=== PATIENT | female | born 1955 | race Caucasian/White ===

== ENCOUNTER 2017-10-25 10:50 | Emergency (ER) | payer MEDICARE, MEDICAID, SELFPAY ==
[2017-10-25 10:59] VITALS: BP 141/81; PULSE 88; RESP 18; TEMP 36.7; O2SAT 94
--- NOTE | 2017-10-25 12:00 | ED.GENADUL_ITS ---
Discharge Plan Discharge Details Chief Complaint: RashLesion Clinical Impression: Rash, Dermatitis Primary Care Provider: Murphy Stewart ED Provider: Diana Bo Disposition Patient Disposition: HOME Home Meds and New Rx's Prescriptions: New prednisone 20 mg tablet 20 mg PO DIRECTED Qty: 12 RF: 0 cephalexin [Keflex] 500 mg capsule 500 mg PO QID Qty: 28 RF: 0 hydrocortisone 2.5 % cream 1 applic TP BID Qty: 30 RF: 0 Continue aspirin [Aspirin Low-Strength] 81 MG tablet,chewable 1 - 2 tab PO DAILY PRNRF: 0 multivitamin [Daily-Lorin] 1 EACH tablet 1 ea PO DAILY RF: 0 Discharge Instructions Instructions: Dermatitis (ED) Additional Instructions: Take the oral steroids and antibiotics until finished. Once you have finished the oral steroids, he may start the 2% hydrocortisone cream if needed for your chronic itchy rash. Call your time study engineer to schedule follow-up appointment for reevaluation. Follow up with your primary care doctor in 1 week for reevaluation. Return to the emergency department with any worsening or new concerning symptoms. Discharge Data Discharge Physician: Diana Bo Medical Decision Making MDM Narrative Medical decision making narrative: 62-year-old female who presents for pruritic mildly tender rash on her right forearm for the past month. She states she has been treating it at home with hydrocortisone, Vaseline and peroxide without relief. She denies new exposures or meds. She denies difficulty breathing, throat swelling or difficulty swallowing. She does have scattered excoriations noted on her bilateral upper and lower extremities which appear consistent with picking of her skin. She does admit to picking due to itching. She states she has had a chronic rash on her right hip for the past year which she has seen dermatology for and treated with hydrocortisone. She states it has persisted. We talked about the possibility of bug bites and she states this is possible. The rash on her right forearm appears similar in presentation to the excoriations on the remainder of her extremities but is more coalesced and with surrounding scaling and dermatitis with the possibility of a very mild superficial bacterial infection. There is no abscess or significant cellulitis. I do not see any indication for lab work and imaging and patient is agreeable. Patient otherwise has normal vitals and appears nontoxic. Patient has a noted allergy to Trimox which causes hives. She states she otherwise has taken Keflex in the past for cellulitis and has tolerated this well without any respiratory symptoms. Patient is requesting Keflex for an antibiotic if needed. Will treat with oral steroid course as well as prescription for Keflex. Patient is instructed to follow-up with dermatology again for reevaluation. She also expressed concern about the chronic right hip and thigh rash for the past year. This rash does appear similar in presentation to the other excoriations noted on her upper extremities. She states 1% hydrocortisone has not worked in the past and 5% hydrocortisone was too strong for her and made her feel shaky. We will also give a prescription for 2% hydrocortisone to start after the p.o. steroids if needed. Patient was instructed to return to the ER with any concerns. HPI - General Adult General Mode of arrival: ambulatory . Date/Time Provider Initiated Documentation: 10/25/17 11:08 . Limitations to Documentation: no limitations . Information obtained by: patient . HPI Narrative: Patient is a 62-year-old female who presents with itchy mildly tender rash on her right forearm for the past month. She has been treating at home with hydrocortisone, peroxide and Vaseline. She denies any new medicines, lotions, detergents, soaps, recent travel or sick contacts. She denies fever, difficulty swallowing or difficulty breathing. Related Data Home Medications Medication Instructions Recorded Confirmed aspirin [Aspirin Low-Strength] 1 - 2 tab PO DAILY PRN tab-cap 08/07/12 10/25/17 multivitamin [Daily-Lorin] 1 ea PO DAILY 07/05/17 10/25/17 Previous Rx's Medication Instructions Recorded cephalexin [Keflex] 500 mg PO QID #28 cap 10/25/17 hydrocortisone 1 applic TP BID #30 gm 10/25/17 prednisone 20 mg PO DIRECTED #12 tab 10/25/17 Allergies Allergy/AdvReac Type Severity Reaction Status Date / Time erythromycin base Allergy Intermediate HEART RACES Unverified 10/25/17 11:05 lidocaine Allergy Intermediate CHEST PAINS Unverified 10/25/17 11:05 amoxicillin trihydrate Allergy Mild Unverified 10/25/17 11:05 [From Trimox] mepivacaine AdvReac Unknown RAPID Unverified 10/25/17 11:05 HEART RATE General Stated Complaint: RashLesion UMU: 4 Review of Systems Review of Systems All systems reviewed & are unremarkable except as noted in HPI and below Constitutional Denies chills, Denies excessive sweating, Denies fatigue, Denies fever(s), Denies weakness and Denies weight loss Eyes Patient Reports system reviewed and no additional complaints, except as docu and Denies blurry vision ENT Denies vertigo, Denies dizziness, Denies otalgia, Denies nasal congestion, Denies sore throat and Denies throat swelling Cardiovascular Denies chest pain, Denies syncope, Denies rapid heart rate and Denies dyspnea Respiratory Denies chest congestion, Denies cough, Denies pain on inspiration and Denies dyspnea Gastrointestinal Denies abdominal pain, Denies diarrhea and Denies vomiting Genitourinary Denies hematuria, Denies dysuria and Denies flank pain Musculoskeletal Denies back pain and Denies joint swelling Integumentary/Breasts Reports pruritus, Reports lesions and Reports rash Neurologic Denies vertigo, Denies dizziness, Denies syncope, Denies focal weakness and Denies weakness Psychiatric Denies depression Endocrine Denies excessive sweating and Denies fatigue Hematologic/Lymphatic Denies easy bruising and Denies lymphadenopathy Allergic/Immunologic Denies throat swelling [facility] Family History Mother Personal history of malignant neoplasm Father Essential hypertension Heart disease Hyperlipidemia Sister Diabetes Personal history of malignant neoplasm Heart disease Hyperlipidemia Sister Essential hypertension Diabetes Personal history of malignant neoplasm Heart disease Mental disorder Sister Diabetes Personal history of malignant neoplasm Hyperlipidemia Sister Essential hypertension Diabetes Heart disease Hyperlipidemia Brother No problems noted. Brother Abnormal thyroid exam Grandmother Cerebrovascular accident Grandfather Heart disease Grandfather Essential hypertension Heart disease Grandmother No problems noted. Son Sleep trouble Daughter No problems noted. Daughter No problems noted. Social History Smoking/Tobacco Use Status: Never Surgical History section Exam Const General: cooperative and healthy appearing Orientation: alert and awake HENDE Head: normal to inspection Ears: hearing grossly normal bilaterally and external ears normal General nose exam: external nose normal Face and sinus: normal facial exam Eyes General: appearance normal, both eyes and all related structures Eyelids: eyelids normal Pupils: PERRL EOM: EOM intact bilaterally Neck Neck: normal visual inspection Resp Effort & Inspection: normal respiratory effort and able to speak in complete sentences Cardio Rate: regular rate Skin Other: She has scattered excoriations throughout bilateral upper and lower extremities. Her main area of concern is her right dorsal forearm which has a significant grouping of excoriations with surrounding erythema and scaling consistent with a likely dermatitis of the forearm. She has multiple singular excoriations on remainder of bilateral upper and lower extremities. There is no fluctuance, induration, drainage or bleeding. Neuro General: alert and awake Cognition: normal cognition Speech: speech normal Gait: normal gait Motor: muscle tone normal throughout Sensory Exam: no sensory deficits noted Extrem General: normal to inspection, full ROM and normal capillary refill Psych Appearance: grossly normal Mental Status: mental status grossly normal Speech and Movement: speech and movement normal Affect: normal affect Thought Process: normal Course Vital Signs Temperature 98.1 F 10/25/17 10:59 Pulse 88 10/25/17 10:59 Respiratory Rate 18 10/25/17 10:59 Blood Pressure 141/81 H 10/25/17 10:59 Pulse Oximetry 94 L 10/25/17 10:59 Temperature 98.1 F 10/25/17 10:59 Pulse 88 10/25/17 10:59 Respiratory Rate 18 10/25/17 10:59 Blood Pressure 141/81 H 10/25/17 10:59 Pulse Oximetry 94 L 10/25/17 10:59
== END 2017-10-25 12:10 | disposition home or self-care (01) ==
PROVIDERS: Emergency Provider Physician Assistant; PCP Family Medicine
DX: L30.8 Other specified dermatitis (principal); R21 Rash and other nonspecific skin eruption
CPT/HCPCS: 99283

== ENCOUNTER 2017-11-21 00:53 | Outpatient (CLI) | payer MEDICARE, MEDICAID, SELFPAY ==
--- NOTE | 2017-11-21 10:35 | DI.RAD_ITS ---
SYMPTOMS/DIAGNOSIS: SHORTNESS OF BREATH, R06.02, RECENT ONSET DYSPNEA ON EXERTION CHEST X-RAY, PA AND LATERAL: No priors. The heart size and pulmonary vasculature are within normal limits. The lungs are clear. No effusions or pneumothoraces are identified. Degenerative changes are seen in the spine. There is a battery pack overlying the left hemithorax. IMPRESSION: No acute pulmonary process.
== END 2017-11-21 01:13 ==
PROVIDERS: PCP Family Medicine; Visit Provider Family Medicine
DX: R06.02 Shortness of breath (principal)
CPT/HCPCS: 71046

== ENCOUNTER 2018-07-25 09:13 | Outpatient (CLI) | payer MEDICARE, MEDICAID, SELFPAY ==
[2018-07-25 10:12] LABS: Hemoglobin A1C 6.6 % (4.5-6.2)
== END 2018-07-25 09:33 ==
PROVIDERS: PCP Family Medicine; Visit Provider Family Medicine
DX: E11.9 Type 2 diabetes mellitus without complications (principal)
CPT/HCPCS: 36415; 83036

== ENCOUNTER 2018-10-25 02:44 | Outpatient (CLI) | payer MEDICARE, MEDICAID, SELFPAY ==
--- NOTE | 2018-10-25 13:49 | MERGE_ITS ---
*[facility]* *[facility]* [address] [place] [address] Date of study: 10/25/2018 Transthoracic Echocardiography M-mode, complete 2D, complete spectral Doppler, and color Doppler *STUDY CONCLUSIONS* Summary: 1. Left ventricle: The cavity size was normal. Wall thickness was normal. Systolic function was normal. The estimated ejection fraction was 60-65%. Wall motion was normal; there were no regional wall motion abnormalities. 2. Right ventricle: The cavity size was normal. Systolic function was normal. 3. Inferior vena cava: The vessel was patent and normal in size. The respirophasic diameter changes were in the normal range (greater than or equal to 50%), consistent with normal central venous pressure. *PATIENT PRESENTATION* Height: 149.9cm (59in ) S/D Pressure: 136 / 86 Weight: 77.6kg (170.6lb ) BSA: 1.84m^2 Test start time: 02:10 PM. Test stop time: 02:50 PM. PERFORMING Unknown CONSULTING Murphy Stewart ORDERING Murphy tSewart REFERRING Murphy Stewart PERFORMING [facility] PONY RIDE ATTENDANT RT Roque Miller)(ALVAREZ)MADISYN *PROCEDURE DATA* Procedure information: The patient was identified by two identifiers. This study was interpreted by [facility]. Pertinent images and digital data are archived for permanent storage and are available for subsequent review. No prior study was available for comparison. Study status: Routine. Transthoracic echocardiography. M-mode, complete 2D, complete spectral Doppler, and color Doppler. A Transthoracic Echocardiogram was performed. Scanning was performed from the parasternal, apical, subcostal, and suprasternal notch acoustic windows. Images were obtained using an [id number] cardiac ultrasound machine. Image quality was adequate. Study completion: The patient tolerated the procedure well. There were no complications. History: PMH: Chest discomfort and FERGUSON R06.09. *CARDIAC ANATOMY* Left ventricle: The cavity size was normal. Wall thickness was normal. Systolic function was normal. The estimated ejection fraction was 60-65%. Wall motion was normal; there were no regional wall motion abnormalities. Aortic valve: Trileaflet; normal thickness leaflets. Mobility was not restricted. Doppler: Transvalvular velocity was within the normal range. There was no stenosis. There was no significant regurgitation. VTI ratio of LVOT to aortic valve: 0.76. Valve area (VTI): 2.8cm^2. Indexed valve area (VTI): 1.5cm^2/m^2. Peak velocity ratio of LVOT to aortic valve: 0.56. Valve area (Vmax): 2.1cm^2. Indexed valve area (Vmax): 1.1cm^2/m^2. Mean velocity ratio of LVOT to aortic valve: 0.66. Valve area (Vmean): 2.4cm^2. Indexed valve area (Vmean): 1.3cm^2/m^2. Mean gradient (S): 3mm Hg. Peak gradient (S): 5.8mm Hg. Aorta: Aortic root: The aortic root was mildly dilated (39 mm). Ascending aorta: The ascending aorta was normal in size. Mitral valve: Structurally normal valve. Mobility was not restricted. Doppler: Transvalvular velocity was within the normal range. There was no evidence for stenosis. There was no significant regurgitation. Valve area by pressure half-time: 2.8cm^2. Indexed valve area by pressure half-time: 1.5cm^2/m^2. Left atrium: The atrium was normal in size. Right ventricle: The cavity size was normal. Systolic function was normal. Pulmonic valve: The pulmonary valve appears to be grossly normal. Doppler: Transvalvular velocity was within the normal range. There was no evidence for stenosis. There was trivial regurgitation. Tricuspid valve: Structurally normal valve. Doppler: Transvalvular velocity was within the normal range. There was no evidence for stenosis. There was no significant regurgitation. Pulmonary artery: Poorly visualized. Systolic pressure could not be accurately estimated. Right atrium: The atrium was normal in size. Pericardium: There was no pericardial effusion. Systemic veins: Inferior vena cava: Well visualized. The vessel was patent and normal in size. The respirophasic diameter changes were in the normal range (greater than or equal to 50%), consistent with normal central venous pressure. Baseline ECG: Normal sinus rhythm. Measurements Left ventricle Value Reference LV ID, ED, PLAX 3.9 cm 3.5 - 6.0 LV ID, ES, PLAX 2.6 cm 2.1 - 4.0 LV PW thickness, ED, PLAX 0.9 cm LV e', lateral 0.09 m/sec LV E/e', lateral 5 LV e', medial 0.082 m/sec LV E/e', medial 5 LV e', average 0.086 m/sec LV E/e', average 5 Ventricular septum Value Reference IVS thickness, ED, PLAX 1.0 cm LVOT Value Reference LVOT ID, A-P 2.2 cm LVOT area 3.7 cm^2 LVOT peak velocity, S 0.67 m/sec LVOT mean velocity, S 0.54 m/sec LVOT VTI, S 13.6 cm LVOT peak gradient, S 1.8 mm Hg LVOT mean gradient, S 1.3 mm Hg Stroke volume (SV), LVOT DP 51 ml Stroke index (SV/bsa), LVOT DP 28 ml/m^2 Aortic valve Value Reference Aortic valve peak velocity, S 1.2 m/sec Aortic valve mean velocity, S 0.8 m/sec Aortic valve VTI, S 18.0 cm Aortic mean gradient, S 3 mm Hg Aortic peak gradient, S 5.8 mm Hg VTI ratio, LVOT/AV 0.76 Aortic valve area, VTI 2.8 cm^2 Velocity ratio, peak, LVOT/AV 0.56 Aortic valve area, peak velocity 2.1 cm^2 Velocity ratio, mean, LVOT/AV 0.66 Aortic valve area, mean velocity 2.4 cm^2 Aortic valve area/bsa, mean velocity 1.3 cm^2/m^2 Aorta Value Reference Aortic root ID, ED 3.9 cm Ascending aorta ID, A-P, S 3.5 cm Left atrium Value Reference LA ID, A-P, ES 3.1 cm LA ID/bsa, A-P 1.7 cm/m^2 <=2.2 LA volume/bsa, ES, 1-p A4C 18 ml/m^2 LA/aortic root ratio 0.81 Mitral valve Value Reference Mitral E-wave peak velocity 0.44 m/sec Mitral A-wave peak velocity 0.58 m/sec Mitral deceleration time (H) 274 ms 150 - 230 Mitral pressure half-time 79 ms Mitral E/A ratio, peak 0.76 Mitral valve area, PHT, DP 2.8 cm^2 Right atrium Value Reference RA area, ES, A4C 11.7 cm^2 8.3 - 19.5 Legend: (L) and (H) nakita values outside specified reference range. I have personally reviewed the images and have reviewed and edited the reported findings. Electronically signed by Kimberly Devine 10/27/2018 09:25
== END 2018-10-25 03:04 ==
PROVIDERS: PCP Family Medicine; Visit Provider Family Medicine
DX: R06.09 Other forms of dyspnea (principal); R07.9 Chest pain, unspecified
CPT/HCPCS: 93306

== ENCOUNTER 2018-10-27 09:25 | Outpatient (CLI) | payer MEDICARE, MEDICAID, SELFPAY | END 2018-10-27 09:45 | PROVIDERS: PCP Family Medicine; Referring Provider Family Medicine; Visit Provider Internal Medicine Cardiovascular Disease | DX: R06.09 Other forms of dyspnea (principal); R07.9 Chest pain, unspecified | CPT/HCPCS: 93306 ==

== ENCOUNTER 2018-11-20 02:13 | Outpatient (CLI) | payer MEDICARE, MEDICAID, SELFPAY ==
[2018-11-20 10:04] LABS: Anion Gap 9.1 mmol/L (3-11); BUN 11 mg/dL (7-18); CO2 29.9 mmol/L (21.0-32.0); CREATININE 0.75 mg/dL (0.55-1.02); Calcium 9.3 mg/dL (8.5-10.1); Calculated LDL 137 mg/dL; Chloride 102 mmol/L (98-107); Cholesterol 228 mg/dL (50-200); Glucose 125 mg/dL (70-100); HDL Cholesterol 58 mg/dL (40-60); Potassium 4.3 mmol/L (3.5-5.1); Sodium 141 mmol/L (136-145); Triglyceride 168 mg/dL (30-150)
== END 2018-11-20 02:33 ==
PROVIDERS: PCP Family Medicine; Visit Provider Family Medicine
DX: E78.5 Hyperlipidemia, unspecified (principal); I10 Essential (primary) hypertension
CPT/HCPCS: 80048; 80061

== ENCOUNTER 2019-04-01 02:19 | Outpatient (CLI) | payer MEDICARE, MEDICAID, SELFPAY ==
--- NOTE | 2019-04-22 10:22 | W.ZIOMONITOR ---
Date of service: 04/22/19 Time of Service: 10:22 ZIO Patch [employer] Receiver Note: This is a 2-week ZIO patch ordered for indication of palpitations. ?The patient was in normal sinus rhythm for the majority of the recording. Minimum heart rate was 45 bpm maximal heart rate 154 bpm. ?There were 6 episodes of supraventricular tachycardia with the longest lasting 12 seconds. ?There were rare (less than 1%) premature atrial contractions. ?There were no episodes of ventricular tachycardia and rare (less than 1%) single ventricular ectopic beats. There were rare couplets. ?There were no episodes of atrial fibrillation no pauses greater than 3 seconds and no episodes of high degree heart block. ?There were no patient triggered events.
== END 2019-04-01 02:39 ==
PROVIDERS: PCP Family Medicine; Visit Provider Family Medicine
DX: R00.2 Palpitations (principal); I49.3 Ventricular premature depolarization; I49.1 Atrial premature depolarization
CPT/HCPCS: 0296T

== ENCOUNTER 2019-04-22 10:22 | Outpatient (CLI) | payer MEDICARE, MEDICAID, SELFPAY | END 2019-04-22 10:42 | PROVIDERS: PCP Family Medicine; Referring Provider Family Medicine; Visit Provider Internal Medicine Cardiovascular Disease | DX: R00.2 Palpitations (principal); I49.3 Ventricular premature depolarization; I49.1 Atrial premature depolarization | CPT/HCPCS: 0298T ==

== ENCOUNTER 2020-10-07 15:21 | Outpatient (REF) | payer MEDICARE, MEDICAID, SELFPAY ==
[2020-10-07 18:13] LABS: Calculated LDL 126 mg/dL (<100); Cholesterol 218 mg/dL (<200); HDL Cholesterol 50 mg/dL (40-60); Triglyceride 214 mg/dL (<150)
== END 2020-10-07 15:22 | disposition home or self-care (01) ==
LOC: LBN 15:21
PROVIDERS: PCP Nurse Practitioner; Visit Provider Nurse Practitioner
DX: E78.5 Hyperlipidemia, unspecified (principal)
CPT/HCPCS: 80061

== ENCOUNTER 2020-10-08 22:06 | Emergency (ER) | payer MEDICARE, MEDICAID, SELFPAY ==
[2020-10-08] VITALS (7 sets, daily range): BP systolic 126–146; BP diastolic 69–84; PULSE 79–90; RESP 18; O2SAT 69–97
--- NOTE | 2020-10-08 22:51 | ED.GENADUL_ITS ---
Discharge Plan Disposition Patient Disposition: HOME Condition: Stable Discharge Details Clinical Impression: Cervical paraspinal muscle spasm Primary Care Provider: [facility] ED Provider: Diana Bo Home Meds and New Rx's Prescriptions: Continued aspirin [Aspirin Low-Strength] 81 MG tablet,chewable 1 - 2 tab PO DAILY PRNRF: 0 multivitamin [Daily-Lorin] 1 EACH tablet 1 ea PO DAILY RF: 0 ibuprofen 200 mg capsule 200 mg PO Q6H PRNRF: 0 methocarbamol 500 mg tablet 500 mg PO TID PRN (Reason: spasms) Qty: 30 RF: 0 Discharge Instructions Instructions: Cervical Strain (ED), Neck Pain (ED) Additional Instructions: Alternate ice and heat to the affected area(s) several times daily for 20 minutes at a time. You can take 600 mg of ibuprofen every 6 hours and 500 mg of Tylenol every 4 hours as needed and for pain. touch up edger your prescription for the muscle relaxer methocarbamol at your pharmacy tomorrow. You were sent home with 2 tabs of Valium to take as needed and directed for pain relief. This medication is a muscle relaxer and can provide additional pain relief. Do not take this at the same time as your other prescription muscle relaxer methocarbomol. Call your primary care doctor on Sunday to schedule a follow-up appointment for reevaluation. Return immediately to the emergency department if you develop any worsening or new concerning symptoms. Discharge Data Discharge Date/Time-TO BE ENTERED AT DEPARTURE: 10/08/20 23:40 Discharge Physician: Diana Bo Medical Decision Making 65-year-old female presents with neck pain for the past few days that is worse with head movement. Seen for her PCP for a general checkup and was evaluated for neck pain which was found to likely be musculoskeletal. She states she was offered muscle relaxers but declined. She called the PCP office today when her pain worsened and she thinks they may have called in a muscle relaxer for her but she is unsure as the pharmacy was closed. Patient appears comfortable and nontoxic. Her pain is in the bilateral paraspinal cervical region, worse on the left and worse with head movement. She has limitation of head rotation secondary to neck pain. Her paraspinal muscles are tender to palpation. She has no focal deficits and is neurovascularly intact. Suspect most likely muscular strain versus cervical spasm. Patient declined Toradol IM injection. She also declined oral oxycodone. She was given a dose of ibuprofen, Decadron p.o., Valium p.o. with some relief. She was given 2 tabs of Valium for home. Her medication list noted that Genoveva had been called into her pharmacy. She is advised to not take the Valium and methocarbamol at the same time. Advised to alternate ice and heat. Advised to call the PCP on Sunday morning for follow-up. Usual and customary return precautions given prior to discharge. Medical Records Medical records reviewed: Yes I reviewed the patient's medical records. HPI General Mode of arrival: ambulatory . Date/Time Provider Initiated Documentation: 10/08/20 22:30 . Limitations to Documentation: no limitations . Information obtained by: patient . HPI Narrative: Patient is a 65-year-old female who presents to the ED with complaint of neck pain for just over 1 week. Patient states the pain is mainly on the left side of her neck and worse with head movement. She states she saw her primary care doctor this week for an unrelated complaint and discussed her left-sided neck pain and was offered a muscle relaxer which she declined. She denies any relief with ibuprofen. Patient denies any radiation of pain, numbness or weakness in her arms bilaterally. She denies any known injury. Related Data Home Medications Medication Instructions Recorded Confirmed aspirin [Aspirin Low-Strength] 1 - 2 tab PO DAILY PRN tab-cap 08/07/12 10/08/20 multivitamin [Daily-Lorin] 1 ea PO DAILY 07/05/17 10/08/20 ibuprofen 200 mg capsule 200 mg PO Q6H PRN 01/05/20 10/08/20 methocarbamol 500 mg tablet 500 mg PO TID PRN #30 tab 10/08/20 10/08/20 Previous Rx's Medication Instructions Recorded methocarbamol 500 mg tablet 500 mg PO TID PRN #30 tab 10/08/20 Allergies Allergy/AdvReac Type Severity Reaction Status Date / Time erythromycin base Allergy Intermediate HEART RACES Verified 10/08/20 22:43 lidocaine Allergy Intermediate CHEST PAINS Verified 10/08/20 22:43 amoxicillin trihydrate Allergy Mild Verified 10/08/20 22:43 [From Trimox] mepivacaine AdvReac Unknown RAPID Verified 10/08/20 22:43 HEART RATE General Stated Complaint: Nk/Back Pain UMU: 4 Review of Systems All systems reviewed & are unremarkable except as noted in HPI and below Constitutional Constitutional: Reports as per HPI, Denies chills and Denies fever(s) Eyes Eyes: Denies blurry vision ENT Ears, Nose, Mouth, and Throat: Denies dizziness, Reports neck pain, Denies sore throat and Denies throat swelling Cardiovascular Cardiovascular: Denies chest pain and Denies dyspnea Respiratory Respiratory: Denies cough and Denies dyspnea Gastrointestinal Gastrointestinal: Denies abdominal pain, Denies diarrhea and Denies vomiting Genitourinary Genitourinary: Denies hematuria and Denies dysuria Musculoskeletal Musculoskeletal: Denies back pain, Reports neck pain and Denies numbness Integumentary/Breasts Skin/Breast: Denies lesions and Denies rash Neurologic Neurologic: Denies dizziness, Denies localized weakness and Denies numbness Allergic/Immunologic Allergic/Immunologic: Denies throat swelling [facility] Medical History (Updated 10/08/20 @ 23:31 by Diana Bo DO) Chronic bilateral low back pain without sciatica (06/07/17) Diet-controlled diabetes mellitus Uterine leiomyoma (12/20/10) Surgical History section X 2 History of section Family History Mother Personal history of malignant neoplasm Multiple myeloma Father Essential hypertension Heart disease Hyperlipidemia Sister Diabetes Personal history of malignant neoplasm Heart disease Hyperlipidemia Sister Essential hypertension Diabetes Personal history of malignant neoplasm Ovarian Heart disease Mental disorder Sister Diabetes Personal history of malignant neoplasm Adrenal carcinoma(?) Hyperlipidemia Sister Essential hypertension Diabetes Heart disease Hyperlipidemia Brother No problems noted. Brother Abnormal thyroid exam Grandmother Stroke Grandfather Heart disease Grandfather Essential hypertension Heart disease Grandmother No problems noted. Son Sleep trouble Daughter No problems noted. Daughter No problems noted. Social History (Updated 04/12/20 @ 09:36 by Rach Luna) Smoking/Tobacco Use Status: Never Second Hand Exposure: Yes Smoking risk assessment performed?: Yes Alcohol Intake: never Drug use: Never Substance use type: does not use Caregiver/Support person: No Household members: none Housing: apartment Communication Needs: Blind Education Level: other Details: LEGALLY BLIND Do you need help understanding health information?: Never Pets and animals: No Sexually active: No Do you think of yourself as: straight/heterosexual Current gender identity: female What is your relationship status?: How often do you talk on the phone with friends or family?: three or more times per week Do you belong to any clubs or organized social groups?: no Panel score (0-1 are the most socially isolated patients): 1 Dora/Church: None Seatbelt use: always Drive intox or ride w/intox furniture delivery driver: No Do you feel safe at home: Yes Do you feel safe in your relationship?: Yes Exam Const General: cooperative and no acute distress HENMT Head: normal to inspection Face and sinus: normal facial exam Eyes General: appearance normal, both eyes and all related structures EOM: EOM intact bilaterally Neck Neck: normal visual inspection and No submandibular swelling Lymphatic: no lymphadenopathy noted Chest Chest: normal inspection of the chest and no tenderness Resp Effort & Inspection: normal respiratory effort and able to speak in complete sentences Auscultation: clear to auscultation bilaterally Cardio Rate: regular rate Rhythm: regular rhythm GI Inspection: normal to inspection Palpation: soft, not firm, not rigid and nontender Auscultation: normal bowel sounds Back/Spine/Pelvis Cervical Spine: cervical muscular tenderness (b/l, worse on L side), pain with cervical ROM and No cervical spinal tenderness Skin General skin exam: no rashes or lesions noted Neuro General: patient alert, patient awake and patient oriented x3 Cognition: normal cognition Speech: speech normal Motor: muscle tone normal throughout Sensory Exam: no sensory deficits noted Extrem General: normal to inspection, full ROM, capillary refill normal, no calf tenderness bilaterally and no edema Other: Skin color to distal bilateral upper extremities normal to inspection. There is no edema, cyanosis, erythema, rash or lesions. Bilateral radial and ul yaniv pulses intact. Psych Appearance: grossly normal Mental Status: mental status grossly normal Speech and Movement: speech and movement normal Affect: normal affect Course Vital Signs Vital signs: Vital Signs Pulse 90 10/08/20 22:39 Respiratory Rate 18 10/08/20 22:39 Blood Pressure 141/69 H 10/08/20 22:39 Pulse Oximetry 69 L 10/08/20 22:39 Pulse 90 10/08/20 22:39 Respiratory Rate 18 10/08/20 22:39 Respiratory Effort Non-Labored 10/08/20 22:44 Blood Pressure 141/69 H 10/08/20 22:39 Pulse Oximetry 69 L 10/08/20 22:39 Pain Level 10 10/08/20 22:39
[2020-10-08] MEDS: Ibuprofen 600 MG TAB PO (23:20)
[2020-10-08] MEDS: Dexamethasone 10 MG/ML VIAL PO (23:20)
[2020-10-08] MEDS: diazePAM 5 MG TAB PO (23:20)
--- NOTE | 2020-10-08 23:28 | NUR.NOTE ---
Patient family enroute to drive her home.
[2020-10-08] MEDS: diazePAM 5 MG TAB 10 MG PO (23:49)
== END 2020-10-08 23:40 | disposition home or self-care (01) ==
PROVIDERS: Emergency Provider Physician Assistant; PCP Nurse Practitioner
DX: M54.2 Cervicalgia (principal); M62.838 Other muscle spasm
CPT/HCPCS: 99283; J1100

== ENCOUNTER 2020-11-21 06:38 | Emergency (ER) | payer MEDICARE, MEDICAID, SELFPAY ==
[2020-11-21] VITALS (7 sets, daily range): BP systolic 134–140; BP diastolic 58–76; PULSE 92–100; RESP 16–19; TEMP 36.6; O2SAT 98–100
--- NOTE | 2020-11-21 06:45 | RT.EKG_ITS ---
APPROVED REPORT Exam: Resting ECG Reason for Exam: dizziness Patient Location: E HR:93 bpm ECG Measurements Heart Rate 93 AXIS PA 146 P 57 QRSd 87 QRS 8 QT 374 T [id number] QTc 465 Conclusion Sinus rhythm...normal P axis, V-rate 60- 99 Physician: Rate 93, sinus rhythm, no significant ST elevation or depression, no T wave inversions, no evidence o f STEMI.
--- NOTE | 2020-11-21 06:55 | DI.CT_ITS ---
Exam(s) CT BRAIN NECK CTA EXAM: CT BRAIN NECK CTA CLINICAL HISTORY: dizzy, syncope, r/o stroke. TECHNIQUE: Imaging Protocol: Axial CT angiography was performed with multi-slice acquisition and mu lti-planar and/or 3D reconstructions. CONTRAST MATERIAL: Intravenous: Omnipaque 350 Contrast volume:150 mL COMPARISON: No exams were available for comparison FINDINGS: CT Head W/O and W: Ventricles and Extra axial spaces: Normal in size and morphology for the patient's age. Hemorrhage: None. Cerebral parenchyma: Normal. Midline shift: None. Brainstem/Cerebellum: Normal. Calvarium: Normal. Visualized Paranasal sinuses/Mastoids: Clear. Soft Tissues: Unremarkable. Enhancement: Unremarkable. CTA Neck W: Common Carotid: Right: No dissection, occlusion or significant stenosis. Left: No dissection, occlusion or significant stenosis. External Carotid: Right: No occlusion or significant stenosis. Left: No occlusion or significant stenosis. Internal Carotid: Right: No dissection, occlusion or significant stenosis. Left: No dissection, occlusion or significant stenosis. Vertebral Artery: Right: No dissection, occlusion or significant stenosis. Left: No dissection, occlusion or significant stenosis. Lung Apices: Normal. Bones: Normal. Soft Tissues: Normal. CTA Brain W: Internal Carotid Arteries: Petrous: Normal. Cavernous: Normal. Cerebral: Normal. Anterior Cerebral Arteries: Right: No aneurysm, occlusion or significant stenosis. Left: No aneurysm, occlusion or significant stenosis. Middle Cerebral Arteries: Right: No aneurysm, occlusion or significant stenosis. Left: No aneurysm, occlusion or significant stenosis. Posterior cerebral Arteries: Right: No aneurysm, occlusion or significant stenosis. Left: No aneurysm, occlusion or significant stenosis. Vertebral Arteries: Right: No aneurysm, occlusion or significant stenosis. Left: No aneurysm, occlusion or significant stenosis. Basilar Artery: No aneurysm, occlusion or significant stenosis. IMPRESSION: 1. No large vessel occlusion or significant stenosis on the CT angiography of the head. 2. No acute intracranial process. 3. No occlusion or significant stenosis on the CT angiography of the neck. RADIATION DOSE DELIVERED: 2,057.81mGy.cm Total DLP DATA REPOSITORY: All CT scans at this facility are submitted to the National Radiology Data Registry (NRDR) Dose Index Registry (DIR) with the [employer] (ACR). RADIATION OPTIMIZATION: All CT scans at this facility use at least one of these dose optimization te chniques: automated exposure control; mA and/or kV adjustment per patient size (includes targeted exa ms where dose is matched to clinical indication); or iterative reconstruction.
--- NOTE | 2020-11-21 06:59 | ED.GENADUL_ITS ---
Discharge Plan Disposition Patient Disposition: HOME Condition: Stable Discharge Details Clinical Impression: Vertigo Primary Care Provider: Maine [facility] ED Provider: Gary Stiles Home Meds and New Rx's Prescriptions: New meclizine 25 mg tablet 25 mg PO TID PRNQty: 30 RF: 0 Continued aspirin [Aspirin Low-Strength] 81 MG tablet,chewable 1 - 2 tab PO DAILY PRNRF: 0 multivitamin [Daily-Lorin] 1 EACH tablet 1 ea PO DAILY RF: 0 ibuprofen 200 mg capsule 200 mg PO Q6H PRNRF: 0 methocarbamol 500 mg tablet 500 mg PO TID PRN (Reason: spasms) Qty: 30 RF: 0 Discharge Instructions Instructions: Vertigo (ED) Additional Instructions: your blood work and cat scan did not show any emergent findings follow up with your primary care provider this week and I placed you on our follow up list to assist with this if you feel more ill, have fevers or worsening weakness return to the emergency department Medical Decision Making <Moise Christensen, - Last Filed: 11/21/20 07:09> 65-year-old female with a past medical history of type 2 diabetes, retinitis pigmentosa, neurodermatitis, high cholesterol, obstructive sleep apnea, who presents today for dizziness and lightheadedness. Patient states that at 4 AM when she got up she noticed that she was very lightheaded and felt that the room was spinning horizontally. She did not fall or hit her head. She did take a baby aspirin. She denies any significant headache or neck pain. She denies any chest pain or shortness of breath. She states that she has felt lightheaded in the past when she was taking muscle relaxants but she denies any dizziness like this before. No other complaints at this time. Symptoms are made worse when she moves her head, improved by lying still. Physical exam demonstrates horizontal unidirectional rightward fatigable nystagmus, no vertical or rotatory nystagmus. Certain components of neurologic exam is limited secondary to the patient blindness. No other clear focal neurologic deficits are noted though. Mucous membranes are notably dry, suspect potential for peripheral vertigo, however because of her age and risk factors will get a CT/CTA to evaluate for acute intercranial abnormality. Symptom onset was 3 hours ago, however her symptoms at this time do not clinically look like a significant cerebellar stroke, and she certainly does not meet TPA candidacy currently. EKG 6: 47 Rate 93, sinus rhythm, no significant ST elevation or depression, no T wave inversions, no evidence of STEMI. <Gary Stiles MD - Last Filed: 11/21/20 10:32> ct imaging unremarkble and labs show no emergent findings. She is able to ambulate at her baseline and feels better but would like a walker in case she has dizziness again and feels more stable with this, has no deficits on exam to suggest central cva and given she is at her baseline do not feel she requires emergent MRI. Will place her on the follow up list to see her pcp this week and return precautions given. Imaging Data Radiologic Study: Attestation: I personally reviewed and interpreted this imaging study as follows: Imaging: CT Scan Radiologist's impression: IMPRESSION: 1. No severe stenosis or occlusion of the vessels of the [id number] or their visualized branches. 2. The noncontrasted CT scan of the brain shows no acute intracranial findings. 3. Severe dental disease as above. IMPRESSION: 1. Normal right extracranial internal carotid artery by NASCET criteria. 2. Normal left intracranial internal carotid artery by NASCET criteria. 3. Patent bilateral vertebral arteries with a dominant right vertebral. Lab Data Lab results reviewed: Yes I reviewed the patient's lab results. HPI <Moise Christensen DO - Last Filed: 11/21/20 07:09> General Date/Time Provider Initiated Documentation: 11/21/20 06:44 . HPI Narrative: 65-year-old female with a past medical history of type 2 diabetes, retinitis pigmentosa, neurodermatitis, high cholesterol, obstructive sleep apnea, who presents today for dizziness and lightheadedness. Patient states that at 4 AM when she got up she noticed that she was very lightheaded and felt that the room was spinning horizontally. She did not fall or hit her head. She did take a baby aspirin. She denies any significant headache or neck pain. She denies any chest pain or shortness of breath. She states that she has felt lightheaded in the past when she was taking muscle relaxants but she denies any dizziness like this before. No other complaints at this time. Symptoms are made worse when she moves her head, improved by lying still. Related Data Home Medications Medication Instructions Recorded Confirmed aspirin [Aspirin Low-Strength] 1 - 2 tab PO DAILY PRN tab-cap 08/07/12 11/21/20 multivitamin [Daily-Lorin] 1 ea PO DAILY 07/05/17 11/21/20 ibuprofen 200 mg capsule 200 mg PO Q6H PRN 01/05/20 11/21/20 methocarbamol 500 mg tablet 500 mg PO TID PRN #30 tab 10/08/20 10/08/20 meclizine 25 mg PO TID PRN #30 tab 11/21/20 Previous Rx's Medication Instructions Recorded methocarbamol 500 mg tablet 500 mg PO TID PRN #30 tab 10/08/20 meclizine 25 mg PO TID PRN #30 tab 11/21/20 Allergies Allergy/AdvReac Type Severity Reaction Status Date / Time erythromycin base Allergy Intermediate HEART RACES Verified 10/08/20 22:43 lidocaine Allergy Intermediate CHEST PAINS Verified 10/08/20 22:43 amoxicillin trihydrate Allergy Mild Verified 10/08/20 22:43 [From Trimox] mepivacaine AdvReac Unknown RAPID Verified 10/08/20 22:43 HEART RATE General Stated Complaint: Dizzy/Sync UMU: 3 Review of Systems <Moise Christensen DO - Last Filed: 11/21/20 07:09> All systems reviewed & are unremarkable except as noted in HPI and below PFSH <Moise Christensen DO - Last Filed: 11/21/20 07:09> Medical History Chronic bilateral low back pain without sciatica (06/07/17) Diet-controlled diabetes mellitus Uterine leiomyoma (12/20/10) Surgical History section X 2 History of section Family History Mother Personal history of malignant neoplasm Multiple myeloma Father Essential hypertension Heart disease Hyperlipidemia Sister Diabetes Personal history of malignant neoplasm Heart disease Hyperlipidemia Sister Essential hypertension Diabetes Personal history of malignant neoplasm Ovarian Heart disease Mental disorder Sister Diabetes Personal history of malignant neoplasm Adrenal carcinoma(?) Hyperlipidemia Sister Essential hypertension Diabetes Heart disease Hyperlipidemia Brother No problems noted. Brother Abnormal thyroid exam Grandmother Stroke Grandfather Heart disease Grandfather Essential hypertension Heart disease Grandmother No problems noted. Son Sleep trouble Daughter No problems noted. Daughter No problems noted. Social History Smoking/Tobacco Use Status: Never Second Hand Exposure: Yes Smoking risk assessment performed?: Yes Alcohol Intake: never Drug use: Never Substance use type: does not use Caregiver/Support person: No Household members: none Housing: apartment Communication Needs: Blind Education Level: other Details: LEGALLY BLIND Do you need help understanding health information?: Never Pets and animals: No Sexually active: No Do you think of yourself as: straight/heterosexual Current gender identity: female What is your relationship status?: How often do you talk on the phone with friends or family?: three or more times per week Do you belong to any clubs or organized social groups?: no Panel score (0-1 are the most socially isolated patients): 1 Dora/Latter-Day: None Seatbelt use: always Drive intox or ride w/intox tilt tray driver: No Do you feel safe at home: Yes Do you feel safe in your relationship?: Yes Exam <Moise Christensen DO - Last Filed: 11/21/20 07:09> Narrative Exam Narrative: 1.Const: Well-nourished, Well-developed, appearing stated age 2.Eyes: PERRL, no conjunctival injection, and symmetrical lids. Mild right sided fatigable unidirectional horizontal nystagmus is present, no vertical or rotatory nystagmus. 3.ENT: Atraumatic external nose and ears. Moist MM. Neck: Symmetric, trachea midline, No thyromegaly. 4.CVS: +S1/S2, No murmurs or gallops. Peripheral pulses 2+ and equal in all extremities. Brisk capillary refill in all extremities. 5.RESP: Unlabored respiratory effort. Clear to auscultation bilaterally. No wheezes rales or rhonchi 6.GI: Soft, Nontender/Nondistended, No hepatosplenomegaly. No guarding or rebound. 7.MSK: Normocephalic/Atraumatic, Extremities w/o deformity or ttp No cyanosis or clubbing, Normal movement of all extremities 8.Skin: Warm, Dry. No rashes or lesions. 9.Neuro: morning babysitter II-XII grossly intact. Sensation grossly intact, no focal neurologic deficits. Unable to perform [id number] secondary to patien t's visual deficits chronically, she does not demonstrate any abnormal rapid alternating movements. She has a normal [id number]-[id number] test. Test of skew shows no horizontal or vertical correction. 10.Psych: (AAO) x3. Appropriate mood and affect Course <Moise Christensen DO - Last Filed: 11/21/20 07:09> Vital Signs Vital signs: Vital Signs Temperature 36.6 C 11/21/20 06:41 Pulse 99 H 11/21/20 06:41 Respiratory Rate 18 11/21/20 06:41 Blood Pressure 140/76 11/21/20 06:41 Pulse Oximetry 99 11/21/20 06:41 Temperature 36.6 C 11/21/20 06:41 Pulse 99 H 11/21/20 06:41 Respiratory Rate 16 11/21/20 06:47 Respiratory Effort Non-Labored 11/21/20 06:47 Respiratory Depth Normal 11/21/20 06:47 Respiratory Pattern Normal 11/21/20 06:47 Blood Pressure 140/76 11/21/20 06:41 Pulse Oximetry 99 11/21/20 06:41 Pain Level 0 11/21/20 06:41 Sign Out <Moise Christensen DO - Last Filed: 11/21/20 07:09> Sign Out Data: Sign Out Comment: Dizzy, room spinning sensation, partially blind. Pending CTA/CT, and reassessment after meclizine. Last updated by Moise Christensen DO at 11/21/20 07:28
[2020-11-21] MEDS: Normal Saline 500 ML IV (07:05)
[2020-11-21 07:06] LABS: Abs Immature Grans 0.03 10^3/uL (0.0-0.06); Absolute Basophil Count 0.03 10^3/uL (0.0-0.2); Absolute Lymphocyte Count 1.72 10^3/uL (1.2-3.4); Absolute Monocyte Count 0.46 10^3/uL (0.1-0.8); Absolute Neutrophil Count 4.03 10^3/uL (1.2-6.7); Basophils % 0.5; Eosinophils % 1.6; HCT 43.8 % (36.0-46.0); Immature Grans % 0.5; MCH 26.5 pg (27.0-33.0); MPV 10.2 fL (8.0-11.0); Monocytes % 7.2; Neutrophils % 63.2; Nucleated RBC 0 %; Platelet Count 307 10^3/uL (130-400); RBC 5.28 10^6/uL (3.93-5.22); RDW-SD 39.2 fL; WBC 6.37 10^3/uL (4.4-10.8)
[2020-11-21] MEDS: Meclizine 25 MG TAB PO (07:12)
[2020-11-21 07:22] LABS: ALT 28 U/L (14-59); AST 21 U/L (15-37); Albumin 3.7 g/dL (3.4-5.0); Alkaline Phosphatase 103 U/L (46-116); Anion Gap 4.3 mmol/L (3-11); BUN 9 mg/dL (7-18); Bilirubin, Total 0.5 mg/dL (0.2-1.0); CO2 31.7 mmol/L (21.0-32.0); CREATININE 0.9 mg/dL (0.55-1.02); Calcium 9.2 mg/dL (8.5-10.1); Chloride 102 mmol/L (98-107); Glucose 215 mg/dL (74-106); Potassium 3.7 mmol/L (3.5-5.1); Sodium 138 mmol/L (136-145); Total Protein 7.6 g/dL (6.4-8.2)
[2020-11-21] MEDS: Omnipaque 350 MG/ML 100 ML BTL IV (07:39)
[2020-11-21] MEDS: Normal Saline - Diluent 50 ML VIAL IV (07:40)
--- NOTE | 2020-11-21 08:42 | NUR.NOTE ---
walked 10 feet, said she did not feel dizzy but is shakey. walking slow. says this is not her usual way of walking. Nursing Note:
--- NOTE | 2020-11-21 09:38 | DI.VRAD_ITS ---
PROCEDURE INFORMATION: Exam: CT Angiography Head With Contrast, Arteriography Exam date and time: 11/21/2020 7:41 AM Age: 65 years old Clinical indication: Other: Dizzy, syncope, R/O stroke TECHNIQUE: Imaging protocol: Computed tomography angiography of the head with contrast. Exam focused on the arteries. 3D rendering (Not supervised by radiologist): MIP and/or 3D reconstructed images were created by the technologist. Radiation optimization: All CT scans at this facility use at least one of these dose optimization techniques: automated exposure control; mA and/or kV adjustment per patient size (includes targeted exams where dose is matched to clinical indication); or iterative reconstruction. Contrast material: 0MNIPAQUE 350; Contrast volume: 150 ml; Contrast route: INTRAVENOUS (IV); COMPARISON: No relevant prior studies available. FINDINGS: ANTERIOR CIRCULATION: Right internal carotid artery: The intracranial segment is patent with no significant stenosis. No aneurysm. Right middle cerebral artery: No occlusion or significant stenosis. No aneurysm. Right anterior cerebral artery: No occlusion or significant stenosis. No aneurysm. Left internal carotid artery: The intracranial segment is patent with no significant stenosis. No aneurysm. Left middle cerebral artery: No occlusion or significant stenosis. No aneurysm. Left anterior cerebral artery: No occlusion or significant stenosis. No aneurysm. POSTERIOR CIRCULATION: Right vertebral artery: No occlusion or significant stenosis. No aneurysm. Left vertebral artery: No occlusion or significant stenosis. No aneurysm. Basilar artery: No occlusion or significant stenosis. No aneurysm. Right posterior cerebral artery: No occlusion or significant stenosis. No aneurysm. Left posterior cerebral artery: No occlusion or significant stenosis. No aneurysm. Brain: No acute intracranial hemorrhage. No significant white matter disease. No edema. Cerebral ventricles: No ventriculomegaly. Bones/joints: No acute fracture. Soft tissues: Unremarkable. Dental: There are multiple tooth caries and multiple teeth missing their crowns. IMPRESSION: 1. No severe stenosis or occlusion of the vessels of the nawlso-fy-Bzial[place] or their visualized branches. 2. The noncontrasted CT scan of the brain shows no acute intracranial findings. 3. Severe dental disease as above. PROCEDURE INFORMATION: Exam: CT Angiography Neck With Contrast Exam date and time: 11/21/2020 7:41 AM Age: 65 years old Clinical indication: Other: Dizzy, syncope, R/O stroke TECHNIQUE: Imaging protocol: Computed tomography angiography of the neck with contrast. 3D rendering (Not supervised by radiologist): MIP and/or 3D reconstructed images were created by the technologist. Radiation optimization: All CT scans at this facility use at least one of these dose optimization techniques: automated exposure control; mA and/or kV adjustment per patient size (includes targeted exams where dose is matched to clinical indication); or iterative reconstruction. Contrast material: 0MNIPAQUE 350; Contrast volume: 150 ml; Contrast route: INTRAVENOUS (IV); COMPARISON: No relevant prior studies available. FINDINGS: Right common carotid artery: No significant stenosis. No dissection or occlusion. Right internal carotid artery: No significant stenosis of the extracranial segment. No dissection or occlusion. Right external carotid artery: No occlusion or significant stenosis of the origin. Left common carotid artery: No significant stenosis. No dissection or occlusion. Left internal carotid artery: No significant stenosis of the extracranial segment. No dissection or occlusion. Left external carotid artery: Mild proximal stenosis. Right vertebral artery: No significant stenosis. No dissection or occlusion. Left vertebral artery: No significant stenosis. No dissection or occlusion. Soft tissues: No significant soft tissue swelling. Bones/joints: No acute fracture. IMPRESSION: 1. Normal right extracranial internal carotid artery by NASCET criteria. 2. Normal left intracranial internal carotid artery by NASCET criteria. 3. Patent bilateral vertebral arteries with a dominant right vertebral. REFERENCES: NASCET CRITERIA. The degree of internal carotid artery stenosis is based on NASCET criteria. Normal is no stenosis. Mild is less than 50% stenosis. Moderate is 50-69% stenosis. Severe is 70% to 99% stenosis. Total occlusion is no detectable patent lumen. Dictated and Authenticated by: Manuel Lopez MD. Ordering:LUIS Phipps MD
--- NOTE | 2020-11-21 10:57 | NUR.NOTE ---
Nursing Note: Referral faxed to [facility] for follow up this week for vertigo. Alaina Vasques
== END 2020-11-21 10:56 | disposition home or self-care (01) ==
PROVIDERS: Student in an Organized Health Care Education/Training Program; Emergency Provider Emergency Medicine; PCP Nurse Practitioner
DX: R42 Dizziness and giddiness (principal)
CPT/HCPCS: 36415; 70496; 70498; 80053; 93005; 96360; 96361; 99285; 85025; 93010; 99284; J3490

== ENCOUNTER 2021-03-11 10:08 | Outpatient (CLI) | payer MEDICARE, MEDICAID, SELFPAY ==
[2021-03-11 11:15] VITALS: BP 125/78; PULSE 99; RESP 18; TEMP 36.4; O2SAT 97
[2021-03-11 11:50] VITALS: BP 115/70; PULSE 83; RESP 18; TEMP 36.6; O2SAT 96
[2021-03-11 12:15] VITALS: BP 93/61; PULSE 78; RESP 16; TEMP 36.7; O2SAT 97
[2021-03-11 13:05] VITALS: BP 125/75; PULSE 80; RESP 16; TEMP 36.6; O2SAT 96
== END 2021-03-11 10:09 | disposition home or self-care (01) ==
LOC: INF 10:10
PROVIDERS: PCP Family Medicine; Visit Provider Family Medicine
DX: U07.1 COVID-19 (principal)
CPT/HCPCS: 96365; Q0047

== ENCOUNTER 2021-06-29 01:40 | Outpatient (CLI) | payer MEDICARE, MEDICAID, SELFPAY ==
[2021-06-29 09:53] LABS: COMMENT (LAB VIEW ONLY) 17.46 mg/dL; Microalb ug/mg Crea 22.9 ug/mg Cr
[2021-06-29 09:58] LABS: Hemoglobin A1C 6.8 % (<5.7)
[2021-06-29 10:04] LABS: ALT 32 U/L (14-59); AST 18 U/L (15-37); Albumin 3.7 g/dL (3.4-5.0); Alkaline Phosphatase 117 U/L (46-116); Anion Gap 8.2 mmol/L (3-11); BUN 12 mg/dL (7-18); Bilirubin, Total 0.6 mg/dL (0.2-1.0); CO2 28.8 mmol/L (21.0-32.0); CREATININE 0.7 mg/dL (0.55-1.02); Calculated LDL 157 mg/dL (<100); Chloride 102 mmol/L (98-107); Cholesterol 242 mg/dL (<200); Glucose 168 mg/dL (74-106); HDL Cholesterol 70 mg/dL (40-60); Potassium 4.1 mmol/L (3.5-5.1); Sodium 139 mmol/L (136-145); TSH (W/Ref FT4) 5.09 uIU/mL (0.36-3.74); Total Protein 7.4 g/dL (6.4-8.2); Triglyceride 78 mg/dL (<150)
== END 2021-06-29 01:41 | disposition home or self-care (01) ==
LOC: LBO 01:40
PROVIDERS: PCP Family Medicine; Visit Provider Family Medicine
DX: I10 Essential (primary) hypertension (principal); E11.9 Type 2 diabetes mellitus without complications; L65.9 Nonscarring hair loss, unspecified
CPT/HCPCS: 36415; 80053; 80061; 82043; 82570; 83036; 84439; 84443

== ENCOUNTER 2021-07-10 14:06 | Emergency (ER) | payer MEDICARE, MEDICAID, SELFPAY ==
[2021-07-10 13:38] VITALS: BP 154/77; PULSE 115; RESP 18; TEMP 36.4; O2SAT 97
--- NOTE | 2021-07-10 13:47 | ED.GENADUL_ITS ---
Discharge Plan Disposition Patient Disposition: HOME Condition: Improving Discharge Details Clinical Impression: Bleeding from varicose vein Primary Care Provider: Pablo Murphy ED Provider: Damian Perez Home Meds and New Rx's Prescriptions: Continued triamcinolone acetonide 0.1 % ointment 1 applic topical BID Qty: 80 0RF Rx Instructions: to affected area prn aspirin [Aspirin Low-Strength] 81 MG tablet,chewable 1 - 2 tab PO DAILY PRN Label Comments: 06/07/17 Taking one tab daily. LR multivitamin [Daily-Lorin] 1 EACH tablet 1 ea PO DAILY ibuprofen 200 mg capsule 200 mg PO Q6H PRN meclizine 25 mg tablet 25 mg PO TID PRNQty: 30 0RF Discharge Instructions Additional Instructions: Leave current dressing in place for 72 to 96 hours, then you may remove. Continue routine medications. Return to the ER for any acute concerns. Medical Decision Making 66-year-old female presents with right lower extremity bleeding varicosity that responded to pressure seen. She has an allergy to lidocaine and therefore requested that we not pursue pursestring suture repair. They Vaseline impr egnated gauze, 4 x 4 and Mepilex were placed with cessation of bleeding. Patient is stable and appropriate for discharge. She will remove the dressing in 72 to 96 hours. HPI General Mode of arrival: EMS . Limitations to Documentation: no limitations . Information obtained by: patient and EMS . History of Present Illness 66 year old F presents to the emergency department with the chief complaint of Right lateral calf bleeding varicosity, described as mild, Quality is described as constant, and is localized to the right and lower extremity. Patient reports no radiation. Patient started experiencing this minute(s) and it has been constant. No relieving factors improve symptom(s), No exacerbating factors reported . Patient did receive the following treatments prior to arrival, other (Pressure dressing) Related Data Home Medications Medication Instructions Recorded Confirmed aspirin 81 mg chewable tablet 1 - 2 tab PO DAILY PRN 08/07/12 07/10/21 (Aspirin Low-Strength) multivitamin (Daily-Lorin tablet) 1 ea PO DAILY 07/05/17 07/10/21 ibuprofen 200 mg capsule 200 mg PO Q6H PRN 01/05/20 07/10/21 meclizine 25 mg tablet 25 mg PO TID PRN #30 tabs 11/21/20 07/10/21 triamcinolone acetonide 0.1 % 1 applic topical BID #80 grams 11/26/20 07/10/21 topical ointment Previous Rx's Medication Instructions Recorded meclizine 25 mg tablet 25 mg PO TID PRN #30 tabs 11/21/20 triamcinolone acetonide 0.1 % 1 applic topical BID #80 grams 11/26/20 topical ointment Allergies Allergy/AdvReac Type Severity Reaction Status Date / Time lidocaine Allergy Intermediate CHEST PAINS Verified 04/20/21 14:26 amoxicillin trihydrate Allergy Mild Hives, per Verified 04/20/21 14:27 [From Trimox] pt erythromycin base AdvReac Intermediate HEART RACES Verified 04/20/21 14:27 mepivacaine AdvReac Unknown RAPID Verified 04/20/21 14:26 HEART RATE General Stated Complaint: Laceration UMU: 3 Review of Systems Narrative: 6 systems reviewed and otherwise negative PFSH All Active Problems (Updated 07/10/21 @ 13:49 by Damian Perez MD) Bleeding from varicose vein (Acute) Visual loss (Acute) legally blind both eyes, very limited vision Retinitis Pigmentosa COVID-19 (Acute) 02/2021 tx with antibody infusion Cervical paraspinal muscle spasm (Acute) Vertigo (Acute) Constipation (Acute) Obstructive sleep apnea (Chronic) CPAP- doesn't use this- could not tolerate it Type 2 diabetes mellitus without complication, without long-term current use of insulin (Acute 09/11/17) Pigmentary retinal dystrophy (Acute) Peripheral venous insufficiency (Acute) Obesity (Acute) 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) Hyperlipidemia (Acute) Generalized anxiety disorder (Acute 02/18/15) Dental caries (Acute 06/22/15) Medical History Chronic bilateral low back pain without sciatica (06/07/17) Diet-controlled diabetes mellitus Uterine leiomyoma (12/20/10) Surgical History section X 2 History of section Family History Mother Personal history of malignant neoplasm Multiple myeloma Father Essential hypertension Heart disease Hyperlipidemia Sister Diabetes Personal history of malignant neoplasm Heart disease Hyperlipidemia Sister Essential hypertension Diabetes Personal history of malignant neoplasm Ovarian Heart disease Mental disorder Sister Diabetes Personal history of malignant neoplasm Adrenal carcinoma(?) Hyperlipidemia Sister Essential hypertension Diabetes Heart disease Hyperlipidemia Brother No problems noted. Brother Abnormal thyroid exam Grandmother Stroke Grandfather Heart disease Grandfather Essential hypertension Heart disease Grandmother No problems noted. Son Sleep trouble Daughter No problems noted. Daughter No problems noted. Social History Smoking/Tobacco Use Status: Never Smoking risk assessment performed?: Yes Alcohol Intake: current Alcohol Intake frequency: holidays/special occasions only Drug use: Never Substance use type: does not use Caregiver/Support person: No Household members: none Housing: apartment Communication Needs: Blind Education Level: other Details: LEGALLY BLIND Do you need help understanding health information?: Never Pets and animals: No Sexually active: No Do you think of yourself as: straight/heterosexual Current gender identity: female What is your relationship status?: How often do you talk on the phone with friends or family?: three or more times per week Do you belong to any clubs or organized social groups?: no Panel score (0-1 are the most socially isolated patients): 1 Dora/Religious: None Seatbelt use: always 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 Pleasant, well groomed, interactive. HEAD: Normocephalic, atraumatic ENT: Mucous membranes moist, oropharynx unremarkable, External ear exam unremarkable EYES: PERRL, EOMI NECK: Full ROM, no FINN, no menigismus CHEST/RESP: No respiratory distress EXT: Full ROM, right lateral calf with bleeding varicosity that is punctate. Neuro: Grossly normal neurologic exam, conversant, interactive. Psych: Speech fluent, thoughts congruent, affect normal Course Vital Signs Vital signs: Vital Signs Temperature 36.4 C L 07/10/21 13:38 Pulse 115 H 07/10/21 13:38 Respiratory Rate 18 07/10/21 13:38 Blood Pressure 154/77 H 07/10/21 13:38 Pulse Oximetry 97 07/10/21 13:38 Temperature 36.4 C L 07/10/21 13:38 Temperature Source Temporal Artery Scan 07/10/21 13:38 Pulse 115 H 07/10/21 13:38 Respiratory Rate 18 07/10/21 13:38 Respiratory Effort Non-Labored 07/10/21 13:42 Blood Pressure 154/77 H 07/10/21 13:38 Blood Pressure Position Sitting 07/10/21 13:38 Pulse Oximetry 97 07/10/21 13:38 Oxygen Delivery Method Room Air 07/10/21 13:38 Oxygen Flow Rate 0 07/10/21 13:38
== END 2021-07-10 14:26 | disposition home or self-care (01) ==
LOC: ER 14:31
PROVIDERS: Emergency Provider Emergency Medicine; PCP Family Medicine
DX: I83.891 Varicose veins of right lower extremity with other complications (principal)
CPT/HCPCS: 99283

== ENCOUNTER 2021-09-09 10:55 | Outpatient (CLI) | payer MEDICARE, MEDICAID, SELFPAY ==
--- NOTE | 2021-09-09 10:45 | RT.EKG_ITS ---
APPROVED REPORT Exam: Resting ECG Reason for Exam: chest pain Patient Location: O HR:83 bpm ECG Measurements Heart Rate 83 AXIS ID 152 P 51 QRSd 85 QRS 9 QT 370 T 67 QTc 434 Conclusion Sinus rhythm...normal P axis, V-rate 60- 99 Normal Electrocardiogram
== END 2021-09-09 10:56 | disposition home or self-care (01) ==
LOC: DI.CM 10:57
PROVIDERS: Visit Provider Family Medicine
DX: I87.2 Venous insufficiency (chronic) (peripheral) (principal); R07.9 Chest pain, unspecified
CPT/HCPCS: 93010

== ENCOUNTER → 2021-09-09 11:59 | Outpatient (CLI) | payer MEDICARE, MEDICAID, SELFPAY ==
--- NOTE | 2021-09-09 11:00 | DI.US_ITS ---
Exam(s) US LOWER EXTREMITY VENOUS LT EXAM: US LOWER EXTREMITY VENOUS LT CLINICAL HISTORY: left leg swelling, recent injury,? dvt. TECHNIQUE: Lower extremity venous ultrasound performed using grayscale, color-flow, and spectral Do ppler analysis. COMPARISON: No exams were available for comparison FINDINGS: The common femoral, femoral and popliteal veins demonstrate normal compressibility, augmentation, and color Doppler. The posterior tibial veins are patent. No saphenous vein thrombosis or other superfi cial venous thrombosis is seen. No hematoma or Mays's cyst is seen. Lower leg edema. IMPRESSION: Lower leg edema. No evidence of DVT. DATA REPOSITORY:
== END ==
PROVIDERS: Visit Provider Family Medicine
DX: S89.92XA Unspecified injury of left lower leg, initial encounter (principal); R60.0 Localized edema; X58.XXXA Exposure to other specified factors, initial encounter
CPT/HCPCS: 93971

== ENCOUNTER 2021-10-01 07:36 | Outpatient (REF) | payer MEDICARE, MEDICAID, SELFPAY | END 2021-10-01 07:37 | disposition home or self-care (01) | LOC: LBN 07:36 | PROVIDERS: Visit Provider Nurse Practitioner Family | DX: M54.50 Low back pain, unspecified (principal) | CPT/HCPCS: 87086 ==

== ENCOUNTER 2021-10-05 10:08 | Outpatient (REF) | payer MEDICARE, MEDICAID, SELFPAY ==
[2021-10-07 15:23] LABS: COVID-19 RT-PCR UVMMC Result Negative (Negative)
== END 2021-10-05 10:09 | disposition home or self-care (01) ==
LOC: NCHCN 10:08
PROVIDERS: Visit Provider Physician Assistant Medical
DX: Z20.822 Contact with and (suspected) exposure to COVID-19 (principal)
CPT/HCPCS: U0003

== ENCOUNTER 2021-10-29 10:04 | Emergency (ER) | payer MEDICARE, MEDICAID, SELFPAY ==
[2021-10-29] VITALS (13 sets, daily range): BP systolic 142–154; BP diastolic 76–86; PULSE 85–97; RESP 14–23; TEMP 36.8; O2SAT 90–100
--- NOTE | 2021-10-29 10:15 | RT.EKG_ITS ---
APPROVED REPORT Exam: Resting ECG Reason for Exam: chest pain Patient Location: E HR:88 bpm ECG Measurements Heart Rate 88 AXIS WV 164 P 44 QRSd 85 QRS 6 QT 365 T 54 QTc 443 Conclusion Sinus rhythm...normal P axis, V-rate 60- 99
--- NOTE | 2021-10-29 10:15 | DI.RAD_ITS ---
Exam(s) XR HIP LT COMPLETE AP PELVIS EXAM: XR HIP LT COMPLETE AP PELVIS CLINICAL HISTORY: Lateral L hip pain. TECHNIQUE: 2D digital imaging was performed. COMPARISON: No exams were available for comparison FINDINGS: Two views No evidence of pelvic nor hip fracture. Additional lateral view of the left hip reveals no fracture. No osseous lesions. Calcific density adjacent to the left ischial tuberosity most probably is relate d to prior hamstrings injury at this level. IMPRESSION: DATA REPOSITORY: RADIATION DOSE DELIVERED:
--- NOTE | 2021-10-29 10:15 | DI.RAD_ITS ---
Exam(s) XR CHEST 2V PA LATERAL EXAM: XR CHEST 2V PA LATERAL CLINICAL HISTORY: [id number] cough, chest pain. TECHNIQUE: 2D digital imaging was performed. COMPARISON: CR XR CHEST 2V PA LATERAL from 11/21/2017 FINDINGS: 2 views: Heart size is normal. The mediastinum is not widened. Lungs are clear. No infiltrates nor pleural effusions. IMPRESSION: No acute pulmonary findings. DATA REPOSITORY: RADIATION DOSE DELIVERED:
--- NOTE | 2021-10-29 10:29 | ED.GENADUL_ITS ---
Discharge Plan Disposition Patient Disposition: HOME Condition: Improving Discharge Details Clinical Impression: Bursitis of left hip Primary Care Provider: Celia Roger ED Provider: Damian Perez Home Meds and New Rx's Prescriptions: New methocarbamol 500 mg tablet 500 mg PO Q6H PRN (Reason: pain) Qty: 14 0RF Continued rosuvastatin 10 mg tablet 10 mg PO DAILY Qty: 90 3RF triamcinolone acetonide 0.1 % ointment 1 applic topical BID Qty: 80 1RF Rx Instructions: to affected area prn polyethylene glycol 3350 [Miralax] 17 gram/dose powder 17 g PO DAILY PRN (Reason: constipation) Qty: 238 11RF aspirin [Aspirin Low-Strength] 81 MG tablet,chewable 1 - 2 tab PO DAILY PRN Label Comments: 06/07/17 Taking one tab daily. LR multivitamin [Daily-Lorin] 1 EACH tablet 1 ea PO DAILY ibuprofen 200 mg capsule 200 mg PO Q6H PRN doxycycline hyclate 100 mg capsule 100 mg PO BID Qty: 10 0RF meclizine 25 mg tablet 25 mg PO TID PRNQty: 30 0RF Discharge Instructions Additional Instructions: May use ibuprofen 600 mg twice daily. May use the provided prescription of methocarbamol as needed for ongoing muscular pain. Please see enclosed physical therapy referral. Resume your normal medications. May apply ice and/or heat to left hip to reduce discomfort. Return for any acute concern. Stand Alone Forms: Physical Therapy Referral Medical Decision Making This is a 66-year-old female who presents via EMS. She complains of atraumatic left hip pain that began this morning while making breakfast. Hurts to walk on it but she has been able to ambulate. She denies fall or injury. Patient states she has been recovering from a sinusitis and is to begin a course of antibiotic prescribed by her primary care physician. She states yesterday she had some epigastric burning pain that was somewhat relieved with Tums at home. Patient arrives afebrile and well-appearing. She has reproducible left lateral hip pain. She has mild epigastric tenderness on exam as well. Differential diagnosis includes bursitis, myalgia, arthritis. Considered GERD and must exclude atypical cardiac presentation as one of the potential etiologies of her epigastric pain. Patient had IV access established, screening labs, EKG, chest x-ray and hip radiograph performed. Chemistries reveal slightly low sodium of 133, glucose of 203, otherwise reassuring, LFTs unremarkable. CBC within normal limits. Troponin is negative. X-ray left hip without acute findings. Chest x-ray unremarkable. Patient improved with ketorolac. She will begin NSAID daily. I will prescribe physical therapy for left hip bursitis. She is offered a prescription of methocarbamol mall which she may trial as needed. She is stable and improved, appropriate for discharge to home . HPI General Mode of arrival: EMS . Date/Time Provider Initiated Documentation: 10/29/21 11:19 . Limitations to Documentation: no limitations . Information obtained by: patient and EMS . History of Present Illness 66 year old F presents to the emergency department with the chief complaint of Left hip pain. Epigastric and chest pain yesterday, described as moderate, Quality is described as dull, and is localized to the left and lower extremity. Patient reports no radiation. Patient started experiencing this hour(s) and it has been constant. Rest improves symptom(s), Movement worsens symptoms and Other factors that worsen symptoms (Weightbearing) . Patient notes cough and other (epigastric pain yesterday); denies fever/chills and shortness of breath. Patient did receive the following treatments prior to arrival, none Related Data Home Medications Medication Instructions Recorded Confirmed aspirin 81 mg chewable tablet 1 - 2 tab PO DAILY PRN 08/07/12 10/29/21 (Aspirin Low-Strength) multivitamin (Daily-Lorin tablet) 1 ea PO DAILY 07/05/17 10/29/21 ibuprofen 200 mg capsule 200 mg PO Q6H PRN 01/05/20 10/29/21 meclizine 25 mg tablet 25 mg PO TID PRN #30 tabs 11/21/20 10/29/21 polyethylene glycol 3350 17 17 g PO DAILY PRN constipation 08/03/21 10/29/21 gram/dose oral powder (Miralax) #238 grams rosuvastatin 10 mg tablet 10 mg PO DAILY #90 tabs 08/03/21 10/29/21 triamcinolone acetonide 0.1 % 1 applic topical BID #80 grams 08/03/21 10/29/21 topical ointment doxycycline hyclate 100 mg capsule 100 mg PO BID #10 caps 09/06/22 09/10/22 methocarbamol 500 mg tablet 500 mg PO Q6H PRN pain #14 tabs 10/29/21 Previous Rx's Medication Instructions Recorded meclizine 25 mg tablet 25 mg PO TID PRN #30 tabs 11/21/20 polyethylene glycol 3350 17 17 g PO DAILY PRN constipation 08/03/21 gram/dose oral powder (Miralax) #238 grams rosuvastatin 10 mg tablet 10 mg PO DAILY #90 tabs 08/03/21 triamcinolone acetonide 0.1 % 1 applic topical BID #80 grams 08/03/21 topical ointment doxycycline hyclate 100 mg capsule 100 mg PO BID #10 caps 10/25/21 methocarbamol 500 mg tablet 500 mg PO Q6H PRN pain #14 tabs 10/29/21 Allergies Allergy/AdvReac Type Severity Reaction Status Date / Time lidocaine Allergy Intermediate CHEST PAINS Verified 10/29/21 11:05 amoxicillin trihydrate Allergy Mild Hives, per Verified 10/29/21 11:05 [From Trimox] pt erythromycin base AdvReac Intermediate HEART RACES Verified 10/29/21 11:05 levofloxacin AdvReac Mild Other (See Verified 10/29/21 11:05 Comment) mepivacaine AdvReac Unknown RAPID Verified 10/29/21 11:05 HEART RATE General Stated Complaint: GenMedical UMU: 3 Review of Systems Narrative: 8 systems were reviewed and otherwise neg PFSH All Active Problems (Updated 10/29/21 @ 12:25 by Damian Perez MD) Bursitis of left hip (Acute) Toe pain, left (Acute) Visual loss (Acute) legally blind both eyes, very limited vision Retinitis Pigmentosa Constipation (Chronic) Obstructive sleep apnea (Chronic) CPAP- doesn't use this- could not tolerate it Type 2 diabetes mellitus without complication, without long-term current use of insulin (Acute 09/11/17) Peripheral venous insufficiency (Acute) Obesity (Acute) 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) Hyperlipidemia (Acute) Generalized anxiety disorder (Acute 02/18/15) Dental caries (Acute 06/22/15) Medical History Cervical paraspinal muscle spasm Chronic bilateral low back pain without sciatica (06/07/17) COVID-19 02/2021 tx with antibody infusion Uterine leiomyoma (12/20/10) Surgical History History of section Family History Mother Personal history of malignant neoplasm Multiple myeloma Father Essential hypertension Heart disease Hyperlipidemia Sister Diabetes Personal history of malignant neoplasm Heart disease Hyperlipidemia Sister Essential hypertension Diabetes Personal history of malignant neoplasm Ovarian Heart disease Mental disorder Sister Diabetes Personal history of malignant neoplasm Adrenal carcinoma(?) Hyperlipidemia Sister Essential hypertension Diabetes Heart disease Hyperlipidemia Brother No problems noted. Brother Abnormal thyroid exam Grandmother Stroke Grandfather Heart disease Grandfather Essential hypertension Heart disease Grandmother No problems noted. Son Sleep trouble Daughter No problems noted. Daughter No problems noted. Social History Smoking/Tobacco Use Status: Never Second Hand Exposure: Yes Smoking risk assessment performed?: Yes Alcohol Intake: current Alcohol Intake frequency: holidays/special occasions only Drug use: Never Substance use type: does not use Caregiver/Support person: No Household members: none Housing: apartment Communication Needs: Blind Education Level: other Details: LEGALLY BLIND Do you need help understanding health information?: Never Pets and animals: No Sexually active: No Do you think of yourself as: straight/heterosexual Current gender identity: female What is your relationship status?: How often do you talk on the phone with friends or family?: three or more times per week Do you belong to any clubs or organized social groups?: no Panel score (0-1 are the most socially isolated patients): 1 Dora/Hindu: None Seatbelt use: always 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 Pleasant, well groomed, interactive. HEAD: Normocephalic, atraumatic ENT: Mucous membranes moist, oropharynx unremarkable, External ear exam unremarkable EYES: PERRL, EOMI NECK: Full ROM, no FINN, no menigismus CHEST/RESP: Nontender, clear to auscultation bilateral, no wheeze/rhonchi/rales CARDIOVASCULAR: RRR, no murmur, rub fabiola. 2+ Rad pulse bilateral ABDOMEN: Soft, minimal epigastric tenderness to palpation without rebound or guarding, no mass. +Bowel sounds EXT: Full ROM, no edema, no rash. Pain with palpation left lateral hip. No pain with internal and external rotation. There is some ecchymosis of the lateral thigh Neuro: Grossly normal neurologic exam, conversant, interactive. Psych: Speech fluent, thoughts congruent, affect normal Course Vital Signs Vital signs: Vital Signs Temperature 36.8 C 10/29/21 10:18 Pulse 90 10/29/21 10:18 Respiratory Rate 17 10/29/21 10:18 Blood Pressure 142/78 H 10/29/21 10:18 Pulse Oximetry 98 10/29/21 10:18 Temperature 36.8 C 10/29/21 10:18 Temperature Source Temporal Artery Scan 10/29/21 10:18 Pulse 90 10/29/21 10:18 Respiratory Rate 17 10/29/21 10:18 Blood Pressure 142/78 H 10/29/21 10:18 Blood Pressure Position Supine 10/29/21 10:18 Pulse Oximetry 98 10/29/21 10:18 Oxygen Delivery Method Room Air 10/29/21 10:18 Oxygen Flow Rate 0 10/29/21 10:18
[2021-10-29 10:57] LABS: Abs Immature Grans 0.03 10^3/uL (0.0-0.06); Absolute Basophil Count 0.04 10^3/uL (0.0-0.2); Absolute Eosinophil Count 0.01 10^3/uL (0.0-0.7); Absolute Lymphocyte Count 1.04 10^3/uL (1.2-3.4); Basophils % 0.4; Eosinophils % 0.1; Immature Grans % 0.3; Lymphocytes % 11.7; MCH 26.4 pg (27.0-33.0); MCHC 32.6 % (32.0-36.0); MCV 81 fL (80-95); MPV 10.4 fL (8.0-11.0); Monocytes % 4.5; Platelet Count 263 10^3/uL (130-400); RDW 13.6 % (11.7-14.6); WBC 8.92 10^3/uL (4.4-10.8)
[2021-10-29 11:19] LABS: ALT 30 U/L (14-59); AST 19 U/L (15-37); Albumin 3.8 g/dL (3.4-5.0); Alkaline Phosphatase 94 U/L (46-116); Anion Gap 5.6 mmol/L (3-11); BUN 10 mg/dL (7-18); Bilirubin, Total 0.5 mg/dL (0.2-1.0); CO2 29.4 mmol/L (21.0-32.0); CREATININE 0.7 mg/dL (0.55-1.02); Calcium 9.2 mg/dL (8.5-10.1); Chloride 98 mmol/L (98-107); Estimated GFR 96.52 (mL/min/1.73m2); Glucose 203 mg/dL (74-106); Magnesium 1.9 mg/dL (1.8-2.4); Potassium 3.6 mmol/L (3.5-5.1); Sodium 133 mmol/L (136-145); Total Protein 7.8 g/dL (6.4-8.2); Troponin I < 50 ng/L (<or=60)
[2021-10-29] MEDS: Ketorolac 15 MG/ML VIAL IVP (11:27)
[2021-10-29] MEDS: Normal Saline Flush 10 ML SYR IVP (11:27)
--- NOTE | 2021-10-29 11:38 | DI.VRAD_ITS ---
PROCEDURE INFORMATION: Exam: XR Chest Exam date and time: 10/29/2021 11:14 AM Age: 66 years old Clinical indication: Pain; Cough; Other: Cp TECHNIQUE: Imaging protocol: Radiologic exam of the chest. Views: 2 views. COMPARISON: CR XR CHEST 2V PA LATERAL 11/21/2017 10:21 AM FINDINGS: Lungs: Unremarkable. No consolidation. Pleural spaces: Unremarkable. No pleural effusion. No pneumothorax. Heart/Mediastinum: Unremarkable. No cardiomegaly. Bones/joints: Unremarkable. IMPRESSION: No acute findings. Dictated and Authenticated by: Camden Bae MD. Ordering:RIGOBERTO Salgado MD
--- NOTE | 2021-10-29 11:39 | DI.VRAD_ITS ---
PROCEDURE INFORMATION: Exam: XR Left Hip Exam date and time: 10/29/2021 11:20 AM Age: 66 years old Clinical indication: Left hip; Patient HX: Lateral lt hip pain TECHNIQUE: Imaging protocol: Radiologic exam of the Left hip. Views: 2 or 3 views hip with pelvis when performed. COMPARISON: No relevant prior studies available. FINDINGS: Bones/joints: Unremarkable. No acute fracture. Soft tissues: Unremarkable. IMPRESSION: No acute findings. Dictated and Authenticated by: Camden Bae MD. Ordering:RIGOBERTO Salgado MD
== END 2021-10-29 13:43 | disposition home or self-care (01) ==
PROVIDERS: Emergency Provider Emergency Medicine
DX: M70.72 Other bursitis of hip, left hip (principal); R10.13 Epigastric pain; E87.1 Hypo-osmolality and hyponatremia
CPT/HCPCS: 36415; 80053; 93005; 96374; 99284; 71046; 73502; 83735; 84484; 85025; 93010; J1885

== ENCOUNTER 2021-12-06 03:36 | Outpatient (CLI) | payer MEDICARE, MEDICAID, SELFPAY ==
[2021-12-06 08:49] LABS: Hemoglobin A1C 6.8 % (<5.7)
[2021-12-06 09:36] LABS: ALT 34 U/L (14-59); Anion Gap 7.4 mmol/L (3-11); BUN 12 mg/dL (7-18); CO2 29.6 mmol/L (21.0-32.0); CREATININE 0.7 mg/dL (0.55-1.02); Calcium 9.6 mg/dL (8.5-10.1); Calculated LDL 119 mg/dL (<100); Chloride 101 mmol/L (98-107); Cholesterol 213 mg/dL (<200); Estimated GFR 96.52 (mL/min/1.73m2); Glucose 167 mg/dL (74-106); HDL Cholesterol 83 mg/dL (40-60); Potassium 3.9 mmol/L (3.5-5.1); Sodium 138 mmol/L (136-145); TSH 4.44 uIU/mL (0.36-3.74); Triglyceride 58 mg/dL (<150)
[2021-12-06 09:56] LABS: FREE T4 0.92 ng/dL (0.76-1.46)
== END 2021-12-06 03:37 | disposition home or self-care (01) ==
LOC: LBO 03:36
PROVIDERS: Visit Provider Family Medicine
DX: E11.9 Type 2 diabetes mellitus without complications (principal); R79.89 Other specified abnormal findings of blood chemistry
CPT/HCPCS: 36415; 80048; 80061; 83036; 84439; 84443; 84460

== ENCOUNTER 2021-12-28 14:16 | Outpatient (CLI) | payer MEDICARE, MEDICAID, SELFPAY ==
--- NOTE | 2021-12-28 14:15 | RT.EKG_ITS ---
APPROVED REPORT Exam: Resting ECG Reason for Exam: chest pain Patient Location: O HR:90 bpm ECG Measurements Heart Rate 90 AXIS TN 148 P 51 QRSd 83 QRS 17 QT 358 T 71 QTc 438 Conclusion Sinus rhythm...normal P axis, V-rate 50- 99 Probable left atrial enlargement...P >50mS, <-0.10mV V1 Otherwise normal
== END 2021-12-28 14:17 | disposition home or self-care (01) ==
LOC: DI.CM 14:17
PROVIDERS: PCP Nurse Practitioner Family; Visit Provider Nurse Practitioner Family
DX: R07.9 Chest pain, unspecified (principal)
CPT/HCPCS: 93010

== ENCOUNTER 2022-01-03 01:29 | Emergency (ER) | payer MEDICARE, MEDICAID, SELFPAY ==
[2022-01-03 01:29] VITALS: BP 168/92; PULSE 57; RESP 16; TEMP 36.2; O2SAT 100
--- NOTE | 2022-01-03 01:30 | DI.CT_ITS ---
Exam(s) CT HEAD CERVICAL SPINE WO EXAM: CT HEAD CERVICAL SPINE WO CLINICAL HISTORY: right sided neck pain after fall. TECHNIQUE: Imaging Protocol: Axial computed tomography images with coronal and sagittal reformatted images were created and reviewed COMPARISON: CT CT BRAIN NECK CTA from 11/21/2020 FINDINGS: BRAIN: There are no skull fractures nor fluid in the visualized paranasal sinuses. There is no evidence of intracranial hemorrhage, mass effect, or shift of midline structures. There are no extra-axial fluid collections. The ventricles are not enlarged or shifted and there is no blo od within the ventricular system nor within the basal cisterns. CERVICAL SPINE: There is no evidence of fracture nor listhesis. No significant prevertebral soft tissue swelling. Chronic disc space narrowing C5-6. There is no significant facet joint malalignment. No significant osseous lesions evident. IMPRESSION: No acute intracranial findings on this noninfused CT scan of the brain. No evidence of cervical spine fracture, malalignment, nor acute compromise of the cervical spinal can al. RADIATION DOSE DELIVERED: 979.52mGy.cm Total DLP DATA REPOSITORY: All CT scans at this facility are submitted to the National Radiology Data Registry (NRDR) Dose Index Registry (DIR) with the [employer] (ACR). RADIATION OPTIMIZATION: All CT scans at this facility use at least one of these dose optimization te chniques: automated exposure control; mA and/or kV adjustment per patient size (includes targeted exa ms where dose is matched to clinical indication); or iterative reconstruction.
[2022-01-03] MEDS: Diclofenac 1% Gel 100 GM TUBE TP (01:45)
--- NOTE | 2022-01-03 02:16 | ED.GENADUL_ITS ---
Discharge Plan Disposition Patient Disposition: HOME Condition: Good Discharge Details Chief Complaint: Nk/Back Pain Clinical Impression: Neck pain on right side Primary Care Provider: Jose Antonio Ivey ED Provider: Moise Christensen Home Meds and New Rx's Prescriptions: No Action rosuvastatin 10 mg tablet 10 mg PO DAILY Qty: 90 3RF triamcinolone acetonide 0.1 % ointment 1 applic topical BID Qty: 80 1RF Rx Instructions: to affected area prn polyethylene glycol 3350 [Miralax] 17 gram/dose powder 17 g PO DAILY PRN (Reason: constipation) Qty: 238 11RF triamcinolone acetonide 0.1 % ointment 1 applic topical DAILY Qty: 80 0RF aspirin [Aspirin Low-Strength] 81 MG tablet,chewable 1 - 2 tab PO DAILY PRN Label Comments: 06/07/17 Taking one tab daily. LR multivitamin [Daily-Lorin] 1 EACH tablet 1 ea PO DAILY ibuprofen 200 mg capsule 200 mg PO Q6H PRN meclizine 25 mg tablet 25 mg PO TID PRNQty: 30 0RF Discharge Instructions Instructions: Neck Pain (ED) Additional Instructions: At this time your CT scan shows no evidence of fracture or other significant abnormality. Please apply the Voltaren gel 2-3 times per day to the sore area. Please use a heating pad as often as you can to help with the muscle spasms. Take Tylenol and Motrin as needed for pain. If you notice any worsening of your symptoms, or any new symptoms such as vomiting, diarrhea, fever, chills, shortness of breath, chest pain, numbness, weakness, or fainting , please return immediately to the emergency department for reevaluation. Please follow up with your primary care provider as soon as possible for reassessment and reevaluation. As always, it was a pleasure participating in your medical care today. Referrals: Jose Antonio Ivey, [employer]ER [Primary Care Provider] - Medical Decision Making 66-year-old female with a past medical history of type 2 diabetes, retinitis pigmentosa, neurodermatitis, high cholesterol, obstructive sleep apnea,?presents today for evaluation of right-sided neck pain. Patient states that for the last week she has had right-sided neck pain. 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 Unfortunately 1 week ago while at [facility] she states that she bumped her head against the wall and since then she has had mild pain in her right neck. Pain is made worse with movement. It is improved with Tylenol which she has been taking. She denies any new numbness tingling or weakness. She denies loss of consciousness. She denies any other complaints at this time. No other modifying factors. Exam demonstrates well-appearing female, neck is side bent to the right which is her chronic baseline. Mild hypertrophy of the right sternocleidomastoid. But no evidence of spasm or focal severe torticollis. No midline spinal tenderness. Mild right paraspinal tenderness. No weakness of the upper extremities to suggest central cord syndrome. No signs of trauma otherwise. Remainder of her exam is unremarkable. Differential is highest for muscle spasm versus mild cervical spine fracture which is notably less likely. CT scan shows no evidence of acute process. No signs of fractures, no other abnormality. Patient stable for discharge. Patient is not a candidate for Lidoderm patch secondary to her allergies. We will recommend continued NSAIDs as well as Voltaren gel. Which we have given here. Patient refuses muscle relaxants. I have extensively reviewed the treatment plan and discharge instructions with the patient. I have addressed all patient concerns at this time. The patient was made aware of what symptoms to monitor for that would warrant a return to the emergency department. Discussed the plan with the patient, they demonstrate verbal understanding and agreement with our assessment and plan at this time. The documentation in this chart was dictated using [email or web address] dictation software. Please excuse any dictation errors. FINDINGS: Brain: No significant volume loss within the brain parenchyma. No intracranial hemorrhage. No midline shift. No loss of jaime-white differentiation to suggest an acute cortical infarct. Cerebral ventricles: No hydrocephalus. Paranasal sinuses: The imaged paranasal sinuses are well aerated. Mastoid air cells: The mastoid air cells are well aerated. Orbital cavities: The intraorbital contents are normal appearance. Bones/joints: The skull and skull base are normal appearance. Subtle deformity within the bilateral nasal bones, unchanged. Soft tissues: Unremarkable. IMPRESSION: No acute intracranial abnormality. No significant change from the prior study FINDINGS: Bones/joints: No evidence for an acute cervical spine fracture. Diffuse cervical spondylosis, most pronounced at C5-C6 where varying degrees of moderate to severe neural foraminal stenosis and mild spinal canal stenosis are present. Lungs: Lung apices are well aerated. Soft tissues: Unremarkable. IMPRESSION: No evidence for an acute cervical spine fracture. Thank you for allowing us to participate in the care of your patient. Dictated and Authenticated by: Victoria Alberts MD 01/03/2022 2:16 AM Eastern Time ([place] & [place]) HPI General Date/Time Provider Initiated Documentation: 01/03/22 01:59 . HPI Narrative: 66-year-old female with a past medical history of type 2 diabetes, retinitis pigmentosa, neurodermatitis, high cholesterol, obstructive sleep apnea,?presents today for evaluation of right-sided neck pain. Patient states that for the last week she has had right-sided neck pain. 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 Unfortunately 1 week ago while at [facility] she states that she bumped her head against the wall and since then she has had mild pain in her right neck. Pain is made worse with movement. It is improved with Tylenol which she has been taking. She denies any new numbness tingling or weakness. She denies loss of consciousness. She denies any other complaints at this time. No other modifying factors. Related Data Home Medications Medication Instructions Recorded Confirmed aspirin 81 mg chewable tablet 1 - 2 tab PO DAILY PRN 08/07/12 01/03/22 (Aspirin Low-Strength) multivitamin (Daily-Lorin tablet) 1 ea PO DAILY 07/05/17 01/03/22 ibuprofen 200 mg capsule 200 mg PO Q6H PRN 01/05/20 01/03/22 meclizine 25 mg tablet 25 mg PO TID PRN #30 tabs 11/21/20 01/03/22 polyethylene glycol 3350 17 17 g PO DAILY PRN constipation 08/03/21 01/03/22 gram/dose oral powder (Miralax) #238 grams rosuvastatin 10 mg tablet 10 mg PO DAILY #90 tabs 08/03/21 01/03/22 triamcinolone acetonide 0.1 % 1 applic topical BID #80 grams 08/03/21 01/03/22 topical ointment triamcinolone acetonide 0.1 % 1 applic topical DAILY #80 grams 12/09/21 01/03/22 topical ointment Previous Rx's Medication Instructions Recorded meclizine 25 mg tablet 25 mg PO TID PRN #30 tabs 11/21/20 polyethylene glycol 3350 17 17 g PO DAILY PRN constipation 08/03/21 gram/dose oral powder (Miralax) #238 grams rosuvastatin 10 mg tablet 10 mg PO DAILY #90 tabs 08/03/21 triamcinolone acetonide 0.1 % 1 applic topical BID #80 grams 08/03/21 topical ointment triamcinolone acetonide 0.1 % 1 applic topical DAILY #80 grams 12/09/21 topical ointment Allergies Allergy/AdvReac Type Severity Reaction Status Date / Time lidocaine Allergy Intermediate CHEST PAINS Verified 01/03/22 01:35 amoxicillin trihydrate Allergy Mild Hives, per Verified 01/03/22 01:35 [From Trimox] pt erythromycin base AdvReac Intermediate HEART RACES Verified 01/03/22 01:35 levofloxacin AdvReac Mild Other (See Verified 01/03/22 01:35 Comment) mepivacaine AdvReac Unknown RAPID Verified 01/03/22 01:35 HEART RATE General Stated Complaint: Nk/Back Pain UMU: 3 Review of Systems All systems reviewed & are unremarkable except as noted in HPI and below PFSH All Active Problems (Updated 01/03/22 @ 02:22 by Moise Christensen DO) Neck pain on right side (Acute) Chest discomfort (Acute) Low back pain (Acute) Pain, foot (Acute) Nail dystrophy (Acute) Toe pain, left (Acute) Visual loss (Acute) legally blind both eyes, very limited vision Retinitis Pigmentosa Constipation (Chronic) Obstructive sleep apnea (Chronic) CPAP- doesn't use this- could not tolerate it Type 2 diabetes mellitus without complication, without long-term current use of insulin (Acute 09/11/17) Peripheral venous insufficiency (Acute) Obesity (Acute) 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) Hyperlipidemia (Acute) Generalized anxiety disorder (Acute 02/18/15) Dental caries (Acute 06/22/15) Medical History Cervical paraspinal muscle spasm Chronic bilateral low back pain without sciatica (06/07/17) COVID-19 02/2021 tx with antibody infusion Uterine leiomyoma (12/20/10) Surgical History History of section Family History Mother Personal history of malignant neoplasm Multiple myeloma Father Essential hypertension Heart disease Hyperlipidemia Sister Diabetes Personal history of malignant neoplasm Heart disease Hyperlipidemia Sister Essential hypertension Diabetes Personal history of malignant neoplasm Ovarian Heart disease Mental disorder Sister Diabetes Personal history of malignant neoplasm Adrenal carcinoma(?) Hyperlipidemia Sister Essential hypertension Diabetes Heart disease Hyperlipidemia Brother No problems noted. Brother Abnormal thyroid exam Grandmother Stroke Grandfather Heart disease Grandfather Essential hypertension Heart disease Grandmother No problems noted. Son Sleep trouble Daughter No problems noted. Daughter No problems noted. Social History Smoking/Tobacco Use Status: Never Second Hand Exposure: Yes Smoking risk assessment performed?: Yes Alcohol Intake: current Alcohol Intake frequency: holidays/special occasions only Drug use: Never Substance use type: does not use Caregiver/Support person: No Household members: none Housing: apartment Communication Needs: Blind Education Level: other Details: LEGALLY BLIND Do you need help understanding health information?: Never Pets and animals: No Sexually active: No Do you think of yourself as: straight/heterosexual Current gender identity: female What is your relationship status?: How often do you talk on the phone with friends or family?: three or more times per week Do you belong to any clubs or organized social groups?: no Panel score (0-1 are the most socially isolated patients): 1 Dora/Confucianist: None Seatbelt use: always Drive intox or ride w/intox dedicated driver: No Do you feel safe at home: Yes Do you feel safe in your relationship?: Yes Exam Narrative Exam Narrative: 1.Const: Well-nourished, Well-developed, appearing stated age 2.Eyes: PERRL, no conjunctival injection, and symmetrical lids. 3.ENT: Atraumatic external nose and ears. Moist MM. Neck: Symmetric, trachea midline, No thyromegaly. 4.CVS: +S1/S2, No murmurs or gallops. Peripheral pulses 2+ and equal in all extremities. Brisk capillary refill in all extremities. 5.RESP: Unlabored respiratory effort. Clear to auscultation bilaterally. No wheezes rales or rhonchi 6.GI: Soft, Nontender/Nondistended, No hepatosplenomegaly. No guarding or rebound. 7.MSK: Normocephalic/Atraumatic, Extremities w/o deformity or ttp No cyanosis or clubbing, Normal movement of all extremities No midline cervical thoracic or lumbar spine tenderness. Patient does have some mild right-sided paraspinal tenderness over the cervical vertebra area. No left-sided tenderness. Mild achiness through side. Good to the left, she is notably side bend to the right at baseline. 8.Skin: Warm, Dry. No rashes or lesions. A few small skin picking lesions are noted on the upper extremities. 9.Neuro: motor pool clerk II-XII grossly intact. Sensation grossly intact, no focal neurologic deficits. 10.Psych: (AAO) x3. Appropriate mood and affect Course Vital Signs Vital signs: Vital Signs Temperature 36.2 C L 01/03/22 01:29 Pulse 57 L 01/03/22 01:29 Respiratory Rate 16 01/03/22 01:29 Blood Pressure 168/92 H 01/03/22 01:29 Pulse Oximetry 100 01/03/22 01:29 Temperature 36.2 C L 01/03/22 01:29 Temperature Source Temporal Artery Scan 01/03/22 01:29 Pulse 57 L 01/03/22 01:29 Respiratory Rate 16 01/03/22 01:29 Respiratory Effort 01/03/22 01:29 Blood Pressure 168/92 H 01/03/22 01:29 Blood Pressure Position Supine 01/03/22 01:29 Pulse Oximetry 100 01/03/22 01:29 Oxygen Delivery Method Room Air 01/03/22 01:29 Oxygen Flow Rate 0 01/03/22 01:29 Pain Level 8 01/03/22 01:29
--- NOTE | 2022-01-03 02:17 | DI.VRAD_ITS ---
PROCEDURE INFORMATION: Exam: CT Head Without Contrast Exam date and time: 01/03/2022 1:58 AM Age: 66 years old Clinical indication: Injury or trauma; Blunt trauma (contusions or hematomas); Consciousness not specified; Injury date: 01/01/22; Injury details: Right sided neck pain after fall TECHNIQUE: Imaging protocol: Computed tomography of the head without contrast. Radiation optimization: All CT scans at this facility use at least one of these dose optimization techniques: automated exposure control; mA and/or kV adjustment per patient size (includes targeted exams where dose is matched to clinical indication); or iterative reconstruction. COMPARISON: CT BRAIN NECK CTA 11/21/2020 7:44 AM FINDINGS: Brain: No significant volume loss within the brain parenchyma. No intracranial hemorrhage. No midline shift. No loss of jaime-white differentiation to suggest an acute cortical infarct. Cerebral ventricles: No hydrocephalus. Paranasal sinuses: The imaged paranasal sinuses are well aerated. Mastoid air cells: The mastoid air cells are well aerated. Orbital cavities: The intraorbital contents are normal appearance. Bones/joints: The skull and skull base are normal appearance. Subtle deformity within the bilateral nasal bones, unchanged. Soft tissues: Unremarkable. IMPRESSION: No acute intracranial abnormality. No significant change from the prior study. PROCEDURE INFORMATION: Exam: CT Cervical Spine Without Contrast Exam date and time: 01/03/2022 1:58 AM Age: 66 years old Clinical indication: Injury or trauma; Blunt trauma (contusions or hematomas); Consciousness not specified; Injury date: 01/01/22; Injury details: Right sided neck pain after fall TECHNIQUE: Imaging protocol: Computed tomography of the cervical spine without contrast. Radiation optimization: All CT scans at this facility use at least one of these dose optimization techniques: automated exposure control; mA and/or kV adjustment per patient size (includes targeted exams where dose is matched to clinical indication); or iterative reconstruction. COMPARISON: CT BRAIN NECK CTA 11/21/2020 7:44 AM FINDINGS: Bones/joints: No evidence for an acute cervical spine fracture. Diffuse cervical spondylosis, most pronounced at C5-C6 where varying degrees of moderate to severe neural foraminal stenosis and mild spinal canal stenosis are present. Lungs: Lung apices are well aerated. Soft tissues: Unremarkable. IMPRESSION: No evidence for an acute cervical spine fracture. Dictated and Authenticated by: Victoria Alberts MD. Ordering:LUIS Phipps MD
[2022-01-03 02:30] VITALS: BP 139/80; PULSE 92; RESP 16; O2SAT 94
[2022-01-03] MEDS: Acetaminophen 500 MG TAB (03:33)
== END 2022-01-03 02:31 | disposition home or self-care (01) ==
PROVIDERS: Emergency Provider Student in an Organized Health Care Education/Training Program; PCP Nurse Practitioner Family
DX: G89.11 Acute pain due to trauma (principal); M54.2 Cervicalgia; M62.89 Other specified disorders of muscle; E11.9 Type 2 diabetes mellitus without complications; E78.00 Pure hypercholesterolemia, unspecified; Z86.16 Personal history of COVID-19; W22.01XA Walked into wall, initial encounter
CPT/HCPCS: 99284; 70450; 72125

== ENCOUNTER 2022-02-24 20:47 | Outpatient (REF) | payer MEDICARE, MEDICAID, SELFPAY ==
[2022-02-24 21:32] LABS: Vitamin B12 680 pg/mL (193-986)
== END 2022-02-24 20:48 | disposition home or self-care (01) ==
LOC: LBN 20:47
PROVIDERS: PCP Nurse Practitioner Family; Visit Provider Nurse Practitioner Family
DX: M79.671 Pain in right foot (principal); E11.9 Type 2 diabetes mellitus without complications; E78.5 Hyperlipidemia, unspecified; R20.0 Anesthesia of skin; R20.2 Paresthesia of skin
CPT/HCPCS: 82607

== ENCOUNTER → 2022-02-28 09:22 | Outpatient (BNVA) | payer MEDICARE, MEDICAID, SELFPAY | PROVIDERS: PCP Nurse Practitioner Family; Referring Provider Nurse Practitioner Family; Visit Provider Psychiatry & Neurology Neurology | DX: G24.3 Spasmodic torticollis (principal); E11.9 Type 2 diabetes mellitus without complications | CPT/HCPCS: 99214 ==

== ENCOUNTER 2022-04-05 08:50 | Outpatient (CLI) | payer MEDICARE, MEDICAID, SELFPAY ==
--- NOTE | 2022-04-05 09:00 | RT.EKG_ITS ---
APPROVED REPORT Exam: Resting ECG Reason for Exam: reports intermittent chest pain Patient Location: O HR:93 bpm ECG Measurements Heart Rate 93 AXIS MI 145 P 56 QRSd 85 QRS 13 QT 353 T 69 QTc 440 Conclusion Sinus rhythm...normal P axis, V-rate 50- 99 Baseline wander in lead(s) V5 Normal Electrocardiogram
== END 2022-04-05 08:51 | disposition home or self-care (01) ==
PROVIDERS: PCP Nurse Practitioner Family; Visit Provider Nurse Practitioner Family
DX: R07.9 Chest pain, unspecified (principal)
CPT/HCPCS: 93010

== ENCOUNTER 2022-04-14 11:08 | Outpatient (CLI) | payer MEDICARE, MEDICAID, SELFPAY ==
[2022-04-14 13:17] LABS: D-Dimer 884 ng/mlFEU (<500)
[2022-04-14 13:37] LABS: ALT 52 U/L (14-59); AST 30 U/L (15-37); Albumin 3.7 g/dL (3.4-5.0); Alkaline Phosphatase 183 U/L (46-116); Anion Gap 9.1 mmol/L (3-11); BUN 17 mg/dL (7-18); Bilirubin, Total 0.3 mg/dL (0.2-1.0); CO2 27.9 mmol/L (21.0-32.0); CREATININE 0.7 mg/dL (0.55-1.02); Calcium 9.2 mg/dL (8.5-10.1); Calculated LDL 120 mg/dL (<100); Chloride 103 mmol/L (98-107); Cholesterol 208 mg/dL (<200); Estimated GFR 96.52 (mL/min/1.73m2); Glucose 114 mg/dL (74-106); HDL Cholesterol 64 mg/dL (40-60); Sodium 140 mmol/L (136-145); Total Protein 7.9 g/dL (6.4-8.2); Triglyceride 123 mg/dL (<150)
== END 2022-04-14 11:09 | disposition home or self-care (01) ==
LOC: LOS 11:08
PROVIDERS: PCP Nurse Practitioner Family; Referring Provider Nurse Practitioner Family; Visit Provider Nurse Practitioner Family
DX: E78.5 Hyperlipidemia, unspecified (principal); M79.89 Other specified soft tissue disorders; R60.0 Localized edema; Z83.2 Family history of diseases of the blood and blood-forming organs and certain disorders involving the immune mechanism
CPT/HCPCS: 36415; 80053; 80061; 85379; 93971

== ENCOUNTER 2022-04-14 14:47 | Outpatient (CLI) | payer MEDICARE, MEDICAID, SELFPAY ==
--- NOTE | 2022-04-14 13:45 | DI.US_ITS ---
Exam(s) US LOWER EXTREMITY VENOUS LT EXAM: US LOWER EXTREMITY VENOUS LT CLINICAL HISTORY: LLE swelling after trauma 2 weeks ago M79.89 SOFT TISSUE DISORDER. TECHNIQUE: Lower extremity venous ultrasound performed using grayscale, color-flow, and spectral Do ppler analysis. COMPARISON: No exams were available for comparison FINDINGS: The common femoral, femoral and popliteal veins demonstrate normal compressibility, augmentation, and color Doppler. The posterior tibial veins are patent. No saphenous vein thrombosis or other superfi cial venous thrombosis is seen. No hematoma or Mays's cyst is seen. Edema is noted in the subcutan eous fat of the lower leg. IMPRESSION: Soft tissue edema. No evidence of DVT. DATA REPOSITORY:
== END 2022-04-14 15:07 ==
LOC: DI 14:47
PROVIDERS: PCP Nurse Practitioner Family; Visit Provider Nurse Practitioner Family
DX: R60.0 Localized edema (principal)
CPT/HCPCS: 93971

== ENCOUNTER 2022-05-04 09:09 | Outpatient (RCR) | payer MEDICARE, MEDICAID, SELFPAY ==
--- NOTE | 2022-05-04 09:15 | HOLTER_ITS ---
APPROVED REPORT Conclusion This is a 48-hour Holter monitor ordered for palpitations Rhythm throughout is sinus with an average heart rate of 69. Minimum was 54, maximum 107 There was 1 isolated premature ventricular contraction A total of 14 isolated atrial premature beats were seen There was no atrial fibrillation, no SVT, no high-grade AV block, no pauses greater than 3 seconds
== END 2022-05-19 23:59 | disposition home or self-care (01) ==
LOC: CARDOPNVT 09:09
PROVIDERS: PCP Nurse Practitioner Family; Visit Provider Nurse Practitioner Family
DX: R00.2 Palpitations (principal); I49.1 Atrial premature depolarization
CPT/HCPCS: 93227; 93225; 93226

== ENCOUNTER 2022-09-16 04:01 | Observation (INO) | payer MEDICARE, MEDICAID, SELFPAY ==
[2022-09-16] VITALS (38 sets, daily range): BP systolic 102–150; BP diastolic 57–118; PULSE 50–96; RESP 0–31; TEMP 36.2–37.4; O2SAT 94–100
--- NOTE | 2022-09-16 03:30 | RT.EKG_ITS ---
APPROVED REPORT Exam: Resting ECG Reason for Exam: chest pain Patient Location: E HR:89 bpm ECG Measurements Heart Rate [address] 171 P 35 QRSd 79 QRS -6 QT 385 T 62 QTc 468 Conclusion Sinus rhythm...normal P axis, V-rate 60- 99 Physician: no stemi
--- NOTE | 2022-09-16 03:48 | ED.GENADUL_ITS ---
Discharge Plan Disposition Patient Disposition: Admit to [facility] Condition: Good Discharge Details Chief Complaint: Chest Pain Clinical Impression: Chest pain Primary Care Provider: Jose Antonio Ivey ED Provider: Moise Christensen Home Meds and New Rx's Prescriptions: No Action rosuvastatin 5 mg tablet 5 mg PO DAILY Qty: 90 0RF triamcinolone acetonide 0.1 % ointment 1 applic topical BID Qty: 80 1RF Rx Instructions: to affected area prn polyethylene glycol 3350 [Miralax] 17 gram/dose powder 17 g PO DAILY PRN (Reason: constipation) Qty: 238 11RF aspirin [Aspirin Low-Strength] 81 MG tablet,chewable 1 - 2 tab PO DAILY PRN Patient Comments: 06/07/17 Taking one tab daily. LR multivitamin [Daily-Lorin] 1 EACH tablet 1 ea PO DAILY ibuprofen 200 mg capsule 200 mg PO Q6H PRN Medical Decision Making 67-year-old female with a past medical history of type 2 diabetes, retinitis pigmentosa, neurodermatitis, high cholesterol, obstructive sleep apnea, who presents today for evaluation of chest pain. Patient states that she has had chest pain for the last 4 days. There is a slight pleuritic component. It was made better whenever she would take aspirin, so she has taken aspirin daily. Unfortunately tonight the pain did not get better with aspirin, additionally she felt that her heart was racing. She denies any recent long trips surgeries procedures or history of blood clots. She denies any significant shortness of breath. No stabbing or tearing sensation. She denies vomiting or diarrhea. No calf tenderness. She does have a history of peripheral varicosities though. Exam demonstrates a well-appearing female, no calf tenderness. Lung sounds clear. No evidence of significant respiratory distress. Differential is broad but includes PE, stable angina, or other abnormality. We will monitor closely evaluate for these etiologies and reassess. EKG stable. 6:46 AM Laboratory work-up is returned normal, CTA is negative for acute process. Troponin normal. We will get a repeat EKG and delta troponin. Patient remains chest pain-free. 7:40 AM Repeat troponin is normal. He EKG stable. I had a long discussion with the patient and discussed outpatient stress testing versus inpatient observation. Patient is very concerned. She does live at home alone, she is blind, she is worried about the chest pain coming back. Understanding this and discussing the risks and benefits including the financial risks and benefits, patient has elected to stay for observation. I do feel this is reasonable given her high cholesterol, her age, her type 2 diabetes and risk factors putting her in the low to moderate risk category. Patient will be For observation for serial troponins and stress testing. Discussed the case with the hospitalist Dr. Martinez. She agrees with the assessment and plan. I have extensively reviewed the treatment plan with the patient. I have addressed all patient concerns at this time. I have also discussed the plan with the admitting physician and they agree with the current assessment and plan and have agreed to assume responsibility for the patient. All parties demonstrate verbal understanding and agreement with our assessment and plan at this time. The documentation in this chart was dictated using [employer] dictation software. Please excuse any dictation errors. FINDINGS: Pulmonary arteries: Mild prominence of the pulmonary vasculature. Aorta: Unremarkable. No aortic aneurysm. No aortic dissection. Lungs: Unremarkable. No consolidation. No masses. Pleural spaces: Unremarkable. No pneumothorax. No pleural effusion. Heart: Cardiomegaly Lymph nodes: Unremarkable. No enlarged lymph nodes. Liver: Fatty infiltration of the liver Bones/joints: Unremarkable. N IMPRESSION: Cardiomegaly with mild prominence of the pulmonary vascular trunk. No pulmonary embolism is appreciated. No infiltrate or effusion. Thank you for allowing us to participate in the care of your patient. Dictated and Authenticated by: Hazel Chauhan DO 09/16/2022 5:35 AM Eastern Time ([place] & [place]) HPI General Date/Time Provider Initiated Documentation: 09/16/22 04:39 . HPI Narrative: 67-year-old female with a past medical history of type 2 diabetes, retinitis pigmentosa, neurodermatitis, high cholesterol, obstructive sleep apnea, who presents today for evaluation of chest pain. Patient states that she has had chest pain for the last 4 days. There is a slight pleuritic component. It was made better whenever she would take aspirin, so she has taken aspirin daily. Unfortunately tonight the pain did not get better with aspirin, addit ionally she felt that her heart was racing. She denies any recent long trips surgeries procedures or history of blood clots. She denies any significant shortness of breath. No stabbing or tearing sensation. She denies vomiting or diarrhea. No calf tenderness. She does have a history of peripheral varicosities though. Related Data Home Medications Medication Instructions Recorded Confirmed aspirin 81 mg chewable tablet 1 - 2 tab PO DAILY PRN 08/07/12 05/08/22 (Aspirin Low-Strength) multivitamin (Daily-Lorin tablet) 1 ea PO DAILY 07/05/17 05/08/22 ibuprofen 200 mg capsule 200 mg PO Q6H PRN 01/05/20 05/08/22 polyethylene glycol 3350 17 17 g PO DAILY PRN constipation 08/03/21 05/08/22 gram/dose oral powder (Miralax) #238 grams triamcinolone acetonide 0.1 % 1 applic topical BID #80 grams 08/03/21 05/08/22 topical ointment rosuvastatin 5 mg tablet 5 mg PO DAILY #90 tabs 02/24/22 05/08/22 Previous Rx's Medication Instructions Recorded polyethylene glycol 3350 17 17 g PO DAILY PRN constipation 08/03/21 gram/dose oral powder (Miralax) #238 grams triamcinolone acetonide 0.1 % 1 applic topical BID #80 grams 08/03/21 topical ointment rosuvastatin 5 mg tablet 5 mg PO DAILY #90 tabs 02/24/22 Allergies Allergy/AdvReac Type Severity Reaction Status Date / Time lidocaine Allergy Intermediate CHEST PAINS Verified 05/08/22 08:52 amoxicillin trihydrate Allergy Mild Hives, per Verified 05/08/22 08:52 [From Trimox] pt erythromycin base AdvReac Intermediate HEART RACES Verified 05/08/22 08:52 levofloxacin AdvReac Mild Other (See Verified 05/08/22 08:52 Comment) mepivacaine AdvReac Unknown RAPID Verified 05/08/22 08:52 HEART RATE General Stated Complaint: Chest Pain UMU: 2 Review of Systems All systems reviewed & are unremarkable except as noted in HPI and below PFSH All Active Problems (Updated 09/16/22 @ 07:41 by Moise Christensen DO) Dental caries (Acute 06/22/15) Generalized anxiety disorder (Acute 02/18/15) Hyperlipidemia (Acute) 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) Peripheral venous insufficiency (Acute) Type 2 diabetes mellitus without complication, without long-term current use of insulin (Acute 09/11/17) Obstructive sleep apnea (Chronic) CPAP- doesn't use this- could not tolerate it Constipation (Chronic) Visual loss (Acute) legally blind both eyes, very limited vision Retinitis Pigmentosa Toe pain, left (Acute) Nail dystrophy (Acute) Pain, foot (Acute) Low back pain (Acute) Overactive bladder (Acute) Cervical dystonia (Acute) Umbilical hernia (Acute) Swelling of left lower extremity (Acute) URI (upper respiratory infection) (Acute) Chest pain (Acute) Medical History Cervical paraspinal muscle spasm Chest discomfort Chest pain Chronic bilateral low back pain without sciatica (06/07/17) COVID-19 02/2021 tx with antibody infusion Obesity Uterine leiomyoma (12/20/10) Surgical History History of section Family History Mother Personal history of malignant neoplasm Multiple myeloma Father Essential hypertension Heart disease Hyperlipidemia Sister Diabetes Personal history of malignant neoplasm Heart disease Hyperlipidemia Sister Essential hypertension Diabetes Personal history of malignant neoplasm Ovarian Heart disease Mental disorder Sister Diabetes Personal history of malignant neoplasm Adrenal carcinoma(?) Hyperlipidemia Sister Essential hypertension Diabetes Heart disease Hyperlipidemia Brother No problems noted. Brother Abnormal thyroid exam Grandmother Stroke Grandfather Heart disease Grandfather Essential hypertension Heart disease Grandmother No problems noted. Son Sleep trouble Daughter No problems noted. Daughter No problems noted. Social History Smoking/Tobacco Use Status: Never Second Hand Exposure: Yes Smoking risk assessment performed?: Yes Alcohol Intake: current Alcohol Intake frequency: holidays/special occasions only Drug use: Never Substance use type: does not use Caregiver/Support person: No Household members: none Housing: apartment Communication Needs: Blind Education Level: other Details: LEGALLY BLIND Do you need help understanding health information?: Never Pets and animals: No Sexually active: No Do you think of yourself as: straight/heterosexual Current gender identity: female What is your relationship status?: How often do you talk on the phone with friends or family?: three or more times per week Do you belong to any clubs or organized social groups?: no Panel score (0-1 are the most socially isolated patients): 1 Dora/Voodoo: None Seatbelt use: always Drive intox or ride w/intox backhaul driver: No Do you feel safe at home: Yes Do you feel safe in your relationship?: Yes Exam Narrative Exam Narrative: 1.Const: Well-nourished, Well-developed, appearing stated age 2.Eyes: PERRL, no conjunctival injection, and symmetrical lids. 3.ENT: Atraumatic external nose and ears. Moist MM. Neck: Symmetric, trachea midline, No thyromegaly. 4.CVS: +S1/S2, No murmurs or gallops. Peripheral pulses 2+ and equal in all extremities. Brisk capillary refill in all extremities. 5.RESP: Unlabored respiratory effort. Clear to auscultation bilaterally. No wheezes rales or rhonchi 6.GI: Soft, Nontender/Nondistended, No hepatosplenomegaly. No guarding or rebound. 7.MSK: Normocephalic/Atraumatic, Extremities w/o deformity or ttp No cyanosis or clubbing, Normal movement of all extremities 8.Skin: Warm, Dry. No rashes or lesions. 9.Neuro: salesforce administrator II-XII grossly intact. Sensation grossly intact, no focal neurologic deficits. 10.Psych: (AAO) x3. Appropriate mood and affect Course Vital Signs Vital signs: Vital Signs Pulse 93 H 09/16/22 03:34 Respiratory Rate 13 09/16/22 03:34 Blood Pressure 137/118 H 09/16/22 03:34 Pulse Oximetry 100 09/16/22 03:34 Temperature 37 C 09/16/22 03:42 Temperature Source Tympanic 09/16/22 03:42 Pulse 87 09/16/22 03:42 Respiratory Rate 17 09/16/22 03:42 Respiratory Effort Normal 09/16/22 03:40 Blood Pressure 1417/88 H 09/16/22 03:42 Blood Pressure Position Sitting 09/16/22 03:34 Pulse Oximetry 100 09/16/22 03:34 Oxygen Delivery Method Room Air 09/16/22 03:42 Oxygen Flow Rate 0 09/16/22 03:42 Pain Level 0 09/16/22 03:40
[2022-09-16 03:53] LABS: Abs Immature Grans 0.02 10^3/uL (0.0-0.06); Absolute Basophil Count 0.03 10^3/uL (0.0-0.2); Absolute Eosinophil Count 0.11 10^3/uL (0.0-0.7); Absolute Monocyte Count 0.59 10^3/uL (0.1-0.8); Absolute Neutrophil Count 5.15 10^3/uL (1.2-6.7); Basophils % 0.4; Eosinophils % 1.3; HCT 42.6 % (36.0-46.0); HGB 14.3 g/dL (11.2-15.7); Immature Grans % 0.2; MCH 27.5 pg (27.0-33.0); MCHC 33.6 % (32.0-36.0); MCV 82 fL (80-95); MPV 10.5 fL (8.0-11.0); Monocytes % 7.2; Neutrophils % 62.9; Platelet Count 249 10^3/uL (130-400); RDW 13.2 % (11.7-14.6); RDW-SD 39.8 fL
[2022-09-16 04:09] LABS: PTT Activated 23.2 sec (21.5-31.9); Prothrombin Time 10.4 sec (9.3-11.0)
[2022-09-16 04:26] LABS: D-Dimer 632 ng/mlFEU (<500)
--- NOTE | 2022-09-16 04:30 | DI.CT_ITS ---
Exam(s) CT CHEST PE CTA EXAM: CT CHEST PE CTA CLINICAL HISTORY: sob, elevated dimer. TECHNIQUE: Imaging Protocol: CT angiography of the chest was performed using pulmonary embolus mercedes col. Multi planar reconstructions were performed. CONTRAST MATERIAL: Intravenous: Omnipaque 350 Contrast volume: 100 cc COMPARISON: CT CT BRAIN NECK CTA from 11/21/2020 FINDINGS: CHEST: PULMONARY ARTERIES: There are no intraluminal filling defects to suggest acute pulmonary emboli. LUNGS: There are no infiltrates nor evidence of pulmonary infarction.. There are no pleural effusions . MEDIASTINUM: There is no hilar nor mediastinal adenopathy. Visualized thyroid unremarkable. CARDIAC: Mild cardiomegaly. No pericardial effusion.Caliber of the thoracic aorta is within normal l imits. No dissection. There is no significant shift of the interventricular septum. PARTIALLY VISUALIZED UPPERMOST ABDOMEN: No obvious findings OSSEOUS: No significant osseous lesions.. IMPRESSION: 1. No evidence of acute pulmonary emboli. No evidence of pulmonary infarction. No infiltrates and n o pleural effusions. No intrathoracic adenopathy. RADIATION DOSE DELIVERED: 261.26mGy.cm Total DLP DATA REPOSITORY: All CT scans at this facility are submitted to the National Radiology Data Registry (NRDR) Dose Index Registry (DIR) with the [employer] (ACR). RADIATION OPTIMIZATION: All CT scans at this facility use at least one of these dose optimization te chniques: automated exposure control; mA and/or kV adjustment per patient size (includes targeted exa ms where dose is matched to clinical indication); or iterative reconstruction.
[2022-09-16 04:34] LABS: ALT 26 U/L (14-59); AST 26 U/L (15-37); Albumin 3.8 g/dL (3.4-5.0); Alkaline Phosphatase 89 U/L (46-116); Anion Gap 9.6 mmol/L (3-11); BUN 10 mg/dL (7-18); Bilirubin, Total 0.9 mg/dL (0.2-1.0); CO2 25.4 mmol/L (21.0-32.0); CREATININE 0.8 mg/dL (0.55-1.02); Calcium 8.9 mg/dL (8.5-10.1); Chloride 101 mmol/L (98-107); Estimated GFR 81.72 (mL/min/1.73m2); Glucose 136 mg/dL (74-106); NT-proBNP 76 pg/mL (<300); Potassium 3.9 mmol/L (3.5-5.1); Sodium 136 mmol/L (136-145); TSH (W/Ref FT4) 5.19 uIU/mL (0.36-3.74); Total Protein 7.5 g/dL (6.4-8.2); Troponin I < 50 ng/L (<or=60)
[2022-09-16 04:49] LABS: FREE T4 0.93 ng/dL (0.76-1.46)
[2022-09-16] MEDS: Omnipaque 350 MG/ML 100 ML BTL IJ (05:16)
[2022-09-16] MEDS: Normal Saline - Diluent 50 ML VIAL IJ (05:17)
[2022-09-16] MEDS: Normal Saline 500 ML IV (05:32)
--- NOTE | 2022-09-16 05:36 | DI.VRAD_ITS ---
PROCEDURE INFORMATION: Exam: CTA Chest With Contrast Exam date and time: 09/16/2022 5:06 AM Age: 67 years old Clinical indication: Shortness of breath and other: SOB, elevated dimer TECHNIQUE: Imaging protocol: Computed tomographic angiography of the chest with contrast. Exam focused on the arteries. 3D rendering (Not supervised by radiologist): MIP and/or 3D reconstructed images were created by the technologist. Radiation optimization: All CT scans at this facility use at least one of these dose optimization techniques: automated exposure control; mA and/or kV adjustment per patient size (includes targeted exams where dose is matched to clinical indication); or iterative reconstruction. Contrast material: OMNI 350; Contrast volume: 100 ml; Contrast route: INTRAVENOUS (IV); COMPARISON: CR XR CHEST 2V PA LATERAL 10/29/2021 11:14 AM FINDINGS: Pulmonary arteries: Mild prominence of the pulmonary vasculature. Aorta: Unremarkable. No aortic aneurysm. No aortic dissection. Lungs: Unremarkable. No consolidation. No masses. Pleural spaces: Unremarkable. No pneumothorax. No pleural effusion. Heart: Cardiomegaly Lymph nodes: Unremarkable. No enlarged lymph nodes. Liver: Fatty infiltration of the liver Bones/joints: Unremarkable. No acute fracture. Soft tissues: Unremarkable. IMPRESSION: Cardiomegaly with mild prominence of the pulmonary vascular trunk. No pulmonary embolism is appreciated. No infiltrate or effusion. Dictated and Authenticated by: Hazel Chauhan MD. Ordering:LUIS Phipsp MD
[2022-09-16 06:05] LABS: Bilirubin Negative (Negative); Blood Negative (Negative); Clarity Clear (Clear); Glucose Negative (Negative); Ketones Negative (Negative); Leukocyte Esterase Negative (Negative); Nitrite Negative (Negative); Urobilinogen 0.2 mg/dL (Up to 0.2)
--- NOTE | 2022-09-16 06:45 | RT.EKG_ITS ---
APPROVED REPORT Exam: Resting ECG Reason for Exam: chest pain Patient Location: E HR:72 bpm ECG Measurements Heart Rate 72 AXIS AR 154 P 54 QRSd 85 QRS 8 QT 414 T 56 QTc 455 Conclusion Sinus rhythm...normal P axis, V-rate 60- 99 Physician: no stemi
[2022-09-16 06:58] LABS: Troponin I < 50 ng/L (<or=60)
--- NOTE | 2022-09-16 07:48 | NUR.NOTE ---
Nursing Note: this RN was given report from special education aide and resumed care of patient. Patient AOx4, Lung sounds clear, needs x1 standby assist with toilet use R/T being blind. Breakfast ordered for patient call light within reach of patient at this time.
[2022-09-16] MEDS: Heparin 5,000 UNITS/ML VIAL 5000 UNITS SC ×3 (09:53→22:00)
[2022-09-16] MEDS: Normal Saline Flush 10 ML SYR IVP (09:53)
[2022-09-16] MEDS: Pantoprazole 40 MG VIAL IVP (09:53)
--- NOTE | 2022-09-16 10:56 | HPE_ITS ---
Date of service: 09/16/22 Time of Service: 10:56 Assessment and Plan Assessment and plan (1) Chest pain: Status: Acute Assessment and plan: Monitor on tele. No ACS by EKG or troponins. Obtain MPI stress test and an echocardiogram on Sunday09/18/22. (2) Type 2 diabetes mellitus without complication, without long-term current use of insulin: Status: Chronic Assessment and plan: Check A1C. Cover with SSI (3) Hyperlipidemia: Status: Chronic Assessment and plan: Check fasting lipid panel (4) Obstructive sleep apnea: Status: Chronic Assessment and plan: Previously intolerant of CPAP. 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 The chest pain is not exertional, had been going on, on and off, for 4 days, usually getting better with aspirin. The pain is central/substernal. However, at 1 am this morning, the aspirin did not help. The patient also experienced palpitations around that time. Her ER workup was negative for acute ACS and acute PE, but given her h/o of T2DM, hyperlipidemia, observation on hospitalist service for an MPI stress test on Sunday was requested. Review of Systems Narrative: The patient endorses occasional discomfort on taking a deep breath, not experiencing it now. She also endorses occasional indigestion. Denies heartburn. Endorses occasionally feeling clammy with the CP. Denies dizziness, SOB, nausea. All systems reviewed & are unremarkable except as noted in HPI and below PFSH All Active Problems (Updated 09/16/22 @ 19:18 by Estela Martinez MD) Discharge planning issues (Acute) DVT prophylaxis (Acute) Dental caries (Acute 06/22/15) Generalized anxiety disorder (Acute 02/18/15) Hyperlipidemia (Chronic) 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) Peripheral venous insufficiency (Acute) Type 2 diabetes mellitus without complication, without long-term current use of insulin (Chronic 07/24/18) Obstructive sleep apnea (Chronic) CPAP- doesn't use this- could not tolerate it Constipation (Chronic) Visual loss (Acute) legally blind both eyes, very limited vision Retinitis Pigmentosa Toe pain, left (Acute) Nail dystrophy (Acute) Pain, foot (Acute) Low back pain (Acute) Overactive bladder (Acute) Cervical dystonia (Acute) Umbilical hernia (Acute) Swelling of left lower extremity (Acute) URI (upper respiratory infection) (Acute) Chest pain (Acute) Medical History Cervical paraspinal muscle spasm Chest discomfort Chest pain Chronic bilateral low back pain without sciatica (06/07/17) COVID-19 02/2021 tx with antibody infusion Obesity Uterine leiomyoma (12/20/10) Surgical History History of section Family History Mother Personal history of malignant neoplasm Multiple myeloma Father Essential hypertension Heart disease Hyperlipidemia Sister Diabetes Personal history of malignant neoplasm Heart disease Hyperlipidemia Sister Essential hypertension Diabetes Personal history of malignant neoplasm Ovarian Heart disease Mental disorder Sister Diabetes Personal history of malignant neoplasm Adrenal carcinoma(?) Hyperlipidemia Sister Essential hypertension Diabetes Heart disease Hyperlipidemia Brother No problems noted. Brother Abnormal thyroid exam Grandmother Stroke Grandfather Heart disease Grandfather Essential hypertension Heart disease Grandmother No problems noted. Son Sleep trouble Daughter No problems noted. Daughter No problems noted. Social History Smoking/Tobacco Use Status: Never Second Hand Exposure: Yes Smoking risk assessment performed?: Yes Alcohol Intake: current Alcohol Intake frequency: holidays/special occasions only Drug use: Never Substance use type: does not use Caregiver/Support person: No Household members: none Housing: apartment Communication Needs: Blind Education Level: other Details: LEGALLY BLIND Do you need help understanding health information?: Never Pets and animals: No Sexually active: No Do you think of yourself as: straight/heterosexual Current gender identity: female What is your relationship status?: How often do you talk on the phone with friends or family?: three or more times per week Do you belong to any clubs or organized social groups?: no Panel score (0-1 are the most socially isolated patients): 1 Dora/Anabaptist: None Seatbelt use: always Drive intox or ride w/intox experienced truck driver: No Do you feel safe at home: Yes Do you feel safe in your relationship?: Yes Meds Allergies and Home Medications Allergies Allergy/AdvReac Type Severity Reaction Status Date / Time lidocaine Allergy Intermediate CHEST PAINS Verified 09/16/22 08:20 amoxicillin trihydrate Allergy Mild Hives, per Verified 09/16/22 08:20 [From Trimox] pt erythromycin base AdvReac Intermediate HEART RACES Verified 09/16/22 08:20 levofloxacin AdvReac Mild Other (See Verified 09/16/22 08:20 Comment) mepivacaine AdvReac Unknown RAPID Verified 09/16/22 08:20 HEART RATE Home Medications Medication Instructions Recorded Confirmed Type aspirin 81 mg chewable tablet 1 - 2 tab PO DAILY PRN 08/07/12 09/16/22 History (Aspirin Low-Strength) multivitamin (Daily-Lorin tablet) 1 ea PO DAILY 07/05/17 09/16/22 History ibuprofen 200 mg capsule 200 mg PO Q6H PRN 01/05/20 09/16/22 History polyethylene glycol 3350 17 17 g PO DAILY PRN constipation 08/03/21 05/08/22 Rx gram/dose oral powder (Miralax) #238 grams triamcinolone acetonide 0.1 % 1 applic topical BID #80 grams 08/03/21 05/08/22 Rx topical ointment rosuvastatin 5 mg tablet 5 mg PO DAILY #90 tabs 02/24/22 05/08/22 Rx Exam Narrative Exam Narrative: General: A very pleasant female who looks older than her stated age, A&Ox3, mildly anxious Neurological: A&Ox3, no focal deficits other than difficulty seeing Psychiatric: mildly anxious Skin: Visible skin, including on B feet, intact HEENT: Atraumatic, normocephalic, EOMI, MMM, clear oropharynx, no submandibular or cervical lymphadenopathy, no goiter or JVD Cardiovascular: RRR, no m/r/g Lungs: CTAB Gastrointestinal: soft, nontender, nondistended Genitourinary: deferred Extremities: trace edema RLE, +1 edema LLE, varicous veins LLE, no c/c, trace pedal pulses B Results Imaging Additional studies: CTA chest: 1. No evidence of acute pulmonary emboli.? No evidence of pulmonary infarction.? No infiltrates and no pleural effusions.? No intrathoracic adenopathy. EKG #1: NSR, HR 89, no acute ischemia EKG #2: NSR, HR 72, no acute ischemia Labs 09/16/22 03:40 09/16/22 03:40 Labs: Laboratory Results - last 24 hr 09/16/22 09/16/22 09/16/22 03:40 03:40 03:40 WBC 8.20 RBC 5.20 Hgb 14.3 Hct 42.6 MCV 82 MCH 27.5 MCHC 33.6 RDW 13.2 Plt Count 249 MPV 10.5 Immature Gran % 0.2 Neutrophils % 62.9 Lymphocytes % 28.0 Monocytes % 7.2 Eosinophils % 1.3 Basophils % 0.4 Nucleated RBC % 0.0 Absolute Neutrophils 5.15 Absolute Lymphocytes 2.30 Absolute Monocytes 0.59 Absolute Eosinophils 0.11 Absolute Basophils 0.03 PT INR APTT D-Dimer 632 H Sodium 136 Potassium 3.9 Chloride 101 Carbon Dioxide 25.4 Anion Gap 9.6 BUN 10 Creatinine 0.8 Est GFR (CKD-EPI 2020) 81.72 Glucose 136 H Calcium 8.9 Total Bilirubin 0.9 AST 26 ALT 26 Alkaline Phosphatase 89 Troponin I < 50 NT-Pro-B Natriuret Pep 76 Total Protein 7.5 Albumin 3.8 TSH 5.19 H Free T4 0.93 Urine Color Urine Clarity Urine pH Ur Specific [place] Urine Protein Urine Ketones Urine Blood Urine Nitrite Urine Bilirubin Urine Urobilinogen Ur Leukocyte Esterase Urine Glucose 09/16/22 09/16/22 09/16/22 03:40 05:30 06:35 WBC RBC Hgb Hct MCV MCH MCHC RDW Plt Count MPV Immature Gran % Neutrophils % Lymphocytes % Monocytes % Eosinophils % Basophils % Nucleated RBC % Absolute Neutrophils Absolute Lymphocytes Absolute Monocytes Absolute Eosinophils Absolute Basophils PT 10.4 INR 1.0 APTT 23.2 D-Dimer Sodium Potassium Chloride Carbon Dioxide Anion Gap BUN Creatinine Est GFR (CKD-EPI 2020) Glucose Calcium Total Bilirubin AST ALT Alkaline Phosphatase Troponin I < 50 NT-Pro-B Natriuret Pep Total Protein Albumin TSH Free T4 Urine Color Yellow Urine Clarity Clear Urine pH 7.0 Ur Specific [place] 1.010 Urine Protein Negative Urine Ketones Negative Urine Blood Negative Urine Nitrite Negative Urine Bilirubin Negative Urine Urobilinogen 0.2 Ur Leukocyte Esterase Negative Urine Glucose Negative Last Vital Signs Temp 36.6 C 09/16/22 08:40 Pulse 81 09/16/22 08:55 Resp 16 09/16/22 08:40 BP 150/90 H 09/16/22 08:40 Pulse Ox 98 09/16/22 08:40 Time Spent Time spent with Patient: 55-74 minutes Time was spent: preparing to see the patient(eg.review tests), obtaining and/or reviewing separately otained hiistory, ordering medications,tests, procedures, referring, communicating with other health care transition coordinator, indepentently interpreting results, counseling the patient and care coordination
--- NOTE | 2022-09-16 12:49 | INITIAL_ITS ---
Date of service: 09/16/22 Time of Service: 12:49 Care Management Initial Assmt Initial Assessment REASON FOR HOSPITALIZATION:: chest pain PREVIOUS FUNCTIONAL STATUS/SOCIAL/FAMILY SUPPORTS:: Marsha lives alone in [address] [facility] [address] in [facility]. She is legally blind but manages to care for herself without assistance. She is independent with ADLs and uses [facility] for transportation. Marsha has 3 children. Her daughter Viry works at [employer] She is very supportive and does the grocery shopping for Marsha. Her other daughter, the youngest, is named Linda. She was recently in July and lives in [place] with her . Marsha shared that she visits them often, usually overnight. Marsha's third child is a son but unfortunately they are currently estranged. Marsha stated that she does not anticipate needing any new services at discharge. CURRENT FUNCTIONAL STATUS:: Marsha was sitting up in a chair when CM met with her. She was open and friendly and talkative. 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 That is where she met her . Marsha informed that she has had chest pain for 4 days and finally decided to get it checked out last night. She shared that her cell phone would not work nor did her Life Alert. Her house phone was also a problem but she eventually got assistance and EMS transport to the hospital. Marsha admitted that she may have misdialed the phones as she is visually impaired. ADVANCE DIRECTIVES:: none on file Has patient been provided with info about the portal/API?: Yes Did the patient sign up for the portal?: No CODE STATUS:: Full Code INSURANCE COVERAGE / FINANCIAL ISSUES:: Medicare Medicaid CURRENT HOME/COMMUNITY SERVICES/EQUIPMENT:: owns a walker - doesn't use uses a cane when leaving the house PRIMARY CARE PHYSICIAN:: Jose Antonio Corcoran POTENTIAL DISCHARGE NEEDS:: follow up with community providers PATIENT/FAMILY EDUCATION NEEDS:: Review of discharge instructions, limitations, follow up plan, discuss Ask Me Three ANTICIPATED BARRIERS TO DISCHARGE:: unavailability of ECHO and Stress testing on weekend TRANSPORTATION:: via [facility] PLAN:: Anticipate Marsha will be discharged home with no new services after testing complete on Sunday. She will follow up with her PCP and plan of care as prescribed and transport via [facility] coordinated by CM. CM to follow and assess for discharge concerns. 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) Peripheral venous insufficiency (Acute) Type 2 diabetes mellitus without complication, without long-term current use of insulin (Acute 09/11/17) Obstructive sleep apnea (Chronic) CPAP- doesn't use this- could not tolerate it Constipation (Chronic) Visual loss (Acute) legally blind both eyes, very limited vision Retinitis Pigmentosa Toe pain, left (Acute) Nail dystrophy (Acute) Pain, foot (Acute) Low back pain (Acute) Overactive bladder (Acute) Cervical dystonia (Acute) Umbilical hernia (Acute) Swelling of left lower extremity (Acute) URI (upper respiratory infection) (Acute) Chest pain (Acute) Medical History Cervical paraspinal muscle spasm Chest discomfort Chest pain Chronic bilateral low back pain without sciatica (06/07/17) COVID-19 02/2021 tx with antibody infusion Obesity Uterine leiomyoma (12/20/10) Surgical History History of section Family History Mother Personal history of malignant neoplasm Multiple myeloma Father Essential hypertension Heart disease Hyperlipidemia Sister Diabetes Personal history of malignant neoplasm Heart disease Hyperlipidemia Sister Essential hypertension Diabetes Personal history of malignant neoplasm Ovarian Heart disease Mental disorder Sister Diabetes Personal history of malignant neoplasm Adrenal carcinoma(?) Hyperlipidemia Sister Essential hypertension Diabetes Heart disease Hyperlipidemia Brother No problems noted. Brother Abnormal thyroid exam Grandmother Stroke Grandfather Heart disease Grandfather Essential hypertension Heart disease Grandmother No problems noted. Son Sleep trouble Daughter No problems noted. Daughter No problems noted. Social History Smoking/Tobacco Use Status: Never Second Hand Exposure: Yes Smoking risk assessment performed?: Yes Alcohol Intake: current Alcohol Intake frequency: holidays/special occasions only Drug use: Never Substance use type: does not use Caregiver/Support person: No Household members: none Housing: apartment Communication Needs: Blind Education Level: other Details: LEGALLY BLIND Do you need help understanding health information?: Never Pets and animals: No Sexually active: No Do you think of yourself as: straight/heterosexual Current gender identity: female What is your relationship status?: How often do you talk on the phone with friends or family?: three or more times per week Do you belong to any clubs or organized social groups?: no Panel score (0-1 are the most socially isolated patients): 1 Dora/Yarsanism: None Seatbelt use: always Drive intox or ride w/intox hi low truck driver: No Do you feel safe at home: Yes Do you feel safe in your relationship?: Yes
[2022-09-17] VITALS (10 sets, daily range): BP systolic 110–137; BP diastolic 71–79; PULSE 51–75; RESP 16–18; TEMP 36–37.1; O2SAT 98–100
[2022-09-17 06:51] LABS: Hemoglobin A1C 6.3 % (<5.7)
[2022-09-17 06:56] LABS: ALT 20 U/L (14-59); AST 17 U/L (15-37); Albumin 3.1 g/dL (3.4-5.0); Alkaline Phosphatase 78 U/L (46-116); Anion Gap 7.1 mmol/L (3-11); BUN 15 mg/dL (7-18); Bilirubin, Direct 0.1 mg/dL (0.0-0.2); Bilirubin, Total 0.4 mg/dL (0.2-1.0); CO2 26.9 mmol/L (21.0-32.0); CREATININE 0.6 mg/dL (0.55-1.02); Calcium 8.8 mg/dL (8.5-10.1); Chloride 105 mmol/L (98-107); Estimated GFR 99.55 (mL/min/1.73m2); Glucose 126 mg/dL (74-106); Magnesium 2.2 mg/dL (1.8-2.4); Potassium 4.3 mmol/L (3.5-5.1); Sodium 139 mmol/L (136-145); Total Protein 6.6 g/dL (6.4-8.2)
[2022-09-17 06:57] LABS: Calculated LDL 128 mg/dL (<100); Cholesterol 203 mg/dL (<200); HDL Cholesterol 61 mg/dL (40-60); Triglyceride 73 mg/dL (<150)
--- NOTE | 2022-09-17 08:30 | RT.EKG_ITS ---
APPROVED REPORT Exam: Resting ECG Reason for Exam: chest pain yesterday, pause Patient Location: I HR:64 bpm ECG Measurements Heart Rate 64 AXIS DE 153 P 11 QRSd 90 QRS 1 QT 412 T 76 QTc 425 Conclusion Sinus rhythm...normal P axis, V-rate 50- 99 Normal Electrocardiogram
[2022-09-17] MEDS: Rosuvastatin 5 MG TAB PO (09:12)
[2022-09-17] MEDS: Multivitamin TAB 1 TAB PO (09:13)
[2022-09-17] MEDS: Aspirin E.C. 81 MG TABEC PO (09:13)
[2022-09-17] MEDS: Pantoprazole 40 MG TABCR PO (09:13)
[2022-09-17] MEDS: Normal Saline Flush 10 ML SYR IVP (09:14)
[2022-09-17] MEDS: Heparin 5,000 UNITS/ML VIAL 5000 UNITS SC ×3 (09:14→23:22)
--- NOTE | 2022-09-17 16:26 | PGE_ITS ---
Date of Service Date of service: 09/17/22 Time of Service: 16:26 Assessment and Plan Assessment and plan (1) Chest pain: Status: Acute Assessment and plan: Monitor on tele. No ACS by EKG or troponins. Await MPI stress test and an echocardiogram tomorrow. Continue PPI. I think there is a high probability that the symptoms are of GI origin. (2) Type 2 diabetes mellitus without complication, without long-term current use of insulin: Status: Chronic Assessment and plan: A1C is 6.3. Evidently, it is not clear whether the patient actually has a talking glucometer at home. The patient and the daughter made contradictory statements to nursing. DM education is consulted. COntinue SSI (3) Hyperlipidemia: Status: Chronic Assessment and plan: I have represcribed rosuvastin that the patient was not taking. (4) Obstructive sleep apnea: Status: Chronic Assessment and plan: Previously intolerant of CPAP. F/u as outpatient (5) Constipation: Status: Chronic Assessment and plan: Schedule bowel regimen. (6) DVT prophylaxis: Status: Acute Assessment and plan: SC heparin (7) Discharge planning issues: Status: Acute Assessment and plan: Full code Anticipate discharge home tomorrow Subjective Subjective Interval history since last seen: Ms Beaulieu describes some discomfort in her chest and subcostally on the L this morning, which she noticed especially when she had straightened and elevated her legs in the recliner. No nausea, dizziness, SOB. She does endorse constipation. Usually takes miralax at home. Describes several days of constipation at home prior to hospitalization. States at home she usually takes miralax when gets constipated. States her ventral hernia is always there and has not changed and is not bothering her. Exam Narrative Exam Narrative: General: A very pleasant female, blind, who looks older than her stated age, A&Ox3, mildly anxious HEENT: EOMI, MMM Cardiovascular: RRR, no m/r/g Lungs: CTAB Gastrointestinal: soft, mildly tender in LUQ, full, +ventral hernia Extremities: trace edema RLE, +1 edema LLE, varicous veins LLE, no c/c, trace pedal pulses B Objective Last Vital Signs Temp 37.1 C 09/17/22 14:49 Pulse 75 09/17/22 15:35 Resp 16 09/17/22 14:49 BP 117/74 09/17/22 14:49 Pulse Ox 98 09/17/22 14:49 Laboratory Results - last 24 hr 09/17/22 09/17/22 09/17/22 06:12 06:12 06:12 Sodium 139 Potassium 4.3 Chloride 105 Carbon Dioxide 26.9 Anion Gap 7.1 BUN 15 Creatinine 0.6 Est GFR (CKD-EPI 2020) 99.55 Glucose 126 H Hemoglobin A1c 6.3 H Calcium 8.8 Magnesium 2.2 Total Bilirubin 0.4 Conjugated Bilirubin 0.1 AST 17 ALT 20 Alkaline Phosphatase 78 Total Protein 6.6 Albumin 3.1 L Triglycerides 73 Total Cholesterol 203 H LDL Cholesterol, Calc 128 H HDL Cholesterol 61 Add-On Test Request 09/17/22 Unknown Sodium Potassium Chloride Carbon Dioxide Anion Gap BUN Creatinine Est GFR (CKD-EPI 2020) Glucose Hemoglobin A1c Calcium Magnesium Total Bilirubin Conjugated Bilirubin AST ALT Alkaline Phosphatase Total Protein Albumin Triglycerides Total Cholesterol LDL Cholesterol, Calc HDL Cholesterol Add-On Test Request Cancelled Time Spent with Patient Time Spent with Patient: 25-34 minutes Time was spent: preparing to see the patient(eg.review tests), obtaining and/or reviewing separately otained hiistory, ordering medications,tests, procedures, referring, communicating with other health patient care technician instructor, indepentently interpreting results, counseling the patient and care coordination
[2022-09-17] MEDS: Polyethylene Glycol 3350 17 GM PACKET PO (17:14)
[2022-09-17] MEDS: Docusate Sodium 100 MG CAP PO ×2 (17:14→21:25)
[2022-09-18 02:03] VITALS: BP 147/80; PULSE 102; RESP 16; TEMP 36.5; O2SAT 98
[2022-09-18 06:38] VITALS: BP 138/82; PULSE 86; RESP 16; TEMP 36.8; O2SAT 96
[2022-09-18 07:00] VITALS: PULSE 98
[2022-09-18] MEDS: Rosuvastatin 5 MG TAB PO (07:51)
[2022-09-18] MEDS: Multivitamin TAB 1 TAB PO (07:52)
[2022-09-18] MEDS: Aspirin E.C. 81 MG TABEC PO (07:52)
[2022-09-18] MEDS: Pantoprazole 40 MG TABCR PO (07:52)
[2022-09-18] MEDS: Docusate Sodium 100 MG CAP PO (07:52)
[2022-09-18 07:53] VITALS: BP 146/81; PULSE 72; TEMP 36.8; O2SAT 97
[2022-09-18] MEDS: Heparin 5,000 UNITS/ML VIAL 5000 UNITS SC (07:53)
[2022-09-18] MEDS: Normal Saline Flush 10 ML SYR IVP (07:53)
--- NOTE | 2022-09-18 08:00 | DI.NM_ITS ---
APPROVED REPORT Exam: Pharmacologic Patient Location: In-Patient Room/Bed: Stress Nurse: Kassi Davidson RN Ordering Provider:CHRISTIAN PRYOR, Contact Number: [phone] BMI: 29.46 Baseline Rhythm: Sinus Rhythm Indications: Chest pain Medical History Medical History: STAN, DMII, HLD, anxiety, hx covid 12 with MAB Cardiac Medications: Aspirin, protonix, rosuvastatin Allergies: Lidocaine, amoxicillin, erythromycin, levofloxacin, mepivacaine Cardiac Risk Factors: Family hx, HLD, PVD, diabetes, obesity Previous Cardiac Procedures: None Pretest Chest Pain Characteristics: None Exercise History: Sedentary Physical Disabilities: Generalized weakness Lung Sounds: Clear to auscultation Heart Sounds: Regular Stress Test Details Test: Pharmacologic stress testing performed using 0.4 mg of regadenoson per 5 mL given IV over 10 s econds. Reason for pharmacologic stress test: physical limitation. Nuclear Acquisition: Rest Tc-99m/Stress Tc-99m 1 day Rest Isotope: Tc-99m Sestamibi. Dose: 11.0 Date: 09/18/2022 Injection Time: 0845 Stress Isotope: Tc-99m Sestamibi. Dose: 33.0 Date: 09/18/2022 Injection Time: 1020 HR Resting HR Supine: 76 bpm Max Heart Rate (APMHR): 155.208457 bpm Target HR (85% APMHR): 131.541965 bpm Max HR Achieved: 111 bpm % of APMHR: 71.61 Recovery HR: 86 bpm BP Resting BP Supine: 128/78 mmHg Max BP: 142/80 mmHg Recovery BP: 142/80 mmHg ECG Resting ECG: Sinus Rhythm Ectopy: None Stress ECG: Sinus Tachycardia ST Change: Nondiagnostic low heart rate Comment: None Recovery ECG: Sinus Rhythm Recovery ST Change: Nondiagnostic low heart rate Recovery Arrhythmia: None Clinical Stress Symptoms: Mild SOB Angina Score: None Rate Pressure Product: [id number] Stress ECG Conclusion 1. Resting electrocardiogram was normal 2. Patient underwent testing with pharmacologic stress with regadenoson 3. Peak heart rate achieved was 72% of predicted for age 4. The electrocardiographic portion of the test was nondiagnostic 5. See MPI report Stress Test Summary STAGE HR BP SpO2 Symptoms NOTES Supine 76 128/78 95 1 min post Lexiscan injection 103 134/86 98 Mild SOB 3 min post Lexiscan injection 96 132/86 98 Mild SOB 6 min post Lexiscan injection 86 142/80 98 All symptoms resolved MPI Conclusion Myocardial perfusion is normal. There is no ischemia or evidence of prior infarction EF is 61% with normal wall motion Radiologist Interpretation Radiologist agrees with Account Officer's Interpretation. Radiologist Interpretation by: Les Harris MD Interpretation Date/Time: 09/20/2022 10:30:03
--- NOTE | 2022-09-18 08:00 | DI.US_ITS ---
APPROVED REPORT EXAM: Comprehensive 2D, Doppler, and color-flow Echocardiogram Patient Location: In-Patient Room/Bed: 216 Insulation Estimator: Joseph Devine RDCS Indications: chest pain Other Information Study Quality: Fair. Technically limited study due to body habitus, inability to position patient. Conclusion Normal left ventricular wall thickness and chamber size. Ejection fraction is 60 to 65%. Wall motio n is normal Normal right ventricular size and systolic function Both atria are normal in size There is no structural or hemodynamically significant valvular disease Mildly dilated ascending aorta measuring 3.6 cm Right ventricular systolic pressure could not be estimated Wall motion Left Ventricle The left ventricle is normal size. The left ventricular systolic function is normal. The left ventric ular ejection fraction is within the normal range. There is normal left ventricular wall thickness. T here is normal LV segmental wall motion. There is no ventricular septal defect visualized. LVEF is 60 -65%. Right Ventricle The right ventricle is normal size. The right ventricular systolic function is normal. Unable to asse ss PA pressure. Atria The left atrium size is normal. The right atrium size is normal. The interatrial septum is intact wit h no evidence for an atrial septal defect. Aortic Valve The aortic valve is normal in structure. Aortic valve is trileaflet. There is no aortic valvular sten osis. Mitral Valve The mitral valve is normal in structure. No evidence of mitral valve stenosis. There is no mitral yumiko ve regurgitation noted. Tricuspid Valve The tricuspid valve is normal in structure. There is no tricuspid valve stenosis. Trace tricuspid reg urgitation. Pulmonic Valve The pulmonary valve is normal in structure. There is no pulmonic valvular stenosis. There is no pulmo leslye valvular regurgitation. Great Vessels Aortic root is mildly dilated. The ascending aorta is mildly dilated. Aortic arch is normal in calib er. IVC is normal in size and collapses >50% with inspiration. Pericardium There is no pericardial effusion. 2D Dimensions IVSD d PLAX 0.60 cm F: 0.6-1.0 LV Vol A2C d MOD 72.5 mL LVPW d PLAX 0.61 cm F: 0.6 - 1.0 LV Vol A4C d MOD 69.4 mL LVID d PLAX 3.41 cm F: 3.8 - 5.2 LV EF A4C MOD 63.1 % LVDs 2.10 cm F: 2.2 - 3.5 LV EF A2C MOD 62.0 % Ao Root d 3.63 cm F: 2.7 - 3.3 LV EF Biplane MOD 60.2 % Ao Asc Diam d 3.60 cm F: 2.3 - 3.1 SV 42.82 mL LV EF Teichholz 68.6 % SV Index 28.23 mL/m2 LVEF (Green's) 60.21 % F: 54 - 74 LV Volume 59.01 mL F: 46 - 106 LV Volume Index 38.82 mL/m2 F: 29 - 61 LV Vol Biplane MOD 71.1 mL FS 37.40 % LV Diastology MV E' medial 0.107 (>0.07 m/s) E/A Ratio 0.6 LV E/e MED 3.85 (<14) MV E Vmax 0.41 (0.4-1.3 m/s) MV E' lateral 0.131 (>0.1 m/s) MV A Vmax 0.65 (0.4-1.3 m/s) LV E/e LAT 3.10 (<14) MV E/A Ratio 0.59 MV E/E' medial 3.85 MV E/E' lateral 3.13 Aortic Valve LVOT Area 3.56 cm2 AoV Area Vmax 2.86 cm2 LVOT Vmax 0.73 m/s AoV Area/ BSA (Vmax) 1.89 cm2/m2 LVOT Mean Chacho. 0.44 m/s SAVANNAH Mean [place]acho. 2.67 cm2 LVOT Peak Grad 2.1 mmHg SAVANNAH Mean [place]. Index 1.76 cm2/m2 LVOT Mean Grad 1.0 mmHg LVOT VTI 0.143 m LVOT Diam s 2.10 cm AoV Vmax 0.90 m/s Velocity Ratio 0.81 AoV Mean [place]acho. 0.59 m/s AoV Peak Grad 3.3 mmHg LVOT SV 51.09 mL AoV Mean Grad 1.6 mmHg AoV VTI 0.165 m AoV Area VTI 3.10 cm2 AoV Area/ BSA (VTI) 2.04 cm/m2 Mitral Valve MV DT 282 (160-240 msec) MV PHT 82 msec MV Area PHT 2.69 cm2 Pulmonary Valve PV Vmax 0.82 (0.5-1.5 m/s) RVOT Peak Gr. 1.64 mmHg PV Peak Grad 2.7 mmHg RVOT Mean Gr. 0.75 mmHg PV Mean Grad 1.4 mmHg RVOT VTI 0.126 m PV VTI 0.137 m RVOT Vmax 0.64 m/s Tricuspid Valve RA Pressure 3.00 mmHg
[2022-09-18] MEDS: Regadenoson 0.4 MG/5 ML SYR IVP (10:30)
--- NOTE | 2022-09-18 11:22 | DSE_ITS ---
Date of service: 09/18/22 Time of Service: 11:22 DS: Diagnosis Discharge Diagnosis (1) Chest pain: Status: Acute (2) Type 2 diabetes mellitus without complication, without long-term current use of insulin: Status: Chronic (3) Hyperlipidemia: Status: Chronic (4) Obstructive sleep apnea: Status: Chronic (5) Constipation: Status: Chronic Discharge Plan Disposition Patient Disposition: Home Condition: Stable Discharge Details Reason For Visit: Chest Pain Admit Date/Time: 09/16/22 07:40 Admit Provider: Estela Martinez Attending Provider: Estela Martinez Primary Care Provider: Jose Antonio Ivey Hospital Course Hospital Course: This is a 67-year-old female with a history of type 2 diabetes mellitus hyperlipidemia peripheral vascular disease obstructive sleep apnea who presented to the emergency department after being woken up with chest pain. She reports that her symptoms have been ongoing for days. They are not associated with exer tion. She states that it is getting better with aspirin. Her work-up in the emergency department showed no acute coronary syndrome no acute pulmonary embolism. Her serial troponins also remained negative she was admitted to the hospitalist services on telemetry her vital signs have remained stable. She has remained chest pain-free. She had no dysrhythmias on telemetry. Also discussed during hospitalization was her constipation. She did receive bowel regimen and will be discharged home on a recommended bowel regimen to adjust as needed outpatient. She was started on a PPI as it is suspected that her chest pain could be GI etiology. Work-up while hospitalized included echocardiogram and stress test, both preliminary reports as unremarkable with normal EF. Will defer review of final reads with primary care provider at outpatient appointment. She is discharged to home with no new services. discussed with DR Martinez Home Meds and New Rx's Prescriptions: New polyethylene glycol 3350 17 gram Powder In Packet 17 g PO BID PRN PRNQty: 60 0RF pantoprazole 40 mg Tablet,Delayed Release (Dr/Ec) 40 mg PO DAILY@0730 Qty: 30 0RF docusate sodium [Colace] 100 mg Capsule 100 mg PO BID Qty: 60 0RF Continued rosuvastatin 5 mg tablet 5 mg PO DAILY Qty: 90 0RF Patient Comments: does not take polyethylene glycol 3350 [Miralax] 17 gram/dose powder 17 g PO DAILY PRN (Reason: constipation) Qty: 238 11RF Patient Comments: does not take aspirin [Aspirin Low-Strength] 81 MG tablet,chewable 1 - 2 tab PO DAILY PRN Patient Comments: 06/07/17 Taking one tab daily. LR multivitamin [Daily-Lorin] 1 EACH tablet 1 ea PO DAILY ibuprofen 200 mg capsule 200 mg PO Q6H PRN No Action triamcinolone acetonide 0.1 % ointment 1 applic topical BID Qty: 80 1RF Patient Comments: does not take Rx Instructions: to affected area prn Discharge Instructions Instructions: Constipation (DC) Additional Instructions: please continue to take one baby aspirin daily (81 mg) Referrals: Jose Antonio Ivey [facility] [Primary Care Provider] - Activity:: Activity as Tolerated Equipment/Supplies:: No Equipment Needed Diet:: As Tolerated Discharge Orders Discharge Orders: Discharge Order (Routine); Ordered 09/18/22 Ordered By: Stephanie Sandoval Other Ambulatory Orders: Cardiac Event Recorder (Routine) Timeframe: [id number] Facility: [facility] - Location: Respiratory Therapy Ordered By: Stephanie Sandoval DS: Summary Time Spent with Patient providing and/or coordinating discharge services: Greater than 30 minutes Status at Discharge Functional status at discharge: independent ambulation Overall status at discharge: patient is back to baseline Mental Status: mental status grossly normal Speech and Movement: speech and movement normal Mood: congruent mood Affect: normal affect Exam Const General: comfortable, frail appearing and ill appearing (older than stated age) chronically Nutritional Appearance: overweight Orientation: alert, awake and oriented x3 HENMT Head: normal to inspection Teeth and gingiva: poor dentition (many missing, decay) Chest Chest: normal inspection of the chest Resp Effort & Inspection: normal respiratory effort Auscultation: clear to auscultation bilaterally Cardio Rate: regular rate Rhythm: regular rhythm Heart Sounds: no murmurs GI Inspection: distended and other (States she is passing flatus) Palpation: soft and nontender Skin General skin exam: no rashes or lesions noted Neuro General: patient alert, patient awake and patient oriented x3 Extrem General: normal to inspection and no pedal edema Psych Mental Status: mental status grossly normal Speech and Movement: speech and movement normal Mood: congruent mood Affect: normal affect DS: Data Vitals/I&O Vitals and I&O: Vital Signs Temperature 36.8 C 09/18/22 07:53 Temperature Source Tympanic 09/18/22 07:53 Pulse 72 09/18/22 07:53 Pulse Rhythm Irregular 09/18/22 08:40 Pulse 76 09/16/22 07:30 Respiratory Rate 16 09/18/22 06:38 Respiratory Effort Normal, Non-Labored 09/18/22 08:40 Respiratory Depth Normal 09/18/22 08:40 Respiratory Pattern Normal 09/18/22 08:40 Blood Pressure 146/81 H 09/18/22 07:53 Blood Pressure Mean 88 09/16/22 07:30 Blood Pressure Position Sitting 09/16/22 03:34 Pulse Oximetry 97 09/18/22 07:53 Oxygen Delivery Method Room Air 09/18/22 07:53 Oxygen Flow Rate 0 09/18/22 07:53 Pain Level 0 09/18/22 07:53 Intake & Output 09/17/22 09/17/22 09/18/22 11:59 23:59 11:59 Intake Total 1130 / 1530 400 / 1530 Output Total 1000 / 2650 1650 / 2650 100 / 100 Balance 130 / -1120 -1250 / -1120 -100 / -100 Weight 59 kg 64 kg Intake: Oral 1130 / 1530 400 / 1530 Output: Urine 1000 / 2650 1650 / 2650 100 / 100 Other: Urine Color Yellow Yellow Yellow Urine Appearance Clear Cloudy Clear Urine Odor None Normal Voiding Methods Bedside Commode Toilet Toilet PFSH All Active Problems (Updated 09/16/22 @ 19:18 by Estela Martinez MD) Discharge planning issues (Acute) DVT prophylaxis (Acute) Dental caries (Acute 06/22/15) Generalized anxiety disorder (Acute 02/18/15) Hyperlipidemia (Chronic) 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) Peripheral venous insufficiency (Acute) Type 2 diabetes mellitus without complication, without long-term current use of insulin (Chronic 09/11/17) Obstructive sleep apnea (Chronic) CPAP- doesn't use this- could not tolerate it Constipation (Chronic) Visual loss (Acute) legally blind both eyes, very limited vision Retinitis Pigmentosa Toe pain, left (Acute) Nail dystrophy (Acute) Pain, foot (Acute) Low back pain (Acute) Overactive bladder (Acute) Cervical dystonia (Acute) Umbilical hernia (Acute) Swelling of left lower extremity (Acute) URI (upper respiratory infection) (Acute) Chest pain (Acute) Medical History Cervical paraspinal muscle spasm Chest discomfort Chest pain Chronic bilateral low back pain without sciatica (06/07/17) COVID-19 02/2021 tx with antibody infusion Obesity Uterine leiomyoma (12/20/10) Surgical History History of section Family History Mother Personal history of malignant neoplasm Multiple myeloma Father Essential hypertension Heart disease Hyperlipidemia Sister Diabetes Personal history of malignant neoplasm Heart disease Hyperlipidemia Sister Essential hypertension Diabetes Personal history of malignant neoplasm Ovarian Heart disease Mental disorder Sister Diabetes Personal history of malignant neoplasm Adrenal carcinoma(?) Hyperlipidemia Sister Essential hypertension Diabetes Heart disease Hyperlipidemia Brother No problems noted. Brother Abnormal thyroid exam Grandmother Stroke Grandfather Heart disease Grandfather Essential hypertension Heart disease Grandmother No problems noted. Son Sleep trouble Daughter No problems noted. Daughter No problems noted. Social History Smoking/Tobacco Use Status: Never Second Hand Exposure: Yes Smoking risk assessment performed?: Yes Alcohol Intake: current Alcohol Intake frequency: holidays/special occasions only Drug use: Never Substance use type: does not use Caregiver/Support person: No Household members: none Housing: apartment Communication Needs: Blind Education Level: other Details: LEGALLY BLIND Do you need help understanding health information?: Never Pets and animals: No Sexually active: No Do you think of yourself as: straight/heterosexual Current gender identity: female What is your relationship status?: How often do you talk on the phone with friends or family?: three or more times per week Do you belong to any clubs or organized social groups?: no Panel score (0-1 are the most socially isolated patients): 1 Dora/Scientologist: None Seatbelt use: always Drive intox or ride w/intox test car driver: No Do you feel safe at home: Yes Do you feel safe in your relationship?: Yes Time Spent with Patient Time Spent with Patient: <45 minutes Time was spent: ordering medications,tests, procedures, referring, communicating with other health rn care transition and indepentently interpreting results
[2022-09-18 11:47] VITALS: BP 132/85; PULSE 82; TEMP 37.3; O2SAT 98
[2022-09-18] MEDS: Polyethylene Glycol 3350 17 GM PACKET PO (12:15)
--- NOTE | 2022-09-18 12:58 | PDOC.CMDIS ---
Date of service: 09/18/22 Time of Service: 12:58 LACE Index Scoring Tool Questions: Length of Stay (in days): 2 Was the patient admitted via the E.D.?: Yes Comorbidities: Diabetes w/o Complication E.D. Visits: 1 Answers: Total Score: 7 Risk of Readmission: Low Risk Care Management Discharge Plan Reason for Hospitalization: chest pain Discharge Plan: Marsha is discharged home via private vehicle with family. She will follow up with her PCP and discharge plan of care as instructed. No new services are ordered, prior to discharge. Patient/Family Education Needs: Review discharge instructions, limitations, medications and plan to follow up with community providers. Discuss ask me three and goals of self care.
== END 2022-09-18 13:55 | disposition home or self-care (01) ==
LOC: ER 07:46 → MS 08:26
PROVIDERS: Admitting Provider Internal Medicine; Emergency Provider Student in an Organized Health Care Education/Training Program; PCP Nurse Practitioner Family; Visit Provider Internal Medicine
DX: R07.9 Chest pain, unspecified (principal); R06.02 Shortness of breath; E11.9 Type 2 diabetes mellitus without complications; R79.1 Abnormal coagulation profile; H35.52 Pigmentary retinal dystrophy; L28.0 Lichen simplex chronicus; E78.00 Pure hypercholesterolemia, unspecified; G47.33 Obstructive sleep apnea (adult) (pediatric); Z79.82 Long term (current) use of aspirin; F41.1 Generalized anxiety disorder; E78.5 Hyperlipidemia, unspecified; I87.2 Venous insufficiency (chronic) (peripheral); K59.00 Constipation, unspecified; H54.8 Legal blindness, as defined in USA; Z79.899 Other long term (current) drug therapy; I51.7 Cardiomegaly; I77.810 Thoracic aortic ectasia
CPT/HCPCS: 36415; 71275; 78452; 80048; 80053; 80061; 80076; 93005; 93270; 93306; 96361; 96374; 99285; 81003; 83036; 83735; 83880; 84439; 84443; 84484; 85025; 85379; 85610; 85730; 93010; 93017; 99223; 99232; 99238; G0378; J1644; J2785; J3490

== ENCOUNTER 2022-10-24 07:41 | Outpatient (CLI) | payer MEDICARE, MEDICAID, SELFPAY ==
--- NOTE | 2022-10-24 08:34 | W.CARDEVENT ---
Date of service: 10/24/22 Time of Service: 08:34 Cardiac Event Recorder Referring Provider:: Jose Antonio Palomo Indications:: Chest pain Cardiac Event Note: This is a cardiac event monitor reportedly ordered for chest pain. Patient was monitored for 28 days and 11 hours Rhythm throughout was sinus. Average heart rate was 77. Minimum was 45, maximum 127. There was no atrial fibrillation, no SVT, no high-grade AV block, no pauses greater than 3 seconds There were no significant ventricular dysrhythmias. Episodes labeled second-degree AV block were in fact sinus bradycardia, rate 50 Patient symptoms of passed out correlated with sinus rhythm in the 90s
== END 2022-10-24 07:42 | disposition home or self-care (01) ==
LOC: CARDOPNVT 07:41
PROVIDERS: PCP Nurse Practitioner Family; Visit Provider Internal Medicine Cardiovascular Disease
DX: R07.9 Chest pain, unspecified (principal); R00.1 Bradycardia, unspecified
CPT/HCPCS: 93272

== ENCOUNTER → 2023-05-09 09:23 | Outpatient (BNVA) | payer MEDICARE, MEDICAID, SELFPAY | PROVIDERS: PCP Nurse Practitioner Family; Referring Provider Nurse Practitioner Family; Visit Provider Podiatrist | DX: L60.3 Nail dystrophy (principal); B35.1 Tinea unguium; E11.9 Type 2 diabetes mellitus without complications; M79.674 Pain in right toe(s); M79.675 Pain in left toe(s); I83.893 Varicose veins of bilateral lower extremities with other complications | CPT/HCPCS: 11721 ==

== ENCOUNTER 2023-10-03 12:35 | Outpatient (REF) | payer MEDICARE, MEDICAID, SELFPAY ==
--- NOTE | 2023-10-03 11:45 | PAPFT_PTH ---
PATIENT: Marsha Beaulieu LOC: [facility] U#:[id number] AGE/SX: 68/F ROOM: RE10/03/[address]: Jose Antonio Castaneda DNP : 1955 BED: DIS: 10/03/2023 SPEC #: [id number] RECD: 10/04/23 13:15 STATUS: JOSEMANUEL REQ #: [id number] BERNIE: 10/03/23 11:[address]: Jose Antonio Ivey DEPT: [facility] Cytology RECD BY: Lizeth Zuniga Tissues: 1 - CX/ENDOCX FOR PAP SMEARS Procedures: PAP THIN PREP/UVM Screening Comments: [id number] (UNSATISFACTORY FOR EVALUATION)
--- OUTSIDE RECORDS SUMMARY | 2023-10-03 12:37 | XMS_ITS | Encounter Summary ---
Author Organization [facility] Address [address] [facility] [place] [address] Care Team Providers Care Supervisor Wall Mirror Department Name Role Phone Murphy Stewart MD Primary Care Provider [phone] Reason for Visit * Reason Onset Date Comments Medication Refill 02/05/2017 Encounter Details Date Type Department Care Team (Late st Contact Info) Description 02/05/[address] [facility] [address] [place] [address] Manfred Richardson MD [address] [facility] [place] [address] Social History Tobacco Use Types Packs/Day Years Used Date Smoking Tobacco: Never Smokeless Tobacco: Never Alcohol Use Standard Drinks/Week Comments Not Asked 0 (1 standard drink = 0.6 oz pur e alcohol) Sex and Gender Information Value Date Recorded Sex Assigned at Not on file Gender Identity Not on file Sexual Orientation Not on file documented as of this encounter Plan of Treatment Not on file documented as of this encounter Visit Diagnoses Not on filedocumented in this encounter Care Teams Supervisor Wall Mirror Department Relationship Specialty Start Date End Date Murphy Stewart MD [address] [place] [address] PCP - General 09/05/10 03/05/22 documented as of this encounter
--- OUTSIDE RECORDS SUMMARY | 2023-10-03 12:37 | XMS_ITS | Encounter Summary ---
Author Organization [facility] Address [facility] [place] [address] Care Team Providers Care Injection Machine Operator Name Role Phone Murphy Stewart MD Primary Care Provider [phone] Reason for Visit * Reason Comments Dermatitis * Consultation (Routine) - Closed Specialty Diagnoses / Procedures Referred By Elia alvarado Referred To Contact Dermatology Milind Riggs MD [facility] [place] [address] [facility] Dermatology [address] [place] [address] Referral ID Status Reason Start Date Expiration Date V isits Requested Visits Authorized [id number] Closed Consult, Test & Treat 08/29/2016 08/29/2017 1 1 Encounter Details Date Type Department Care Team (Late st Contact Info) Description 09/01/2016 11:45 AM EDT Office Visit Dermatology at [facility] [address] [place] [address] [facility] [address] [place] [address] Stasis dermatitis, acute Social History Tobacco Use Types Packs/Day Years Used Date Smoking Tobacco: Never Alcohol Use Standard Drinks/Week Comments Not Asked 0 (1 standard drink = 0.6 oz pur e alcohol) Sex and Gender Information Value Date Recorded Sex Assigned at Not on file Gender Identity Not on file Sexual Orientation Not on file documented as of this encounter Patient Instructions * Patient Instructions* Vida Carbajal CMA - 09/01/2016 11:45 AM EDT Wet Dressings: - Discussed with patient the purpose of wet dressings - they provide relief of itch, reduce inflammation by cooling, and help remove scales - - Discussed with patient that wet dressing are not soaks; they provide a moist covering that cools the skin as the dressing dries and the water evaporates - I reviewed with the patient the following instructions on how to use the wet dressin. Apply prescription topical corticosteroid (triamcinolone ointment 0.1%) to affected areas of theskin 2. Wrap area with a wet compress/dressing ?? To make compress/dressing use thin, clean 100% cotton cloth, such as long- sleeve and long-legs pajamas, T-shirt, old sheet, or pillow case. Nothing too heavy ?? Wet the dressing by dipping it in tap water at room temperature. Wring it out by squeezing untilthe dressing is soaked, but not dripping. ?? Roll/wrap/place the dressing onto the affected area. Secure with a loose tie ?? Do NOT cover the dressing with plastic or rubber. The dressing works by cooling as the air evaporates the water. (You may use a plastic covering over furniture to protect against moisture ?? You CAN place warm blankets over the dressings for your comfort if necessary 3. Leave the wrap on affected areas for 30 minutes as tolerated 4. Remove the dressing and reapply the prescription corticosteroid to the affected area 5. Do this twice a day, with at least 30-45 minutes between changes documented in this encounter Progress Notes * Vida Carbajal CMA - 09/01/2016 11:45 AM EDT DERMATOLOGY NEW PATIENT CLINIC NOTE Date of service: 09/01/2016 Marsha Beaulieu : 1955 Provider: Amelie Palma MD Chief Complaint Patient presents with ??? Dermatitis ROS General: feeling well Skin: denies other skin complaints Breast feeding:no Trying to get :no PMH: Any chronic medical conditions: none SKIN HX: none SH: Tobacco: never ETOH: no ADR: Allergies Allergen Reactions ??? Amoxicillin Trihydrate rash, hives ??? Cis Free Text Allergy PNV--RASH VITAMIN. ??? Erythromycin Base ??? Lidocaine heart races, palpitations,chest pains ??? Mepivacaine Hcl heart races, palpitations, chest pains ??? Penicillins MEDS: Current Outpatient Prescriptions Medication Sig Dispense Refill ??? cephalexin (KEFLEX) 500 mg Capsule Take 1 capsule by mouth 4 times daily for 10 days. 40 capsule 0 ??? aspirin 81 mg EC tablet Take 81 mg by mouth daily. No current facility-administered medications for this visit. HPI Marsha Beaulieu is a 61 y.o. year old female. New Patient to me. Patient is here for a rash on her B/L upper extremities and left lower leg. Patient is here with her Victoria (daughter). Patient states that the rash started on the left lower leg in May and the arms started in June.Patient's daughter states that she brought her mom to the ED on 08/29/16 and was given keflex 500 mg. Examination General: Appears well, no distress - examination of the left lower leg , b/l upper extremities, back and chest Assessment and Plan: # Stasis dermatitis with ID reaction -wet dressings to amplify steroid effect - continue prednisone 20 ng bid x 7 days -D/C Cephalexin RX: triamcinolone 0.1% ointment applied under occlusion Doxycycline 100 mg bid x 7 days -Important to treat underlying stasis -leg elevation - support hose 20-20 mmh Procedure: # Culture of right forearm done today Instructions: Follow up: 1 week, pt made appointment for 09/11 Handout: see avs I am documenting this encounter acting as the scribe for and in the presence of Dr.Lucas Vida Carbajal [facility] I performed the above scribed service and agree with the accuracy of the documentation in this encounter. Amelie Palma MD Section of Dermatology [facility] documented in this encounter Plan of Treatment Not on file documented as of this encounter Procedures Procedure Name Priority Date/Time Associated Diagnosis Comments SKIN/SUP WOUND CULTURE Routine 09/01/2016 12:51 PM EDT Stasis dermatitis, acute documented in this encounter Results * (ABNORMAL) Skin/Superficial Wound Culture Arm, Right (09/01/2016 12:51 PM EDT) Skin/Superfic ial Wound Culture Rare Flavimonas oryzihabitans (Pseudomonas oryzihabitans) Rare mixed bacterial morphotypes suggestive of normal cutaneous saloni (A) [facility] Gram Stain No WBC's seen. No microorganisms seen. (A) [facility] Organism Flavimonas oryzihabitans (Pseudomonas oryzihabitans)(A) [facility] Swab from superficial wound (specimen) STRUCTURE OF RIGHT UPPER LIMB / Unknown 09/01/2016 12:51 PM EDT 09/01/2016 4:17 PM EDT Narrative Resulting Agency Comment Spec In Lab Organism Antibiotic Method Susceptibility FLAVIMONAS oryzihabitans Aztreonam MICROSCAN METHOD Resistant FLAVIMONAS oryzihabitans Ceftazidime MICROSCAN METHOD Sensitive FLAVIMONAS oryzihabitans Ceftriaxone MICROSCAN METHOD Intermediate FLAVIMONAS oryzihabitans Ciprofloxacin MICROSCAN METHO D Sensitive FLAVIMONAS oryzihabitans Gentamicin MICROSCAN METHOD Sensitive FLAVIMONAS oryzihabitans Levofloxacin MICROSCAN METHOD Sensitive FLAVIMONAS oryzihabitans Meropenem MICROSCAN METHOD Sensitive FLAVIMONAS oryzihabitans Piperacillin/Tazobactam MICRO SCAN METHOD Sensitive FLAVIMONAS oryzihabitans Tetracycline MICROSCAN METHOD Sensitive FLAVIMONAS oryzihabitans Tobramycin MICROSCAN METHOD Sensitive FLAVIMONAS oryzihabitans Trimethoprim/Sulfa MICROSCAN METHOD Sensitive Amelie Palma MD MICROBIOLOGY - GENER AL ORDERABLES [facility] [place] [address] documented in this encounter Visit Diagnoses Diagnosis Stasis dermatitis, acute Varicose veins of lower extremities with inflammation documented in this encounter Care Teams Injection Machine Operator Relationship Specialty Start Date End Date Murphy Stewart MD [address] [place], [place] [id number] [address] [place] [address] PCP - General 09/05/10 03/05/22 documented as of this encounter
--- OUTSIDE RECORDS SUMMARY | 2023-10-03 12:37 | XMS_ITS | Encounter Summary ---
Author Organization [facility] Address [facility] [place] [address] Care Team Providers Care Presiding Steward Name Role Phone Jose Antonio Palomo DNP Primary Care Provider [phone] Encounter Details Date Type Department Care Team (Late st Contact Info) Description 07/20/2022 Ancillary Procedure [place] [id number] Maia Tyler MD [facility] [place] [address] Social History Tobacco Use Types Packs/Day Years [...] Procedure Name Priority Date/Time Associated Diagnosis Comments FILM LIBRARY STORAGE ONLY CT ABDOMEN AND PELVIS Routine 07/20/2022 12:00 AM EDT documented in this encounter Results * Film Library- Storage Only CT Abdomen & Pelvis (07/20/2022 12:00 AM EDT) Narrative [facility] - 07/22/2022 4:42 PM EDT This exam is auto-finalizing. It's purpose is for storage only. Maia Tyler MD IMG FILM LIBRARY ORDERABLES [place], [place] documented in this encounter Visit Diagnoses Not on filedocumented in this encounter Care Teams Presiding Steward Relationship Specialty Start Date End Date Jose Antonio Palomo DNP PCP - General Family Medicine 03/06/22 documented as of this encounter
--- OUTSIDE RECORDS SUMMARY | 2023-10-03 12:37 | XMS_ITS | Encounter Summary ---
Author Organization [facility] Address [facility] [place] [address] Care Team Providers Care Trouble Clerk Name Role Phone Jose Antonio Palomo DNP Primary Care Provider [phone] Encounter Details Date Type Department Care Team (Late st Contact Info) Description 07/22/2022 4:45 PM EDT Ancillary Procedure [place] [phone] Maia Tyler MD [facility] [place] [address] Social History Tobacco Use Types Packs/Day Years [...] STORAGE ONLY CT ABDOMEN AND PELVIS Routine 07/22/2022 4:43 PM EDT documented in this encounter Results * Film Library- Storage Only CT Abdomen & Pelvis (07/22/2022 4:43 PM EDT) Narrative RAD - 07/22/2022 4:43 PM EDT This exam is auto-finalizing. It's purpose is for storage only. Maia Tyler MD IMG FILM LIBRARY ORDERABLES [facility] [place], [place] documented in this encounter Visit Diagnoses Not on filedocumented in this encounter Care Teams Trouble Clerk Relationship Specialty Start Date End Date Jose Antonio Palomo DNP PCP - General Family Medicine 03/06/22 documented as of this encounter
--- OUTSIDE RECORDS SUMMARY | 2023-10-03 12:37 | XMS_ITS | Encounter Summary ---
Author Organization [facility] Address [facility] [place] [address] Care Team Providers Care Soft Sugar Supervisor Name Role Phone Murphy Stewart MD Primary Care Provider [phone] Reason for Visit * Reason Comments Follow-up Encounter Details Date Type Department Care Team (Late st Contact Info) Description 09/20/2016 9:30 AM EDT Office Visit Dermatology at [facility] [address] [place] [address] Saad Church MD [facility] [address] [place] [address] Iman Coleman PA [facility] [address] [place] [address] Cellulitis of left lower extremity; Dermatitis Social History Tobacco Use Types Packs/Day Years Used Date Smoking Tobacco: Never Alcohol Use Standard Drinks/Week Comments Not Asked 0 (1 standard drink = 0.6 oz pur e alcohol) Sex and Gender Information Value Date Recorded Sex Assigned at Not on file Gender Identity Not on file Sexual Orientation Not on file documented as of this encounter Patient Instructions * Patient Instructions* Leanna Chen - 09/20/2016 9:30 AM EDT Sensitive Skin Care You have been diagnosed with a condition that requires a sensitive skin care regimen. It is very important to follow this plan as outlined below. ?? Discontinue ALL personal products. ?? Take short, cool showers. Use soap only where absolutely needed. Pat skin dry. ?? Immediately after bathing, apply moisturizing cream to body. ?? Soap: Vanicream bar soap ?? Shampoo and Conditioner: Free&Clear shampoo, Free&Clear conditioner ?? Moisturizer: Vaseline ?? Laundry Detergent: ALL Free&Clear. Do not use fabric softener or dryer sheets. ?? Triamcinolone 0.1%, apply to affected areas twice daily until follow up visit in 2 weeks. - Rx: Prednisone taper. 60mg each morning x 5 days, then 40mg each morning x 5 days, then 20mg eachmorning x 5 days. - Rx Doxycyline 100mg, take one tablet by mouth twice daily for 4 weeks. Follow up in 2 weeks documented in this encounter Progress Notes * Saad Church MD - 09/20/2016 9:30 AM EDT Patient seen and examined. Bright red well demarcated LLE, scattered bright pink scaly excoriated plaques on BUE upper back c/w eczematous dermatitis. Suspect cellulitis with secondary eczematous change and ID reaction. Will put her on 2 weeks of oral abx, 2 week steroid taper and sensitive skin regimen. Patient seen in conjunction with Iman Coleman PA-C Signed by: SAAD CHURCH MD Section of Dermatology [facility] * Iman Coleman PA - 09/20/2016 9:30 AM EDT Images from the original note were not included. DERMATOLOGY - ESTABLISHED PATIENT FOLLOW-UP Date of service: 09/20/2016 Marsha Beaulieu : 1955 Dermatology Physician Gum Machine Filler Note: Iman Coleman PA-C Chief Complaint Patient presents with ??? Follow-up This is an established patient, last seen by Amelie Palma MD on 09/01/2016. HPI: This pt. presents for follow-up of presumed stasis dermatitis with ID reaction. Flaring worse todayon left lower leg, arms and now on chest, abdomen and back. Last seen by Dr. Palma 2 wks ago for suspected cellulitis of left lower leg, referred by ED. Was given: -wet dressings to amplify steroid effect - continue prednisone 20 ng bid x 7 days -D/C Cephalexin RX: triamcinolone 0.1% ointment applied under occlusion Doxycycline 100 mg bid x 7 days -Important to treat underlying stasis -leg elevation - support hose 20-20 mmh She finished her prednisone taper and the redness in her skin improved but returned upon d/c. Took Doxycyline and tolerated well. She is applying an old prescription of topical steroid BID that her PCP gave her because she was unable to get her triamcinolone cream until yesterday. She had been wearing compression stockings however her legs have been hurting so bad the last couple days so she hasn't been wearing them. She is trying to elevate and put ice on them. H/o hand eczema as a child, seasonal allergies. Endorses sensitive dry skin. Uses her scented shampoo as her body wash w/ hot water. Skin is very itchy, she picks at it. Has seen vascular surgery in the past for venous varicosities of left lower leg and was recommendedto have have vein stripping procedure; no joint replacements on that side. Says she has had some trouble w/ rash on her left lower leg for many years but never this bad untilhot coffee was spilled on the area in May 2016. Skin History: Stasis dermatitis Cellulitis Medical History: Patient Active Problem List Diagnosis Code ??? Hyperlipidemia E78.5 ??? Varicose veins I83.90 Medications: Current Outpatient Prescriptions Medication Sig Dispense Refill ??? triamcinolone (KENALOG) 0.1 % Ointment Apply topically 2 times daily. 80 g 3 ??? predniSONE (DELTASONE) 20 mg Tablet TAKE TWO TABLETS BY MOUTH DAILY 0 ??? aspirin 81 mg EC tablet Take 81 mg by mouth daily. No current facility-administered medications for this visit. Allergies: Allergies Allergen Reactions ??? Amoxicillin Trihydrate rash, hives ??? Cis Free Text Allergy PNV--RASH VITAMIN. ??? Erythromycin Base ??? Lidocaine heart races, palpitations,chest pains ??? Mepivacaine Hcl heart races, palpitations, chest pains ??? Penicillins Procedure screening: Allergies to lido/epi: yes - heart races when used at dentist Defibrillator: no Review of Systems: - General: Feels well. - Skin: As per HPI; no other skin concerns. Examination: - Constitutional: Patient was alert, well-appearing and in no noticeable distress. - Skin: A full skin examination was performed. This includes the head, neck, face and scalp including behind the ears. The chest, abdomen, back, and axillae, as well as the arms, hands, palms, fingers. Legs, feet, toes and soles were also examined. Buttocks and breasts were also examined with patient consent. Genitalia were not examined. - Skin Type: 2 Specific skin findings/Diagnosis/Assessment/Treatment Plan: 1. Severe eczematous flare with favored secondary cellulitis of the left lower leg - Exuberant excoriated confluent eczematous plaques left lower legs, thighs, arms, chest, abdomen, low back; edema and warmth of the left lower extremity; prominent Venous varicosity of the left lower leg. - For maintenance sensitive skin care is essential. Reviewed sensitive skin care diet: short luke-warm showers/baths, mild soap only in dirty areas, pat dry, heavy moisturization following bathing and several other times daily with bland lotion, free and clear laundry soap, no dryer sheets or laundry additives. Reviewed list of recommended skin products. Handout given to patient. - Recommend Vaseline and Vanicream products only until follow up visit. - Start Triamcinolone 0.1% ointment (pt now has at home as of today), apply to affected areas twicedaily until follow up visit in 2 weeks. Prescriptions: - Rx: Prednisone taper. 60mg each morning x 5 days, then 40mg each morning x 5 days, then 20mg eachmorning x 5 days. Reviewed side effects, including but not limited to GI upset, mood change, irritability, difficulty sleeping, increases in blood pressure, increase in blood sugar, thinning of skin and bones, osteonecrosis of the hip. - Rx Doxycyline 100mg, take one tablet by mouth BID for 4 weeks. Reviewed side effects of medication. Advised patient to take with full meal, not to lie down for 30 mins after taking and to wear sunscreen diligently, avoiding the sun when possible. Advised patient of interaction with calcium, iron,and MVI. Pictures (Picture(s) taken and charted w/ pt consent): Figure 1 At least half of this 30 min appointment was spent [id number] in counseling with this patient. Wediscussed pathophysiology, diagnosis, treatment, concerns, expectations and follow-up with regard to the patient's diagnosis. I also addressed the patient's concerns and answered questions with regard to the above. LOS: [id number] Follow up in 2 weeks, sooner if needed. Appointment scheduled upon exiting. Instructed to call if problems arise. Note initiated by ROBERT CHI, Clinical Scribe - I am documenting this encounter acting as the scribe for and in the presence of Iman Coleman PA-C I performed the above scribed service and agree with the accuracy of the documentation in this encounter. Reviewed and signed by Iman Coleman PA-C Dermatology [facility] Patient seen with direct supervision of Attending Physician: Saad Church MD Section of Dermatology [facility] documented in this encounter Plan of Treatment Not on file documented as of this encounter Visit Diagnoses Diagnosis Cellulitis of left lower extremity Cellulitis and abscess of leg, except foot Dermatitis Contact dermatitis and other eczema, due to unspecified cause documented in this encounter Care Teams Soft Sugar Supervisor Relationship Specialty Start Date End Date Murphy Stewart MD [address] [place] [address] PCP - General 09/05/10 03/05/22 documented as of this encounter
--- OUTSIDE RECORDS SUMMARY | 2023-10-03 12:37 | XMS_ITS | Clinical Summary ---
Author Organization [facility] Address [facility] [place] [address] Care Team Providers Care Curriculum And Instruction Director Name Role Phone Jose Antonio Palomo DNP Primary Care Provider Allergies Active Allergy Reactions Criticality Noted Date Comments Amoxicillin Trihydrate rash, hives Cis Free Text Allergy PNV--RASH VITAMIN. Erythromycin Base Lidocaine heart races, palpitations,chest pains Mepivacaine Hcl heart races, palpitations, chest pains Penicillins Medications Medication Sig Dispensed Refills Start Date End Date Status aspirin 81 mg EC tablet Take 81 mg by mouth daily. Active predniSONE (DELTASONE) 20 mg TabletIndications:De rmatitis Take in the AM: 3 tabs x 5 days, then 2 tabs x 5 days, then 1 tab x 5 days 30 tablet 09/20/2016 Active Additional Information Patient not taking.Reported on 10/03/2018 doxycycline monohydrate (MONODOX) 100 mg CapsuleIndications:C ellulitis of left lower extremity Take 1 capsule by mouth 2 times daily. 60 capsule 09/20/2016 Active Additional Information Patient not taking.Reported on 10/03/2018 augmented betamethasone dipropionate (DIPROLENE-AF) 0.05 % Cream Apply 50 g 3 11/16/2016 Active Additional Information Patient not taking.Reported on 10/03/2018 triamcinolone (KENALOG) 0.1 % Ointment Apply topically 2 times daily. 80 g 3 02/05/2017 Active lactobacillus rhamnosus, GG, (CULTURELLE) 10 billion cell Capsule Take 1 capsule by mouth daily. Active multivitamin Capsule Take 1 capsule by mouth daily. Active Active Problems Problem Noted Date Diagnosed Date Hyperlipidemia 09/05/2010 Varicose veins 09/05/2010 Social History Tobacco Use Types Packs/Day Years Used Date Smoking Tobacco: Never Smokeless Tobacco: Never Alcohol Use Standard Drinks/Week Comments Not Asked 0 (1 standard drink = 0.6 oz pur e alcohol) Sex and Gender Information Value Date Recorded Sex Assigned at Not on file Gender Identity Not on file Sexual Orientation Not on file Last Filed Vital Signs Vital Sign Reading Time Taken Comments Blood Pressure 126/63 08/29/2016 8:00 PM EDT Pulse 75 08/29/2016 8:30 PM EDT Temperature 36.6 ??C (97.9 ??F) 08/29/2016 6:30 PM ED T Respiratory Rate 18 08/29/2016 8:30 PM EDT Oxygen Saturation 98% 08/29/2016 8:30 PM EDT Inhaled Oxygen Concentration - - Weight 73.9 kg (163 lb) 08/29/2016 4:04 PM EDT Height 154.9 cm (5' 1) 09/05/2010 1:47 PM EDT Body Mass Index 30.8 09/05/2010 1:47 PM EDT Plan of Treatment Health Maintenance Due Date Last Done Comments CT Colonography 1955 Colonoscopy 1955 Colorectal Cancer Screening 1955 FIT DNA 1955 FIT 1955 Sigmoidoscopy (10 year) with FIT yearly 1955 Sigmoidoscopy 1955 Hepatitis C Screening 06/04/1975 Tdap adult 1976 Tetanus vaccine 1976 HPV test 06/04/1987 PAP Smear 06/04/1987 Breast Cancer Share Decision Needed 1997 Zoster vaccine (1 of 2) 06/04/2007 Advance Directive 2012 Breast Cancer screening 09/05/2012 09/05/2010 Bone Density Scan 2022 Pneumoccocal Vaccine: 65+ (1 of 1 - PCV) 2022 Covid-19 Vaccine (1 - 2022-24 season) 2022 Influenza (Flu) vaccine (1 o f 1 - Influenza standard series) 10/21/2023 Procedures Procedure Name Priority Date/Time Associated Diagnosis Comments MAMMO SCREENING CAD BILATERAL Routine 09/05/2010 9:46 AM EDT from Last 3 Months or Most Recently Relevant to Health Maintenance Results * MAMMO DIGITAL BILATERAL SCREENING WITH CAD (09/05/2010 9:46 AM EDT) Anatomical Region Laterality Modality Breast Bilateral Mammography 09/05/2010 9:46 AM EDT Narrative 09/07/2010 8:08 AM EDT REASON FOR EXAM: Screening ?? TECHNIQUE: Cranio-caudal (CC) and mediolateral oblique (MLO) views of both breasts obtained with direct digital capture. The exam was evaluated by CAD Version 8.3.17. ?? RIGHT BREAST MAMMOGRAPHY ?? This is an indeterminate (ACR Category 0) mammogram of the Right breast. There is an area of focal asymmetry in the lower, inner Right breast, requiring additional imaging. ? LEFT BREAST MAMMOGRAPHY ?? This is a negative mammogram (ACR Category 1). There is a stable fibroglandular pattern without significant change as compared to prior studies. There is no mammographic evidence of cancer. ? The breasts are predominantly fatty. ? CONCLUSION ?? ASSESSMENT IS INCOMPLETE: Additional imaging recommended (ACR Category 0) of the Right breast. [facility] will contact the patient to schedule additional imaging. ?? The contralateral breast is NEGATIVE (ACR Category 1). Routine screening mammography is recommended of the Left breast with the frequency dependent on the patient's age and breast cancer risk factors. Procedure Note Lucinda Borrero MD - 09/07/2010 REASON FOR EXAM: Screening TECHNIQUE: Cranio-caudal (CC) and mediolateral oblique (MLO) views of both breasts obtained with direct digital capture. The exam was evaluated byCAD Version 8.3.17. RIGHT BREAST MAMMOGRAPHY This is an indeterminate (ACR Category 0) mammogram of the Right breast.There is an area of focal asymmetry in the lower, inner Right breast, requiring additional imaging. LEFT BREAST MAMMOGRAPHY This is a negative mammogram (ACR Category 1). There is a stablefibroglandular pattern without significant change as compared to prior studies. There isno mammographic evidence of cancer. The breasts are predominantly fatty. CONCLUSION ASSESSMENT IS INCOMPLETE: Additional imaging recommended (ACR Category 0)of the Right breast. The [facility] will contact the patient to schedule additional imaging. The contralateral breast is NEGATIVE (ACR Category 1). Routine screening mammography is recommended of the Left breast with the frequency dependenton the patient's age and breast cancer risk factors. Murphy Stewart MD IMG MAMMO ORDERABLES from Last 3 Months or Most Recently Relevant to Health Maintenance Care Teams Curriculum And Instruction Director Relationship Specialty Start Date End Date Jose Antonio Palomo DNP PCP - General Family Medicine 03/06/22
--- OUTSIDE RECORDS SUMMARY | 2023-10-03 12:37 | XMS_ITS | Encounter Summary ---
Author Organization [facility] Address [facility] [place] [address] Care Team Providers Care Records Management Manager Name Role Phone Murphy Stewart MD Primary Care Provider [phone] Reason for Visit * Reason Comments Dermatitis Encounter Details Date Type Department Care Team (Late st Contact Info) Description 10/16/2016 11:30 AM EDT Office Visit Dermatology at [facility] [address] [place] [address] Manfred Richardson MD [address] [facility] [place] [address] Allergic contact dermatitis, unspecified trigger Social History Tobacco Use Types Packs/Day Years Used Date Smoking Tobacco: Never Alcohol Use Standard Drinks/Week Comments Not Asked 0 (1 standard drink = 0.6 oz pur e alcohol) Sex and Gender Information Value Date Recorded Sex Assigned at Not on file Gender Identity Not on file Sexual Orientation Not on file documented as of this encounter Progress Notes * Manfred Richardson MD - 10/16/2016 11:30 AM EDT Patient is established to this clinic, but new to me. Chief Complaint: Eczema f/u - no change History of Present Illness Marsha Beaulieu is a 61 y.o. female History of eczematous dermatitis that started acutely on her left leg in May 2016 after spilling coffee on her left leg and subsequently spread to her upper extremities in June 2016 and to her trunk in Jul 2016. Mildly to moderately pruritic red scaly rashes. No known triggers after that initial trauma. Currently, using TAC bid prn itching which helps control symptoms but the rash persists; tryingto use vanicream soap and tide ultra hypoallergenic detergent but is not able to afford it and her daughter was going to buy it for her and she found dryer sheets in her laundry that was done by her daughter. Tolerated well the prednisone taper and doxycycline courses the last month; treated for stasis dermatitis and eczema with secondary cellulitis since Aug 2016. However, she reports no change. Review of her history shows no history of eczema or atopic tendencies. Possible use of new laundry detergent around May 2016 and she continues to have exposure to dryer sheets. No new medications; only using ASA prior to onset. Never been patch tested or biopsied. Interval Changes in Medications and Medical, Surgical Family, and Social Histories Since Last Visit09/20/2016: No significant and pertinent interval changes. Allergies Allergies Allergen Reactions ??? Amoxicillin Trihydrate rash, hives ??? Cis Free Text Allergy PNV--RASH VITAMIN. ??? Erythromycin Base ??? Lidocaine heart races, palpitations,chest pains ??? Mepivacaine Hcl heart races, palpitations, chest pains ??? Penicillins Medications ??? predniSONE (DELTASONE) 20 mg Tablet ??? doxycycline monohydrate (MONODOX) 100 mg Capsule ??? triamcinolone (KENALOG) 0.1 % Ointment ??? aspirin 81 mg EC tablet Social History Tobacco use - never Alcohol use - unknown Review of Systems Significant for no pertinent and acute changes in constitutional, other skin, musculoskeletal systems upon specific queries. Examination Standby: Lizeth Pedraza, Clinical Scribe Mood is appropriate. Well developed, well-nourished in no apparent distress, alert and oriented to time, person, place and situation. Skin Type: II. Patient was asked to disrobe to the level of comfort. Examination of the head - including the scalp, face, ears, nose - neck, chest, abdomen, back, axillae, upper and lower extremities significant for the following: ?? Dull [id number] red diffuse patch with peripheral scale on the left anteromedial ankle and leg; dull red, well-demarcated, lichenified, thin patches with peripheral scale and scattered erosionson the dorsum forearms and wrists - sharp demarcation at the wrists - pink, scaly, eroded papules on the arms, and chest; diffuse, pink patch on the mid chest. Procedure JARED prep of skin scrapings negative for fungal elements. Assessment and Plan Allergic Contact Dermatitis No change. AJRED negative. Eczematous dermatitis with sharp demarcation at wrists and no axillary involvement. Strongly suspicious for ACD over drug or stasis with Id reaction. Recommend focus on avoidance of potential allergens. Counseled: differential above, possible allergens - including laundry detergent - given location, diagnostic testing options, including BRITTON patch testing and limited utility of punch biopsy. Answered all questions. ?? Continue triamcinolone bid prn itching ?? Start Zyrtec 10mg po qAM ?? Discontinue present laundry detergent and stop dryer sheet use ?? Handout on hypoallergenic products given to the patient - ie, hypoallergenic soap and detergent strongly recommended; sample of soap given to the patient. ?? May use Vaseline or cerave to moisturize. ?? Consider NBUVB therapy 2-3 x per week; patient to consider but expensive. Recommend BRITTON patch testing. Counseled: patch testing, process, risk of blistering due to adhesive, keep back dry for 5 days to keep wells against skin and avoid washing off skin marker, interpretation (relevant v irrelevant v unknown positives, cross reactions, and false negatives). Must be off an tihistamines 2w prior to testing. Answered all questions. Handout given. Patient to schedule. Follow-up: 4 weeks; appointment made before exiting. If back improved, will patch test with BRITTON series. Note initiated by ROBERT SWEENEY, Clinical Scribe has performed the documentation for this encounter in the presence of and acting as a scribe for Dr. Richardson. I performed the above scribed service and agree with the accuracy of the documentation in this encounter. Manfred Richardson MD FAAD Section of Dermatology [facility] documented in this encounter Plan of Treatment Not on file documented as of this encounter Visit Diagnoses Diagnosis Allergic contact dermatitis, unspecified trigger documented in this encounter Care Teams Records Management Manager Relationship Specialty Start Date End Date Murphy Stewart MD [address] [place] [address] PCP - General 09/05/10 03/05/22 documented as of this encounter
--- OUTSIDE RECORDS SUMMARY | 2023-10-03 12:37 | XMS_ITS | Encounter Summary ---
Author Organization [facility] Address [facility] [address] [place] [address] Care Team Providers Care Director Of Aviation Name Role Phone Murphy Stewart MD Primary Care Provider [phone] Encounter Details Date Type Department Care Team (Late st Contact Info) Description 09/13/2016 Telephone Dermatology at [facility] [address] [place] [address] Amelei Palma MD [facility] [address] [place] [address] Social History Tobacco Use Types Packs/Day Years Used Date Smoking Tobacco: Never Alcohol Use Standard Drinks/Week Comments Not Asked 0 (1 standard drink = 0.6 oz pur e alcohol) Sex and Gender Information Value Date Recorded Sex Assigned at Not on file Gender Identity Not on file Sexual Orientation Not on file documented as of this encounter Miscellaneous Notes * Telephone Encounter - Missy Clinton - 09/13/2016 12:01 PM EDT Patient called for refill of triamcinolone (KENALOG) 0.1 % Ointment and Doxycycline 100 mg. You last saw this patient on 09/01/16. The patient would like there RX sent to [facility] in [facility].Let me known if i can further assist, i will call patient to follow up. documented in this encounter Plan of Treatment Not on file documented as of this encounter Visit Diagnoses Not on filedocumented in this encounter Care Teams Director Of Aviation Relationship Specialty Start Date End Date Murphy Stewart MD [address] [place] [address] PCP - General 09/05/10 03/05/22 documented as of this encounter
--- OUTSIDE RECORDS SUMMARY | 2023-10-03 12:37 | XMS_ITS | Encounter Summary ---
Author Organization [facility] Address [facility] [place] [address] Care Team Providers Care Transportation Manager Name Role Phone Murphy Stewart MD Primary Care Provider [phone] Encounter Details Date Type Department Care Team (Late st Contact Info) Description 10/10/2016 Telephone Dermatology at [facility] [address] [place] [address] Iman Coleman, PA [facility] [address] [place] [address] Social History Tobacco Use Types Packs/Day Years Used Date Smoking Tobacco: Never Alcohol Use Standard Drinks/Week Comments Not Asked 0 (1 standard drink = 0.6 oz pur e alcohol) Sex and Gender Information Value Date Recorded Sex Assigned at Not on file Gender Identity Not on file Sexual Orientation Not on file documented as of this encounter Miscellaneous Notes * Telephone Encounter - Ana Esteban CMA - 10/11/2016 5:01 PM EDT Patient handled it with her PCP and is all set. * Telephone Encounter - Ruthy Taylor - 10/10/2016 1:41 PM EDT Pt called in and is requesting a referral for transport to her appointment with you on Sunday. The provider needs to fill out the required Medicare form and it can be faxed to [phone]. documented in this encounter Plan of Treatment Not on file documented as of this encounter Visit Diagnoses Not on filedocumented in this encounter Care Teams Transportation Manager Relationship Specialty Start Date End Date Murphy Stewart MD [address] [place] [address] PCP - General 09/05/10 03/05/22 documented as of this encounter
--- OUTSIDE RECORDS SUMMARY | 2023-10-03 12:37 | XMS_ITS | Encounter Summary ---
Author Organization [facility] Address [facility] [address] Care Team Providers Care Electrical Machinist Name Role Phone Murphy Stewart MD Primary Care Provider [phone] Encounter Details Date Type Department Care Team (Late st Contact Info) Description 09/12/2016 Telephone Dermatology at [facility] [address] [place] [address] Iman Coleman, PA [facility] [address] [place] [address] Social History Tobacco Use Types Packs/Day Years Used Date Smoking Tobacco: Never Alcohol Use Standard Drinks/Week Comments Not Asked 0 (1 standard drink = 0.6 oz pur e alcohol) Sex and Gender Information Value Date Recorded Sex Assigned at Not on file Gender Identity Not on file Sexual Orientation Not on file documented as of this encounter Miscellaneous Notes * Telephone Encounter - Kenyon Yi - 09/13/2016 11:52 AM EDT Missy- This is a great one for you to get practice with. This patient is looking for a refill of their triamcinolone 0.1% ointment sent to [facility] in [place]. * Telephone Encounter - Ruthy Taylor - 09/12/2016 3:48 PM EDT Pt called in regarding her script for triamcinolone (KENALOG) 0.1 % Ointment. She called the pharmacy and was told it isn't ready. Would you kindly give her a ring and let her know the status at [phone] documented in this encounter Plan of Treatment Not on file documented as of this encounter Visit Diagnoses Not on filedocumented in this encounter Care Teams Electrical Machinist Relationship Specialty Start Date End Date Murphy Stewart MD [address] [place] [address] PCP - General 09/05/10 03/05/22 documented as of this encounter
--- OUTSIDE RECORDS SUMMARY | 2023-10-03 12:37 | XMS_ITS | Encounter Summary ---
Author Organization [facility] Address [facility] [place] [address] Care Team Providers Care Binder Cutter Name Role Phone Jose Antonio Palomo DNP Primary Care Provider [phone] Encounter Details Date Type Department Care Team (Late st Contact Info) Description 07/20/2022 12:05 AM EDT Ancillary Procedure [place] [phone] Maia Tyler MD [facility] [place] [address] Social History Tobacco Use Types Packs/Day Years [...] Associated Diagnosis Comments FILM LIBRARY STORAGE ONLY ULTRASOUND STUDY Routine 07/20/2022 12:05 AM EDT documented in this encounter Results * Film Library- Storage Only Ultrasound Study (07/20/2022 12:05 AM EDT) Narrative [facility] - 07/22/2022 4:43 PM EDT This exam is auto-finalizing. It's purpose is for storage only. Maia Tyler MD IMG FILM LIBRARY ORDERABLES [place], [place] documented in this encounter Visit Diagnoses Not on filedocumented in this encounter Care Teams Binder Cutter Relationship Specialty Start Date End Date Jose Antonio Palomo DNP PCP - General Family Medicine 03/06/22 documented as of this encounter
--- OUTSIDE RECORDS SUMMARY | 2023-10-03 12:37 | XMS_ITS | Encounter Summary ---
Author Organization [facility] [place] [address] Care Team Providers Care On Site Manager Name Role Phone Murphy Stewart MD Primary Care Provider [phone] Encounter Details Date Type Department Care Team (Late st Contact Info) Description 02/05/2017 Telephone Dermatology at [facility] [address] [place] [address] Manfred Richardson MD [address] [facility] [address] Social History Tobacco Use Types Packs/Day Years [...] encounter Miscellaneous Notes * Telephone Encounter - Catherine Chester LPN - 02/05/2017 2:[address] Richardson refill triamcinolone. * Telephone Encounter - Jonathan Henderson - 02/05/2017 2:39 PM EST Please send a refill for triamcinolone (KENALOG) 0.1 % Ointment Please send to [facility] in [facility] documented in this encounter Plan of Treatment Not on file documented as of this encounter Visit Diagnoses Not on filedocumented in this encounter Care Teams On Site Manager Relationship Specialty Start Date End Date Murphy Stewart MD [address] [place] [address] PCP - General 09/05/10 03/05/22 documented as of this encounter
--- OUTSIDE RECORDS SUMMARY | 2023-10-03 12:37 | XMS_ITS | Encounter Summary ---
Author Organization [facility] [place] [address] Care Team Providers Care Mill Dresser Name Role Phone Murphy Stewart MD Primary Care Provider [phone] Reason for Visit * Reason Comments Follow-up Encounter Details Date Type Department Care Team (Late st Contact Info) Description 11/16/2016 11:30 AM EDT Office Visit Dermatology at [facility] [address] [place] [address] Manfred Richardson MD [address] [facility] [address] Allergic contact dermatitis, unspecified trigger (Primary Dx) Social History Tobacco Use Types Packs/Day Years Used Date Smoking Tobacco: Never Alcohol Use Standard Drinks/Week Comments Not Asked 0 (1 standard drink = 0.6 oz pur e alcohol) Sex and Gender Information Value Date Recorded Sex Assigned at Not on file Gender Identity Not on file Sexual Orientation Not on file documented as of this encounter Patient Instructions * Patient Instructions* Lizeth Pedraza - 11/16/2016 11:30 AM EDT ?? Discontinue oatmeal soap; use Cetaphil or CeraVe. ?? Change to hypoallergenic products only ?? Use Triamcinolone for maintenance only. ?? Start augmented betamethasone twice daily as needed for rash/itching. ?? Continue antihistamine twice daily ?? Recommend BRITTON patch testing. Stop antihistamines 2 weeks before patch test. ?? Return in 4-6 weeks for either a follow-up visit or Patch Testing. documented in this encounter Progress Notes * Manfred Richardson MD - 11/16/2016 11:30 AM EDT Chief Complaint: Dermatitis f/u - worsened History of Present Illness Marsha Beaulieu is a 61 y.o. female History of dermatitis currently using triamcinolone once daily, vaseline once daily, and zyrtec started 2 weeks ago who reports minimal improvement. She reports new eruptions on the breasts bilateralflank, and upper back. Using oatmeal with almond soap. Antecedent History: ?? History of eczematous dermatitis that started acutely [...] Aug 2016. However, she reports no change. ?? Review of her history shows no history of eczema or atopic tendencies. Possible use of new laundry detergent around May 2016 and she continues to have exposure to dryer sheets. No new medications; only using ASA prior to onset. ?? Never been patch tested or biopsied. Interval Changes in Medications and Medical, Surgical Family, and Social Histories Since Last Visit10/16/2016: No significant and pertinent interval changes. Allergies [...] specific queries. Examination Standby: Lizeth Pedraza, Clinical Scribe, Mood is appropriate. Well developed, well-nourished in no apparent distress, alert and oriented to time, person, place and situation. Focused examination of the face, neck, chest, abdomen, back, upper and lower extremities significant for the following: ?? Dull [id number] red diffuse patch with peripheral scale on the left anteromedial ankle and leg; dull red, well-demarcated, lichenified, thin patches with peripheral scale and scattered erosionson the dorsum forearms and wrists - sharp demarcation at the wrists - pink, scaly, eroded papules on the arms, and chest; diffuse, pink patch on the mid chest. ?? Assessment and Plan Allergic Contact Dermatitis No improvement on triamcinolone. ?? Discontinue oatmeal soap; use Cetaphil or CeraVe. ?? Change to hypoallergenic products only. Discussed that natural does not mean hypoallergenic. ?? Discontinue Triamcinolone ?? Start augmented betamethasone bid for flaring. Counseled: risks of topical steroids, including but not limited to atrophy, dyspigmentation. ?? Continue Zyrtec 10 mg twice daily ?? Recommend BRITTON patch testing Follow-up: in 4-6 weeks for patch testing or sooner as needed for worsening or new dermatitis. Patient will be called to schedule. Note initiated by ROBERT SWEENEY, Clinical Scribe, has performed the documentation for this encounter in the presenceof and acting as a scribe for Dr. Richardson. I performed the above scribed service and agree with the accuracy of the documentation in this encounter. Manfred Richardson MD FAAD Section of Dermatology [facility] documented in this encounter Plan of Treatment Not on file documented as of this encounter Visit Diagnoses Diagnosis Allergic contact dermatitis, unspecified trigger- Primary documented in this encounter Care Teams Mill Dresser Relationship Specialty Start Date End Date Murphy Stewart MD [address] [place] [address] PCP - General 09/05/10 03/05/22 documented as of this encounter
--- OUTSIDE RECORDS SUMMARY | 2023-10-03 12:37 | XMS_ITS | Encounter Summary ---
Author Organization [facility] Address [facility] [place] [address] Care Team Providers Care Coding Clerks Supervisor Name Role Phone Murphy Stewart MD Primary Care Provider [phone] Encounter Details Date Type Department Care Team (Late st Contact Info) Description 09/05/2016 Telephone Dermatology at [facility] [address] [place] [address] Amelie Palma MD [facility] [address] [place] [address] Social History Tobacco Use Types Packs/Day Years Used Date Smoking Tobacco: Never Alcohol Use Standard Drinks/Week Comments Not Asked 0 (1 standard drink = 0.6 oz pur e alcohol) Sex and Gender Information Value Date Recorded Sex Assigned at Not on file Gender Identity Not on file Sexual Orientation Not on file documented as of this encounter Miscellaneous Notes * Telephone Encounter - Latha Rock - 09/05/2016 3:02 PM EDT Marsha Beaulieu called to reschedule her appointment on 09/11/16 because her daughter could not bring her. We pushed it out to 09/27/16 because that is when her daughter could bring her. I told her to call if things were not improving and we could get her in sooner but she mentioned she will need a refill of her triamcinolone (KENALOG) 0.1 % Ointment and doxycycline monohydrate (MONODOX) 100 mg Capsule documented in this encounter Plan of Treatment Not on file documented as of this encounter Visit Diagnoses Not on filedocumented in this encounter Care Teams Coding Clerks Supervisor Relationship Specialty Start Date End Date Murphy Stewart MD [address] [place] [address] PCP - General 09/05/10 03/05/22 documented as of this encounter
--- OUTSIDE RECORDS SUMMARY | 2023-10-03 12:37 | XMS_ITS | Encounter Summary ---
Author Organization [facility] Address [facility] [place] [address] Care Team Providers Care Director Merit System Name Role Phone Murphy Stewart MD Primary Care Provider Encounter Details Date Type Department Care Team (Late st Contact Info) Description 09/12/2016 Telephone Dermatology at [facility] [address] [place] [address] Iman Coleman, PA [facility] [address] [place] [address] Social History Tobacco Use Types Packs/Day Years Used Date Smoking Tobacco: Never Alcohol Use Standard Drinks/Week Comments Not Asked 0 (1 standard drink = 0.6 oz pur e alcohol) Sex and Gender Information Value Date Recorded Sex Assigned at Not on file Gender Identity Not on file Sexual Orientation Not on file documented as of this encounter Miscellaneous Notes * Telephone Encounter - Ruthy Taylor - 09/12/2016 3:03 PM EDT Pt called in regarding the script for triamcinolone (KENALOG) 0.1 % Ointment. The daughter reached out to [employer] and it isn't ready. She is inquiring regarding the status. She can be reached at [phone] documented in this encounter Plan of Treatment Not on file documented as of this encounter Visit Diagnoses Not on filedocumented in this encounter Care Teams Director Merit System Relationship Specialty Start Date End Date Murphy Stewart MD [address] [place] [address] PCP - General 09/05/10 03/05/22 documented as of this encounter
--- OUTSIDE RECORDS SUMMARY | 2023-10-03 12:37 | XMS_ITS | Encounter Summary ---
Author Organization [facility] [place] [address] Care Team Providers Care Fisher Line Name Role Phone Murphy Stewart MD Primary Care Provider [phone] Reason for Visit * Reason Comments Follow-up Dermatitis Encounter Details Date Type Department Care Team (Late st Contact Info) Description 12/20/2016 11:30 AM EDT Office Visit Dermatology at [facility] [address] [place] [address] Manfred Richardson MD [address] [facility] [address] Dermatitis (Primary Dx) Social History Tobacco Use Types [...] Progress Notes * Manfred Richardson MD - 12/20/2016 11:30 AM EDT Chief Complaint: dermatitis - about the same, no improvement History of Present Illness Marsha Beaulieu is a 61 y.o. female. History of dermatitis currently using TAC with worsening; tried betamethasone Dipropionate but seemed to make her symptoms worse. Not using dryer sheets and uses Uses All Free and Clear products; however, she does report that she is using natural products and does not see how these may be causingher problems. Antecedent History: ?? History of eczematous dermatitis [...] since Aug 2016. However, she reports no change Review of her history shows no history of eczema or atopic tendencies. Possible use of new laundry detergent around May 2016 and she continues to have exposure to dryer sheets. No new medications; only using ASA prior to onset. Interval changes to Medications and Medical, Family and Social Histories (including alcohol and tobacco use) Since Last Visit 11/16/16: No significant interval history. Allergies Allergies Allergen Reactions ??? Amoxicillin Trihydrate rash, hives ??? Cis Free Text Allergy PNV--RASH VITAMIN. ??? Erythromycin Base ??? Lidocaine heart races, palpitations,chest pains ??? Mepivacaine Hcl heart races, palpitations, chest pains ??? Penicillins Medications ??? augmented betamethasone dipropionate (DIPROLENE-AF) 0.05 % Cream ??? predniSONE (DELTASONE) 20 mg Tablet ??? doxycycline monohydrate (MONODOX) 100 mg Capsule ??? triamcinolone (KENALOG) 0.1 % Ointment ??? aspirin 81 mg EC tablet Social History Tobacco use - never Alcohol use - unknown Review of Systems Significant for no pertinent and acute changes in constitutional, other skin systems upon specific queries. Examination Standby: Kesha Dye, Clinical Scribe Mood is appropriate. Well developed, well-nourished in no apparent distress, alert and oriented to time, person, place and situation. Focused examination of the head - including the scalp, face, ears, nose, lips, tongue, oral mucosa - neck, chest, abdomen, back, axillae, buttocks, pubic area, upper and lower extremities, including the nail plates, significant for the following: ?? [place], slightly lichenified patches on the dorsum hands and forearms; bright red, less than 1 cm papules in various stages of healing - some with central erosions - on the upper back, chest, lower abdomen, upper and lower extremities. No head involvement. No burrows. Assessment and Plan Dermatitis Worsening. Not yet scheduled for patch testing. DDx: ACD favored over scabies Discussed differential diagnosis. Discussed empirically treating for scabies with ivermectin or patch testing. Discussed risks and benefits of punch biopsy; patient defers. Answered all questions. Patient to schedule patch testing. ?? Will schedule for patch testing - BRITTON and personal care products. Previously given handout on patch testing. ?? Continue Triamcinolone cream bid as needed. Instructed to call for refill. ?? Continue Hypersensitive skin care ?? Consider punch biopsy. Patient defers. Follow-up: for patch testing in the next 2-4 weeks or sooner as needed for worsening or new dermatitis. Note initiated by ROBERT DUQUE, Clinical Scribe has performed the documentation for this encounter in the presence of and acting as a scribe for Dr. Richardson. I performed the above scribed service and agree with theaccuracy of the documentation in this encounter. Manfred Richardson MD FAAD Section of Dermatology [facility] documented in this encounter Plan of Treatment Not on file documented as of this encounter Visit Diagnoses Diagnosis Dermatitis- Primary Contact dermatitis and other eczema, due to unspecified cause documented in this encounter Care Teams Fisher Line Relationship Specialty Start Date End Date Murphy Stewart MD [address] [place] [address] PCP - General 09/05/10 03/05/22 documented as of this encounter
--- OUTSIDE RECORDS SUMMARY | 2023-10-03 12:37 | XMS_ITS | Encounter Summary ---
Author Organization [facility] [place] [address] Care Team Providers Care Racker Octave Board Name Role Phone Jose Antonio Palomo TEETEE Primary Care Provider [phone] Reason for Referral * Consultation (Routine) - Closed Specialty Diagnoses / Procedures Referred By Contraj t Referred To Contact Neurology Diagnoses Cervical dystonia Graciela Caro MD [facility] [address] [place] [address] [facility] [address] [place] [phone] Referral ID Status Reason Start Date Expiration Date V isits Requested Visits Authorized [id number] Closed Consult, Test & Treat PCP Updated and/or Approved 03/06/2022 03/06/2023 6 6 Encounter Details Date Type Department Care Team (Late st Contact Info) Description 03/06/2022 Transcribe Orders eDH Incoming Referrals [phone] Graciela Caro MD [facility] [address] [place] [address] Cervical dystonia Social History Tobacco Use Types Packs/Day Years Used Date Smoking Tobacco: Never Smokeless Tobacco: Never Alcohol Use Standard Drinks/Week Comments Not Asked 0 (1 standard drink = 0.6 oz pur e alcohol) Sex and Gender Information Value Date Recorded Sex Assigned at Not on file Gender Identity Not on file Sexual Orientation Not on file documented as of this encounter Plan of Treatment Scheduled Referrals Name Type Priority Associated Diagnoses Orde r Schedule Referral to Neurology Outpatient Referral Routine Cervical dystonia Ordered: 03/06/2022 documented as of this encounter Visit Diagnoses Diagnosis Cervical dystonia Spasmodic torticollis documented in this encounter Care Teams Racker Octave Board Relationship Specialty Start Date End Date Jose Antonio Palomo DNP PCP - General Family Medicine 03/06/22 documented as of this encounter
--- OUTSIDE RECORDS SUMMARY | 2023-10-03 12:37 | XMS_ITS | Encounter Summary ---
Author Organization [facility] Address [facility] [place] [address] Care Team Providers Care Patch Finisher Name Role Phone Murphy Stewart MD Primary Care Provider [phone] Encounter Details Date Type Department Care Team (Late st Contact Info) Description 09/13/2016 Orders Only Dermatology at [facility] [address] [place] [address] Amelie Palma MD [facility] DR [address] [place] [address] Social History Tobacco Use Types Packs/Day Years [...] on filedocumented in this encounter Care Teams Patch Finisher Relationship Specialty Start Date End Date Murphy Stewart MD [address] [place] [address] PCP - General 09/05/10 03/05/22 documented as of this encounter
--- OUTSIDE RECORDS SUMMARY | 2023-10-03 12:37 | XMS_ITS | Encounter Summary ---
Author Organization [facility] Address [facility] [place] [address] Care Team Providers Care Finish Specialist Name Role Phone Jose Antonio Palomo DNP Primary Care Provider [phone] Encounter Details Date Type Department Care Team (Late st Contact Info) Description 07/21/2022 12:05 AM EDT Ancillary Procedure [place] [address] Maia Tyler MD [facility] [place] [address] Social History Tobacco Use Types Packs/Day Years [...] Associated Diagnosis Comments FILM LIBRARY STORAGE ONLY DX CHEST Routine 07/21/2022 12:05 AM EDT documented in this encounter Results * Film Library- Storage Only DX Chest (07/21/2022 12:05 AM EDT) Narrative RAD - 07/22/2022 4:43 PM EDT This exam is auto-finalizing. It's purpose is for storage only. Maia Tyler MD IMG FILM LIBRARY ORDERABLES [place], [place] documented in this encounter Visit Diagnoses Not on filedocumented in this encounter Care Teams Finish Specialist Relationship Specialty Start Date End Date Jose Antonio Palomo DNP PCP - General Family Medicine 03/06/22 documented as of this encounter
--- OUTSIDE RECORDS SUMMARY | 2023-10-03 12:37 | XMS_ITS | Encounter Summary ---
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 Procedures Consult Murphy Stewart MD [address] [place] [address] [facility] Dermatology [address] [place] [address] Referral ID Status Reason Start Date Expiration Date Visits Re quested Visits Authorized [id number] Closed 08/06/2018 08/06/2019 1 1 Encounter Details Date Type Department Care Team (Late st Contact Info) Description 10/03/2018 11:30 AM EDT Office Visit Dermatology at [facility] [address] [place] [id number] Latha Posada MD [facility] [address] [address] Chronic dermatitis of hands Social History Tobacco Use Types Packs/Day Years Used Date Smoking Tobacco: Never Smokeless Tobacco: Never Alcohol Use Standard Drinks/Week Comments Not Asked 0 (1 standard drink = 0.6 oz pur e alcohol) Sex and Gender Information Value Date Recorded Sex Assigned at Not on file Gender Identity Not on file Sexual Orientation Not on file documented as of this encounter Progress Notes * Latha Posada MD - 10/03/2018 11:30 AM EDT DERMATOLOGY OUTPATIENT CLINIC NOTE Date of service: 10/03/2018 Marsha Beaulieu : 1955 Provider: Latha Posada MD PROBLEM: Chronic pruritus/dermatitis SKIN HISTORY: - Dermatitis (favor ACD) - tx w/ prednisone taper x 2, augmented betamethasone dipropionate cream, triamcinolone ointment, OTC Zyrtec 10mg, sensitive skin care - Eczema with secondary cellulitis (lower LE) - Hand eczema - Stasis dermatitis with ID reaction - tx'd w/ cephalexin, doxycycline, TAC - Varicose veins HPI Marsha Beaulieu is a 63 y.o. female, established patient to the clinic, new to me. Patient presentsto the clinic today for ongoing problems with pruritic dermatitis. She says this is the same issue she's been dealing with for the past 2 years and has been evaluated by several providers in our clinic. She mentions that she hasn't had her mammogram because she is embarrassed about the rash on her breast. However, currently it is significantly better as she was recently camping and all the areas healed up and she is no linger itchy. She thinks it is the sun that helped. - Location: Per patient, affected areas today are breasts, arms, inguinal folds - Onset: ~2 years ago - Symptoms: Itch (mild/moderately); ? visible rash (patient's eyesight is poor) - Treatments: Rubbing alcohol, peroxide, hydrocortisone cream, triamcinolone ointment - Exacerbating factors: None - Relieving factors: Improved by sunlight; notes improvement during recent trip to camp on [facility] - Changes in medications: None - Changes in skin care products: Unknown - Environmental allergies/exposures: Patient unsure whether she has allergies; expresses concerns that she has bed bugs or mites in her sofa, where she sleeps - Other: Patient previously declined biopsy proposed by Dr. Richardson on 12/20/16; patch testing has been considered ADR: Allergies Allergen Reactions ??? Amoxicillin Trihydrate rash, hives ??? Cis Free Text Allergy PNV--RASH VITAMIN. ??? Erythromycin Base ??? Lidocaine heart races, palpitations,chest pains ??? Mepivacaine Hcl heart races, palpitations, chest pains ??? Penicillins CURRENT MEDICATIONS: Current Outpatient Medications Medication Sig Dispense Refill ??? triamcinolone (KENALOG) 0.1 % Ointment Apply topically 2 times daily. 80 g 3 ??? augmented betamethasone dipropionate (DIPROLENE-AF) 0.05 % Cream Apply 50 g 3 ??? predniSONE (DELTASONE) 20 mg Tablet Take in the AM: 3 tabs x 5 days, then 2 tabs x 5 days, then1 tab x 5 days 30 tablet 0 ??? doxycycline monohydrate (MONODOX) 100 mg Capsule Take 1 capsule by mouth 2 times daily. 60 capsule 0 ??? aspirin 81 mg EC tablet Take 81 mg by mouth daily. No current facility-administered medications for this visit. PROBLEM LIST: Patient Active Problem List Diagnosis Code ??? Hyperlipidemia E78.5 ??? Varicose veins I83.90 ROS General: feeling well. Oriented X 3. Skin: denies other skin complaints EXAM General: NAD, pleasant, cooperative Skin: A focused skin examination of the trunk and extremities, significant for the following: Significant skin findings: - Eczematous patches on the hands. Healed scars on the arms and chest. ASSESSMENT/PLAN Eczema on the hands - patient has numerous healed scars on the chest, breasts, shoulders and arms. She has no open sores today. 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 We discussed that it is likely the sun helped and this phototherapy may be useful for her. However, [place] and thus not an option for her. I encouraged her to continue to get reasonable amounts of sun as long as she is not burning. She can use her TAC whenever she has any itchy areas as needed, Encouraged her to also use it on the hands. - Continue Rx: triamcinolone 0.1% cream: Apply to affected areas on the trunk and extremities twicedaily, as needed. Patient has supply at home. - Reassured patient that it is okay to get a few minutes of sunshine each day. - Recommended that she call to schedule her mammogram. - Instructed to call if it rash recurrs or for other skin concerns. RTC - PRN. Instructed patient to call with questions or concerns. Note initiated and routed to physician for review and change by: Olivia Angel, PERSONAL LINES INSURANCE AGENT I, Kesha Dye, Clinical Scribe have performed the documentation for this encounter in the presence of and acting as a scribe for Latha Posada MD. I, Dr. Latha Posada, performed the visit service though my nurse assisted me in scribing the note. I reviewed and edited this note above, a scribed service performed by my nurse. On closure of this note I agree with the accuracy of the documentation. Latha Posada MD Section of Dermatology [facility] documented in this encounter Plan of Treatment Not on file documented as of this encounter Visit Diagnoses Diagnosis Chronic dermatitis of hands Contact dermatitis and other eczema, due to unspecified cause documented in this encounter Care Teams Cloud Consultant Relationship Specialty Start Date End Date Murphy Stewart MD [address] [place] [address] PCP - General 09/05/10 03/05/22 documented as of this encounter
--- OUTSIDE RECORDS SUMMARY | 2023-10-03 12:37 | XMS_ITS | Encounter Summary ---
Author Organization [facility] Address [facility] [place] [address] Care Team Providers Care Scenic Designer Name Role Phone Jose Antonio Palomo DNP Primary Care Provider [phone] Encounter Details Date Type Department Care Team (Late st Contact Info) Description 07/21/2022 Ancillary Procedure [place] [phone] Maia Tyler MD [facility] [place] [address] Social History Tobacco Use Types Packs/Day Years [...] Diagnosis Comments FILM LIBRARY STORAGE ONLY DX ABDOMEN Routine 07/21/2022 12:00 AM EDT documented in this encounter Results * Film Library- Storage Only DX Abdomen (07/21/2022 12:00 AM EDT) Narrative [facility] - 07/22/2022 4:43 PM EDT This exam is auto-finalizing. It's purpose is for storage only. Maia Tyler MD IMG FILM LIBRARY ORDERABLES [facility] [place], [place] documented in this encounter Visit Diagnoses Not on filedocumented in this encounter Care Teams Scenic Designer Relationship Specialty Start Date End Date Jose Antonio Palomo DNP PCP - General Family Medicine 03/06/22 documented as of this encounter
--- OUTSIDE RECORDS SUMMARY | 2023-10-03 12:38 | XMS_ITS | Encounter Summary ---
Author Organization [facility] Address [address] [place] [address] Care Team Providers Care Systems Accountant Name Role Phone JudsondanaDelaney colbert REN Primary Care Provider Encounter Details Date Type Department Care Team (Late st Contact Info) Description 11/25/2015 Results Only [facility] [phone] Kassi Judge, [facility] [address] [place] [address] Social History Tobacco Use Types Packs/Day Years Used Date Smoking Tobacco: Never Assessed Sex and Gender Information Value Date Recorded Sex Assigned at Not on file Gender Identity Not on file Sexual Orientation Not on file documented as of this encounter Plan of Treatment Not on file documented as of this encounter Procedures Procedure Name Priority Date/Time Associated Diagnosis Comments PAP TEST- RESULT ONLY Routine 11/25/2015 0:00 EDT documented in this encounter Results * PAP TEST- RESULT ONLY (11/25/2015 0:00 EDT) Pathology Report: CYTOPATHOLOGY REPORT Reports generated via electronic interface contain original data; however they are lacking the format of the original report. Caution should be taken when reading/interpreti ng unformatted reports. Name: ? PAYTON LOOMIS ? Accession #: ? [id number] ? : ? 1955 (Age: 60) ??F ?Collect Date: ? 11/25/2015 ? Location: ? [facility] ? Receive Date: ? 11/26/2015 ? Provider: KASSI JUDGE DUST COLLECTOR TREATER Copy to: GLADYS VINSON MD ? Final Report SPECIMEN ADEQUACY ? Satisfactory for Evaluation - transformation zone component present GENERAL CATEGORIZATION ? Negative for Intraepithelial Lesion or Malignancy ?? Last Menstrual Period: 11/2013 Specimen/Source: ??Pap Test, Cervix, ThinPrep Imaging System with manual evaluation Document reviewed and electronically signed by: ? Karyn Wells, CT(ASCP) ? Report ??Date: 11/30/2015 10:21 HPV with Pap Test ? Date Ordered: ? 11/30/2015 ? Status: ?? Signed Out ?Date Complete: ? 12/02/2015 ? By: ??System Interface ? Date Reported: ? 12/02/2015 ? Interpretation RESULT: Negative for HPV. No E6 or E7 mRNA is detected from HPV types 16,18,31,33,35, 39,45,51,52,56,58, 59,66, and 68 by manager army mediated amplification. Comments Document reviewed and electronically signed by: ? System Interface ? Report date: 12/02/2015 By the signature above, the attending physician certifies that he/she has personally conducted a gross and/or microscopic examination of the described specimens and rendered or confirmed the above diagnosis. End of Report [facility] 11/25/2015 11/26/2015 Kassi Judge DUST COLLECTOR TREATER PATHOLOGY ORDERABLES [facility] [address] [place] [address] documented in this encounter Visit Diagnoses Not on filedocumented in this encounter Care Teams Systems Accountant Relationship Specialty Start Date End Date [place] [address] PCP - General 01/03/11 documented as of this encounter
--- OUTSIDE RECORDS SUMMARY | 2023-10-03 12:38 | XMS_ITS | Encounter Summary ---
Author Organization [facility] Address [address] [place] [address] Care Team Providers Care Director Investor Relations Name Role Phone Unavailable Primary Care Provider Unavailabl e Encounter Details Date Type Department Care Team (Late st Contact Info) Description 12/29/2010 Results Only [facility] [phone] Delores Mcintosh, DO [address] [place] [address] Social History Tobacco Use Types Packs/Day Years Used Date Smoking Tobacco: Never Assessed Sex and Gender Information Value Date Recorded Sex Assigned at Not on file Gender Identity Not on file Sexual Orientation Not on file documented as of this encounter Plan of Treatment Not on file documented as of this encounter Procedures Procedure Name Priority Date/Time Associated Diagnosis Comments SURGICAL PATHOLOGY Routine 12/29/2010 0:00 EST documented in this encounter Results * SURGICAL PATHOLOGY (12/29/2010 0:00 EST) Pathology Report: SURGICAL PATHOLOGY REPORT Reports generated via electronic interface contain original data; however they are lacking the format of the original report. Caution should be taken when reading/interpreti ng unformatted reports. Name: ? PAYTON LOOMIS ? Accession #: ? [id number] ? : ? 1955 (Age: 55) ??F ? Collect Date: ? 12/29/2010 ? Location: ? [facility] ? Receive Date: ? 12/30/2010 ? Provider: DELORES MCINTOSH DO Copy to: KYAW HAIRSTON PLANT MAINTENANCE WORKER ? Final Pathologic Diagnosis: ? Skin of breast, right, punch biopsy: - Dermal fibrosis with chronic inflammation and foreign body giant cell reaction. ??See comment. Comment: ? Multiple sections of the biopsy were reviewed. ??The histologic features are reactive/reparativ e in nature with scar formation and chronic inflammation. There are occasional multinucleated giant cells, although no polarizable or non-polarizable foreign material is evident. ??The features could represent resolving phase of either a cutaneous cyst or abscess. ??The features, however, are not suggestive of an active infectious process. ??(Dr. Pruett)/[facility] Microscopic Description: ? Sections consist of a punch biopsy of skin to the deep reticular dermis. The epidermis is relatively unremarkable. ??The underlying dermis has fibrosis with reactive vascular pattern. ??Superficially, there is patchy, chronic consisting of lymphocytes, histiocytes, and plasma cells. ??In some of the sections, aggregates of multinucleated giant cells are evident. ??Some of the histiocytes have eden brown pigment that is morphologically consistent with hemosiderin. ??Deeper sections show similar features. ??No polarizable foreign material is identified. ??(Dr. Pruett)/[facility] Document reviewed and electronically signed by: DMEARCO PRUETT MD Report ??Date: 01/02/2011 16:42 By the signature above, the attending physician certifies that he/she has personally conducted a gross and/or microscopic examination of the described specimens and rendered or confirmed the above diagnosis. Specimen(s) Received: ? R breast tissue punch skin bx Clinical History: ? R breast tissue punch bx for pathology; additional history obtained from Dr. Mcintosh is of no previous procedure at this site, clinical impression of healing lesion, ? cyst or abscess. Gross Description: ? Received in formalin labelled Payton Loomis and R breast tissue is an ovoid punch biopsy of acosta-white skin measuring 0.5 x 0.3 cm in diameter and 0.4 cm in thickness. ??The specimen is submitted intact in a single cassette. ??(Jocelyn Lilly)/[facility] End of Report [facility] 12/29/2010 12/30/2010 9:4 0 EST Delores Mcintosh DO PATHOLOGY ORDERABLES [facility] [address] [place] [address] documented in this encounter Visit Diagnoses Not on filedocumented in this encounter
--- OUTSIDE RECORDS SUMMARY | 2023-10-03 12:38 | XMS_ITS | Encounter Summary ---
Author Organization [facility] Address [facility] [place] [address] Care Team Providers Care Screw Machine Operator Single Spindle Name Role Phone Murphy Stewart MD Primary Care Provider [phone] Encounter Details Date Type Department Care Team (Latest Contact Info) Description 09/12/2010 12:37 PM EDT - 09/12/2010 11:59 PM EDT Hospital Encounter Mammography at [facility] [place] [address] Abnormal mammogram, unspecified Social History Tobacco Use Types Packs/Day Years Used Date Smoking Tobacco: Never Alcohol Use Standard Drinks/Week Comments Not Asked 0 (1 standard drink = 0.6 oz pur e alcohol) Sex and Gender Information Value Date Recorded Sex Assigned at Not on file Gender Identity Not on file Sexual Orientation Not on file documented as of this encounter Medications at Time of Discharge Medication Sig Dispensed Refills Start Date End Date aspirin 81 mg EC tablet Take 81 mg by mouth daily. documented as of this encounter Plan of Treatment Not on file documented as of this encounter Procedures Procedure Name Priority Date/Time Associated Diagnosis Comments MAMMO BREAST US LIMITED Routine 09/12/2010 2:08 PM EDT Abnormal mammogram, unspecified documented in this encounter Results * Mammo breast US unilateral bilateral (09/12/2010 2:08 PM EDT) Anatomical Region Laterality Modality Breast N/A Mammography 09/12/2010 2:08 PM EDT Narrative 09/13/2010 12:49 PM EDT RIGHT UNILATERAL DIAGNOSTIC MAMMOGRAM AND RIGHT BREAST ULTRASOUND ON 09/12/10: ?? This was a call back from a screening exam of 09/05/10 for a subtle, new area of focal asymmetry in the lower, inner quadrant of the Right breast. ? TECHNIQUE: RML, RSCC, RSMLO, RCCRL and RCCRM views obtained with direct digital capture ?? FINDINGS: On additional imaging today, there was persistence of this focal asymmetry which corresponded to a 2.5cm area of skin thickening and discoloration in the lower, outer quadrant at approximately 0500, 8cm to the nipple. No mammographic findings worrisome for malignancy are identified. Ultrasound of the Right breast was performed. No lesions within the breast are identified. However, there is focal skin thickening with flow on color Doppler corresponding to the patient's skin lesion. The patient states that this has been present for nine months and that she has not seen anyone for this finding. Clinical evaluation of the skin lesion is recommended. ?? CONCLUSION: ?? NEGATIVE (BI-RADS Category 1) unilateral Right mammogram and Right breast ultrasound. There is no imaging evidence of malignancy. ? NOTE: The original mammographic appearance is due to a skin lesion in the lower, outer quadrant of the Right breast. Clinical evaluation is needed, as discussed with the patient by Dr. Overton at the time of this evaluation. Verbal report was also given to Dr. Murphy Bowling's nurse by Dr. Overton, 09/12/10. Procedure Note Mulu Overton MD - 09/13/2010 RIGHT UNILATERAL DIAGNOSTIC MAMMOGRAM AND RIGHT BREAST ULTRASOUND ON09/12/10: This was a call back from a screening exam of 09/05/10 for a subtle, newarea of focal asymmetry in the lower, inner quadrant of the Right breast. TECHNIQUE: RML, RSCC, RSMLO, RCCRL and RCCRM views obtained with directdigital capture FINDINGS: On additional imaging today, there was persistence of this focal asymmetry which corresponded to a 2.5cm area of skin thickening and discoloration in the lower, outer quadrant at approximately 0500, 8cm tothe nipple. No mammographic findings worrisome for malignancy are identified. Ultrasound of the Right breast was performed. No lesions within the breastare identified. However, there is focal skin thickening with flow on colorDoppler corresponding to the patient's skin lesion. The patient states that thishas been present for nine months and that she has not seen anyone for thisfinding. Clinical evaluation of the skin lesion is recommended. CONCLUSION: NEGATIVE (BI-RADS Category 1) unilateral Right mammogram and Right breast ultrasound. There is no imaging evidence of malignancy. NOTE: The original mammographic appearance is due to a skin lesion in the lower, outer quadrant of the Right breast. Clinical evaluation is needed,as discussed with the patient by Dr. Overton at the time of this evaluation.Verbal report was also given to Dr. Murphy Bowling's nurse by Dr. Overton,09/12/10. Lucinda Borrero MD IMG MAMMO ORD ERABLES documented in this encounter Visit Diagnoses Diagnosis Abnormal mammogram, unspecified documented in this encounter Care Teams Screw Machine Operator Single Spindle Relationship Specialty Start Date End Date Murphy Stewart MD [address] [place] [address] PCP - General 09/05/10 03/05/22 documented as of this encounter
--- OUTSIDE RECORDS SUMMARY | 2023-10-03 12:38 | XMS_ITS | Encounter Summary ---
Author Organization [facility] [place] [address] Care Team Providers Care Product Management Analyst Name Role Phone Murphy Stewart MD Primary Care Provider [phone] Encounter Details Date Type Department Care Team (Late st Contact Info) Description 09/05/2010 9:15 AM EDT - 09/05/2010 11:59 PM EDT Hospital [place] [id number] CLINIC, Murphy Valente MD [address] [facility] [address] [place] [address] Discharge Disposition: Home Social History Tobacco Use Types Packs/Day Years [...] CAD BILATERAL Routine 09/05/2010 9:46 AM EDT documented in this encounter Results * MAMMO DIGITAL BILATERAL SCREENING WITH [...] factors. Murphy Stewart MD IMG MAMMO ORDERABLES documented in this encounter Visit Diagnoses Not on filedocumented in this encounter Care Teams Product Management Analyst Relationship Specialty Start Date End Date Murphy Stewart MD [address] [facility] [address] [place] [address] PCP - General 09/05/10 03/05/22 documented as of this encounter
--- OUTSIDE RECORDS SUMMARY | 2023-10-03 12:38 | XMS_ITS | Encounter Summary ---
Author Organization [facility] Address [facility] [place] [address] Care Team Providers Care Certified Coder Name Role Phone Murphy Stewart MD Primary Care Provider Encounter Details Date Type Department Care Team (Late st Contact Info) Description 09/05/2010 Orders [place] [address] July Ramirez MD [facility] [place] [address] Unspecified venous (peripheral) insufficiency (Primary Dx) Social History Tobacco Use Types [...] Procedure Name Priority Date/Time Associated Diagnosis Comments UNLATERAL VALVULAR INCOMP Routine 09/05/2010 12:41 PM EDT Unspecified venous (peripheral) insufficiency documented in this encounter Results * LE Unilateral Valvular Incomp Study (09/05/2010 12:41 PM EDT) VB Text Report Department: Vascular Surgery Lab Patient: [id number] (PAYTON LOOMIS) CPT Code: 69260 ICD-9: 459.81 Referring Physician: JULY RAMIREZ Indication: ? bleeding varicose veins ICD9 Diagnosis Code: 459.81 Findings: Segment ? Reflux?Patency? ??Diameter (mm) ??Depth (mm) Common Femoral Vein ? Competent ??Yes Femoral Vein Thigh ?Competent ??Yes Popliteal ? Competent ??Yes Posterior Tibial Vein ? Competent ??Yes Great Saphenous Vein, Near SFJ ?Competent ??Yes ?5.9 ?25.0 Great Saphenous, Upper Thigh ?Reflux ? Yes ?3.2 ?23.0 Great Saphenous Vein, Mid Thigh ?? Reflux ? Yes ?3.8 ?15.0 Great Saphenous Vein, ??Knee ? Reflux ? Yes ?2.7 ?10.0 Great Saphenous Vein, Below Knee ??Reflux ? Yes ?2.2 ? 8.0 Short Saphenous, Below Knee ? Competent ??Yes Interpretation: LEFT: Findings consistent with superficial venous (GSV) valvular incompetence. No evidence of deep venous valvular incompetence. No evidence of deep (fem-pop) vein thrombus. The short saphenous and great saphenous vein below the knee is narrow and sclerotic with minimal flow. Signed by JULY RAMIREZ on 2010-09-07 05:16:23 PM [facility] VB Text Report End of Report [facility] 09/05/2010 12:4 1 PM EDT July Ramirez MD VASCULAR ORDERABLES [facility] documented in this encounter Visit Diagnoses Diagnosis Unspecified venous (peripheral) insufficiency- Primary documented in this encounter Care Teams Certified Coder Relationship Specialty Start Date End Date Murphy Stewart MD [address] [place] [address] PCP - General 09/05/10 03/05/22 documented as of this encounter
--- OUTSIDE RECORDS SUMMARY | 2023-10-03 12:38 | XMS_ITS | Encounter Summary ---
Author Organization [facility] Address [address] [place] [address] Care Team Providers Care Complex Director Name Role Phone Unavailable Primary Care Provider Unavailabl e Encounter Details Date Type Department Care Team (Late st Contact Info) Description 09/05/2006 Results Only [facility] - [facility] conversion [address] [place] [address] Jaja Traylor, REN [address]I [place], [place] [id number] Social History Tobacco Use Types Packs/Day Years Used Date Smoking Tobacco: Never Assessed Sex and Gender Information Value Date Recorded Sex Assigned at Not on file Gender Identity Not on file Sexual Orientation Not on file documented as of this encounter Plan of Treatment Not on file documented as of this encounter Procedures Procedure Name Priority Date/Time Associated Diagnosis Comments CYTOPATHOLOGY Routine 09/05/2006 0:00 EDT documented in this encounter Results * CYTOPATHOLOGY (09/05/2006 0:00 EDT) Pathology Report: CYTOPATHOLOGY REPORT Reports generated via electronic interface contain original data; however they are lacking the format of the original report. Caution should be taken when reading/interpreti ng unformatted reports. Name: ? PAYTON LOOMIS ? Accession #: ? [id number] : ? 1955 (Age: 51) ??F ?Collect Date: ? 09/05/2006 Location: ? [facility] ? Receive Date: ? 09/06/2006 Provider: ?JAJA TRAYLOR BATTERY STARTER Copy to: ? Specimen/Source: ?ThinPrep Pap Test, Endocervix, processed on [employer] ThinPrep Imaging System, with manual evaluation Last Menstrual Period: ? 7.5. Treatment History: ? Cryotherapy: Years ago Other: ? HPVA - HPV testing requested if ASC-US on the current ThinPrep Pap test. ? SPECIMEN ADEQUACY ? Satisfactory for Evaluation - transformation zone component present GENERAL CATEGORIZATION ? Negative for Intraepithelial Lesion or Malignancy ? Document reviewed and electronically signed by: ? MARNIE Vega(ASCP) ? Report Date: ??09/11/2006 14:52 End of Report DELANEY GAMA 09/05/2006 09/06/2006 Jaja Traylor NP PATHOLOGY [facility] DELANEY GAMA [address] [place] [address] documented in this encounter Visit Diagnoses Not on filedocumented in this encounter
--- OUTSIDE RECORDS SUMMARY | 2023-10-03 12:38 | XMS_ITS | Encounter Summary ---
Author Organization [facility] Address [address] [place] [address] Care Team Providers Care Film Color Tester Name Role Phone Delaney Loza REN Primary Care Provider [phone] Encounter Details Date Type Department Care Team (Late st Contact Info) Description 10/06/2021 Lab Requisition [facility] Pathology & Laboratory Medicine - [facility] [address] [place], [place] [id number] Outr Resulting Lab, Provider Social History Tobacco Use Types Packs/Day Years Used Date Smoking Tobacco: Never Assessed Sex and Gender Information Value Date Recorded Sex Assigned at Not on file Gender Identity Not on file Sexual Orientation Not on file documented as of this encounter Plan of Treatment Not on file documented as of this encounter Procedures Procedure Name Priority Date/Time Associated Diagnosis Comments ZZCOVID-19 TEST [facility] PCR Today 10/05/2021 9:30 EDT COVID-19 TESTING Routine 10/05/2021 9:30 EDT documented in this encounter Results * COVID-19 TEST [facility] PCR (10/05/2021 9:30 EDT) Swab 10/05/2021 9:30 EDT 10/06/2021 17:11 EDT Provider Outr Resulting Lab MICROBIOLOGY - GENERAL ORDERABLES [facility] [address] [place] [address] * COVID-19 TESTING (10/05/2021 9:30 EDT) COVID-19 rt-PCR Result Negative Negative 10/07/2021 15:[address] [facility] Comment: This test has not been FDA cleared or approved. This test has been authorized by FDA under an EUA for use by authorized laboratories. This test has been authorized only for detection of nucleic acid from 2019-nCoV, not for any other viruses or pathogens. This test is only authorized for the duration of the declaration that circumstances exist justifying the authorization of emergency use of in vitro diagnostic tests for detection and/or diagnosis of 2019-nCoV under section 564(b)(1) of Act, 21 U.S.C ?? 360bbb-3(b) (1), unless the authorization is terminated or revoked sooner. Negative results do not preclude 2019-nCoV infection and should not be used as the sole basis for treatment or other patient management decisions. Negative results must be combined with clinical observations, patient history, and epidemiological information. Testing was performed using the mani SARS-CoV-2 assay ([employer] on the Mani 6800 System Performing Lab Mani [address] [facility] 10/07/2021 15:[address] [facility] Swab 10/05/2021 9:30 EDT 10/06/2021 17:11 EDT Provider Outr Resulting Lab MICROBIOLOGY - GENERAL ORDERABLES Performing Organization Address City/State/[facility] Co de Phone Number [facility] [address] [place] [address] documented in this encounter Visit Diagnoses Not on filedocumented in this encounter Care Teams Film Color Tester Relationship Specialty Start Date End Date Delaney Loza [place] [address] [place] [address] PCP - General 01/03/11 documented as of this encounter
--- OUTSIDE RECORDS SUMMARY | 2023-10-03 12:38 | XMS_ITS | Encounter Summary ---
Author Organization [facility] Address [facility] [place] [address] Care Team Providers Care Conveyor Maintenance Mechanic Name Role Phone Murphy Stewart MD Primary Care Provider [phone] Encounter Details Date Type Department Care Team (Late st Contact Info) Description 08/31/2010 Orders [place] [address] Damian Love MD [facility] [place] [address] Social History Tobacco Use Types Packs/Day Years Used Date Smoking Tobacco: Never Assessed Sex and Gender Information Value Date Recorded Sex Assigned at Not on file Gender Identity Not on file Sexual Orientation Not on file documented as of this encounter Plan of Treatment Not on file documented as of this encounter Visit Diagnoses Not on filedocumented in this encounter Care Teams Conveyor Maintenance Mechanic Relationship Specialty Start Date End Date Murphy Stewart MD [address] [place] [address] PCP - General 09/05/10 03/05/22 documented as of this encounter
--- OUTSIDE RECORDS SUMMARY | 2023-10-03 12:38 | XMS_ITS | Encounter Summary ---
Author Organization [facility] Address [address] [place] [address] Care Team Providers Care Doctor Of Veterinary Medicine Name Role Phone Unavailable Primary Care Provider Unavailabl e Encounter Details Date Type Department Care Team (Late st Contact Info) Description 05/14/2009 Results Only [facility] Services - [facility] [address] [place] [address] Kassi Judge, [facility] [address] [place] [address] Social History Tobacco Use Types Packs/Day Years Used Date Smoking Tobacco: Never Assessed Sex and Gender Information Value Date Recorded Sex Assigned at Not on file Gender Identity Not on file Sexual Orientation Not on file documented as of this encounter Plan of Treatment Not on file documented as of this encounter Procedures Procedure Name Priority Date/Time Associated Diagnosis Comments CYTOPATHOLOGY Routine 05/14/2009 0:00 EDT documented in this encounter Results * CYTOPATHOLOGY (05/14/2009 0:00 EDT) Pathology Report: CYTOPATHOLOGY REPORT ? Reports generated via electronic interface contain original data; ? however they are lacking the format of the original report. ? Caution should be taken when reading/interpreti ng unformatted reports. ? Name: ? PAYTON LOOMIS ? Accession #: ? [id number] ? : ? 1955 (Age: 53) ??F ?Collect Date: ? 05/14/2009 ? Location: ? [facility] ? Receive Date: ? 05/17/2009 ? Provider: ?KASSI MATT HYDRAULIC PILE HAMMER OPERATOR ? Copy to: ? Specimen/Source: ?Pap Test, Cervix/Endocervix, ThinPrep Imaging System ? with manual evaluation ? Last Menstrual Period: ? 3/4/10 ? Treatment History: ? Cryotherapy: in her 20's, normal paps since ? Other: ? HPVA - HPV testing requested if ASC-US on the current ThinPrep Pap test. ? SPECIMEN ADEQUACY ? Satisfactory for Evaluation ? - transformation zone component present ? GENERAL CATEGORIZATION ? Negative for Intraepithelial Lesion or Malignancy ? Document reviewed and electronically signed by: ? Laura Constantino, [place](ASCP) ? Report Date: ??05/18/2009 10:56 ? End of Report ? DELANEY GAMA 05/14/2009 05/17/2009 Kassi Judge HYDRAULIC PILE HAMMER OPERATOR PATHOLOGY ORDERABLES [facility] [address] [place] [address] documented in this encounter Visit Diagnoses Not on filedocumented in this encounter
--- OUTSIDE RECORDS SUMMARY | 2023-10-03 12:38 | XMS_ITS | Referral Summary ---
Author Organization [facility] Address [address] [place] [address] Care Team Providers Care Gambreler Helper Name Role Phone Delaney Loza NP Primary Care Provider [phone] Social History Tobacco Use Types Packs/Day Years Used Date Smoking Tobacco: Never Assessed Sex and Gender Information Value Date Recorded Sex Assigned at Not on file Gender Identity Not on file Sexual Orientation Not on file Plan of Treatment Not on file Care Teams Gambreler Helper Relationship Specialty Start Date End Date Delaney Loza [place] [address] [place] [address] PCP - General 01/03/11
--- OUTSIDE RECORDS SUMMARY | 2023-10-03 12:38 | XMS_ITS | Encounter Summary ---
Author Organization [facility] Address [facility] [place] [address] Care Team Providers Care Restaurant Assistant Manager Name Role Phone Murphy Stewart MD Primary Care Provider [phone] Reason for Referral * Consultation (Routine) - Closed Specialty Diagnoses / Procedures Referred By Elia alvarado Referred To Contact Dermatology Milind Riggs MD [facility] [place] [address] [facility] Dermatology [address] [place] [address] Referral ID Status Reason Start Date Expiration Date V isits Requested Visits Authorized [id number] Closed Consult, Test & Treat 08/29/2016 08/29/2017 1 1 Reason for Visit * Reason Comments Rash Leg Swelling Encounter Details Date Type Department Care Team (Late st Contact Info) Description 08/29/2016 5:52 PM EDT - 08/29/2016 8:47 PM EDT [place] [address] Alize Mcdowell MD [facility] [place] [address] Skin rash; Cellulitis, unspecified cellulitis site; Cellulitis of left leg Discharge Disposition: Home Social History Tobacco Use Types Packs/Day Years Used Date Smoking Tobacco: Never Alcohol Use Standard Drinks/Week Comments Not Asked 0 (1 standard drink = 0.6 oz pur e alcohol) Sex and Gender Information Value Date Recorded Sex Assigned at Not on file Gender Identity Not on file Sexual Orientation Not on file documented as of this encounter Last Filed Vital Signs Vital Sign Reading Time Taken Comments Blood Pressure 126/63 08/29/2016 8:00 PM EDT Pulse 75 08/29/2016 8:30 PM EDT Temperature 36.6 ??C (97.9 ??F) 08/29/2016 6:30 PM ED T Respiratory Rate 18 08/29/2016 8:30 PM EDT Oxygen Saturation 98% 08/29/2016 8:30 PM EDT Inhaled Oxygen Concentration - - Weight 73.9 kg (163 lb) 08/29/2016 4:04 PM EDT Height - - Body Mass Index 30.8 09/05/2010 1:47 PM EDT documented in this encounter Discharge Instructions * Discharge Instructions* Milind Riggs MD - 08/29/2016 8:24 PM EDT Images from the original note were not included. [facility] Cellulitis: Care Instructions Your Care Instructions You have been referred to dermatology for further evaluation of the rash on her arms and leg. You have also been prescribed a course of antibiotics called Keflex, as it appears there is a superficialinfection on top of your leg rash. Take the antibiotic 4 times per day for 10 days. Dermatology will contact you. If you do not hear from them in the next few days, you can call the number provided and the follow-up section. Bedside ultrasound was performed and showed no evidence of DVT. If you develop significantly worsening rash, fevers, nausea/vomiting, or any other concerns, return to the emergency department for reevaluation. Otherwise, follow-up with your primary care provider as needed. Cellulitis is a skin infection. It often occurs after a break in the skin from a scrape, cut, bite,or puncture, or after a rash. The doctor has checked you carefully, but problems can develop later. If you notice any problems ornew symptoms, get medical treatment right away. Follow-up care is a aguilera part of your treatment and safety. Be sure to make and go to all appointments, and call your doctor if you are having problems. It's also a good idea to know your test resultsand keep a list of the medicines you take. How can you care for yourself at home? ?? Take your antibiotics as directed. Do not stop taking them just because you feel better. You need to take the full course of antibiotics. ?? Prop up the infected area on pillows to reduce pain and swelling. Try to keep the area above thelevel of your heart as often as you can. ?? If your doctor told you how to care for your wound, follow your doctor's instructions. If you did not get instructions, follow this general advice: ?? Wash the wound with clean water 2 times a day. Don't use hydrogen peroxide or alcohol, which canslow healing. ?? You may cover the wound with a thin layer of petroleum jelly, such as Vaseline, and a nonstick bandage. ?? Apply more petroleum jelly and replace the bandage as needed. ?? Be safe with medicines. Take pain medicines exactly as directed. ?? If the doctor gave you a prescription medicine for pain, take it as prescribed. ?? If you are not taking a prescription pain medicine, ask your doctor if you can take an aaor-efn-[id number] medicine. To prevent cellulitis in the future ?? Try to prevent cuts, scrapes, or other injuries to your skin. Cellulitis most often occurs wherethere is a break in the skin. ?? If you get a scrape, cut, mild burn, or bite, wash the wound with clean water as soon as you peterson help avoid infection. Don't use hydrogen peroxide or alcohol, which can slow healing. ?? If you have swelling in your legs (edema), support stockings and good skin care may help preventleg sores and cellulitis. ?? Take care of your feet, especially if you have diabetes or other conditions that increase the risk of infection. Wear shoes and socks. Do not go barefoot. If you have athlete's foot or other skin problems on your feet, talk to your doctor about how to treat them. When should you call for help? Call your doctor now or seek immediate medical care if: ?? You have signs that your infection is getting worse, such as: ?? Increased pain, swelling, warmth, or redness. ?? Red streaks leading from the area. ?? Pus draining from the area. ?? A fever. ?? You get a rash. Watch closely for changes in your health, and be sure to contact your doctor if: ?? You are not getting better after 1 day (24 hours). ?? You do not get better as expected. Where can you learn more? Visit our health information library at [email or web address] You can also view health information on [employer], your personal patient account. Log in or sign up today. Enter X309 in the search box to learn more about Cellulitis: Care Instructions. ?? [id number] [employer]. Care instructions adapted under license by [facility]. This care instruction is for use with your licensed healthcare professional. If you have questions about a medical condition or this instruction, always ask your healthcare professional. [employer] disclaims any warranty or liability for your use of this information. Content Version: 11.0.628653; Current as of: March 26, 2015 documented in this encounter Medications at Time of Discharge Medication Sig Dispensed Refills Start Date End Date aspirin 81 mg EC tablet Take 81 mg by mouth daily. predniSONE (DELTASONE) 20 mg Tablet TAKE TWO TABLETS BY MOUTH DAILY 0 08/11/2016 09/20/2016 cephalexin (KEFLEX) 500 mg Capsule Take 1 capsule by mouth 4 times daily for 10 days. 40 capsule 08/29/2016 09/08/2016 documented as of this encounter ED Notes * Joseph Sanyd RN - 08/29/2016 8:15 PM EDT To radiology via stretcher. * Martín Licea RN - 08/29/2016 7:47 PM EDT RN introduced self and role to Pt. Pt resting comfortably with family at bedside. No requests at this time. * Joseph Sandy RN - 08/29/2016 7:16 PM EDT Report from Heidy LEO to assume care. * Sofya Hope RN - 08/29/2016 6:31 PM EDT Pt accompanied by daughter. Pt reports rash started in June. Bilateral rash on upper extremities andLLE below knee to foot. LLE with significant swelling in calf area. Rash has open sores in various stages of healing, scabbing present; burning sensation; itching. Pt reports shoes no longer fit and she wears flip flops to mobilize. This past Sunday Pt reports heart racing on awakening from sleep, sat up and awoke on floor; pt unaware how long on floor, denies hitting head. Awake and oriented. Afebrile. CMS intact; bilateral pedal pulses. US completed of LLE at bedside per MD. * Milind Riggs MD - 08/29/2016 6:24 PM EDT Marsha Beaulieu is an 61 y.o. female who presents to the ED with: Chief Complaint Patient presents with ??? Rash ??? Leg Swelling I saw this patient 08/29/2016 at 11:52 PM HPI Marsha Beaulieu is a 61 y.o. female with history of hyperlipidemia, varicose veins, and previous superficial venous thromboembolism who presents to the Emergency Department for rash. She has had a rash to her bilateral upper extremities in her left lower extremity since June. She has tried both oraland topical steroids without improvement. She feels like the rash her left lower extremity is getting worse and now has swelling. She states that her rash is itchy and sometimes graham. She denies fever, chills, nausea/vomiting, shortness of breath, abdominal pain, urinary changes, or diarrhea. She does mention that she intermittently has had short episodes of chest pain over the past few weeks which are not exertional. She denies recent travel, hospitalization, hemoptysis, malignancy, or DVT. Review of Systems: Review of Systems 10 point review of systems performed. As per history of present illness. All other systems negative. Patient Vitals for the past 24 hrs: BP Temp Temp src Pulse Resp SpO2 Weight 08/29/16 2030 - - - 75 18 98 % - 08/29/161999 126/63 - - 75 17 96 % - 08/29/16 1930 128/62 - - 66 17 96 % - 08/29/16 1900 143/73 - - 89 23 99 % - 08/29/16 1830 145/82 36.6 ??C (97.9 ??F) Oral 79 18 98 % - 08/29/16 1800 146/67 - - - - 99 % - 08/29/16 1606 - 36.6 ??C (97.9 ??F) Oral - - - - 08/29/16 1604 146/79 - - 76 18 100 % 73.9 kg (163 lb) Physical Exam: Physical Exam Constitutional: She is oriented to person, place, and time. She appears well- developed and well-nourished. No distress. HENT: Head: Normocephalic and atraumatic. Eyes: Conjunctivae and EOM are normal. Neck: Normal range of motion. Neck supple. Cardiovascular: Normal rate and regular rhythm. Exam reveals no gallop and no friction rub. No murmur heard. Pulmonary/Chest: Effort normal and breath sounds normal. No respiratory distress. She has no wheezes. She has no rales. Abdominal: Soft. Bowel sounds are normal. She exhibits no distension. There is no tenderness. Thereis no rebound and no guarding. Musculoskeletal: Normal range of motion. She exhibits edema (1+ pitting to left ankle and foot). Neurological: She is alert and oriented to person, place, and time. Skin: Skin is warm and dry. Rash (Blanchable, crusting rash encircling biilateral upper extremitiesand left leg from ankle to just below knee) noted. She is not diaphoretic. Psychiatric: She has a normal mood and affect. Her behavior is normal. Nursing note and vitals reviewed. ED Course: - Patient was evaluated and discussed with Dr. Mcdowell - Medications, allergies and past medical history reviewed Labs reviewed Recent Results (from the past 24 hour(s)) Troponin T Result Value Ref Range Troponin-T <0.03 <=0.03 ng/mL Sedimentation rate Result Value Ref Range Sed Rate 10 0 - 20 mm/hr CRP, acute inflammation Result Value Ref Range CRP 5.9 (H) <=4.9 mg/L BMP w/fasting Glucose Result Value Ref Range Glucose Fasting 110 (H) 65 - 99 mg/dL BUN 14 8 - 18 mg/dL Creatinine 0.73 0.70 - 1.20 mg/dL Sodium 137 135 - 145 mmol/L Potassium 4.3 3.5 - 5.0 mmol/L Chloride 102 98 - 107 mmol/L CO2 24 22 - 31 mmol/L Anion Gap 11 5 - 15 mmol/L Calcium 9.2 8.5 - 10.5 mg/dL Estimated GFR >60 >=60 Hemogram Result Value Ref Range WBC 8.2 4.0 - 9.5 x10(3)/mcL RBC 5.13 4.00 - 5.21 x10(6)/mcL Hemoglobin 13.9 11.7 - 15.5 gm/dL Hematocrit 42.6 35.7 - 45.8 % MCV 83.0 82.6 - 94.4 fL MCH 27.1 27.1 - 32.0 pg MCHC 32.6 31.7 - 35.0 gm/dL Platelets 303 145 - 357 x10(3)/mcL RDWSD 38.4 37.0 - 46.0 fL RDWCV 12.5 11.5 - 14.1 % MPV 10.6 7.6 - 12.9 fL nRBC % Auto 0.0 % nRBC Abs Auto 0.000 0.000 - 0.000 x10(3)/mcL Differential, Automated Result Value Ref Range Neutrophils % 60.1 % Neutr Abs (ANC) 4.94 1.70 - 6.10 x10(3)/mcL Lymphocytes % 27.2 % Lymphocytes Abs 2.2 0.9 - 3.2 x10(3)/mcL Monocytes % 6.2 % Monocyte Abs 0.5 0.3 - 0.9 x10(3)/mcL Eosinophils % 5.5 % Eosinophils Abs 0.4 0.0 - 0.4 x10(3)/mcL Basophils % 0.6 % Basophils Abs 0.0 0.0 - 0.1 x10(3)/mcL Immature Gran % 0.40 % Rand Gran Abs 0.03 0.00 - 0.04 x10(3)/mcL Blue Tube HOLD Result Value Ref Range Blue Hold Sample in lab. Gold Tube HOLD Result Value Ref Range Gold Hold Sample in lab. Bedside Ultrasound During ED Visit: Point of care emergency department limited soft tissue ultrasound: Indication: Soft tissue infection with concern for presence of drainable abscess. Procedure in detail: Using the Transducers: Linear transducer, the affected area was interrogated in two orthogonal planes and revealed Abscess vs Cellulitis: cobblestoning with edema. Abscess measurements: 5 cm by 10 cm by 1 cm Other findings or limitations: None Taking note of depth and site of maximal collection this area was marked for procedural guidance. Impression: Point of care limited soft tissue ultrasound consistent with the Absence of an abscess and Presence cellulitis. This study was supervised by an ultrasound credentialed emergency physician. These images were archived digitally and I independently interpreted the images at the bedside and agree with the documented results. Point of care emergency department limited ultrasound of the lower extremity: Indication: Lower extremity swelling and redness. Procedure in Detail: Using the Transducers: Linear transducer, the left common femoral vein was examined at the level of the inguinal ligament and 10 centimeters distally. At 1 cm increments, the vein demonstrated Vein Collapse: Complete Collapse with compression. Next, the left popliteal vein was compressed at 1 cm increments along its length in the popliteal fossa and demonstrated Vein Collapse: Complete Collapse with compression. Other findings or limitations: None Conclusion: Point of care limited ultrasound without evidence of a deep vein thrombosis. This study was supervised by an ultrasound credentialed emergency physician. These images were archived digitally and I independently interpreted the images at the bedside and agree with the documented results. EKG: NSR, no acute ST or T-wave changes noted CXR: No acute cardiopulmonary process noted Assessment and Plan: Assessment: 61 y.o. female with hyperlipidemia, varicose veins, and previous superficial venous thrombi embolism who presented to the emergency Department for rash for bilateral upper extremities andleft lower extremity since June for which she had attempted topical and oral steroids without improvement. The patient felt like the rash in her left lower extremity has worsened and now had increasedswelling. The patient was nontoxic-appearing presentation with stable vital signs. She was noted tohave a red crusting rash which was blanchable and encircled of forearms as well as her left lower extremity from the ankle to the knee. She also has 1+ pitting edema to the left ankle and foot. Bedside ultrasound showed no evidence of DVT but did show cobblestoning which was consistent with a cellulitis over her rash. Inflammatory markers were normal. The patient did also mention that she had intermittent short episodes of nonexertional chest pain over the past few weeks, but EKG and troponin were ordered. EKG was nonischemic and troponin was negative. I discussed with the patient that she would need further evaluation by dermatology for rash. I also gave her prescription for Keflex to treat her overlying cellulitis. There was no evidence of an emergent process requiring further intervention in the emergency department this evening. The patient was deemed stable for discharge. All questi ons were answered prior to discharge. Return precautions were verbally discussed with the patient and written in discharge instructions, including fevers, shortness of breath, worsening chest pain, worsening rash, or other concerns. The patient expressed understanding that she could come back to the ED at any time and agreed to the follow-up plan. Plan: - Discharge - Keflex for cellulitis of left lower extremity - Referral placed to dermatology for rash - Patient will stop taking her steroid cream for the time being as it is not providing any relief - Return precautions discussed Milind Riggs MD Resident 08/29/16 7249 Associated attestation - Alize Mcdowell MD - 09/05/2016 3:53 PM EDT ED ATTENDING ATTESTATION NOTE The patient was seen in conjunction with Dr. Riggs, the resident physician. I have independently performed the aguilera portions of the history and physical exam. I have reviewed the nursing notes, vital signs, and all diagnostic studies personally including labs, imaging studies and EKGs. I have discussed the details of the case with the resident and agree with the assessment and plan as described inthe resident note above unless noted otherwise below. Brief Summary: 61 yo F with hx rash BLE x months, here today because now increasingly red and pruritic. PE notable for confluent papular rash LLE with associated erythema and skin breaks, present also on BUE. Labs neg acute including ESR and CRP. Will treat for secondary cellulitic infection, referral placed to dermatology Final Assessment: rash I have reviewed the ultrasound images with the resident and agree with the interpretation. documented in this encounter Miscellaneous Notes * ED Triage - Keyla Santos RN - 08/29/2016 4:08 PM EDT PT presents to the ED AAOX4 c/o rash on all four extremities X 4 months. PT states, They gave me creams, and those didn't work. The rash graham and my left lower leg is swollen with the veins popping out. Basically I am here because I am getting nowhere with my doctors. pt denies numbness tingling, fever, chills, n/v/d, weakness. Respirations even and unlabored. documented in this encounter Plan of Treatment Scheduled Referrals Name Type Priority Associated Diagnoses Order Schedule Referral to Dermatology Outpatient Referral Routine Ordered: 08/29/2016 documented as of this encounter Procedures Procedure Name Priority Date/Time Associated Diagnosis Comments XR CHEST PA AND LATERAL STAT 08/29/2016 8:17 PM EDT CRP, ACUTE INFLAMMATION STAT 08/29/2016 7:00 PM EDT BMP W/FASTING GLUCOSE STAT 08/29/2016 7:00 PM EDT HEMOGRAM STAT 08/29/2016 7:00 PM EDT DIFFERENTIAL, AUTOMATED STAT 08/29/2016 7:00 PM EDT GOLD TUBE HOLD STAT 08/29/2016 7:00 PM EDT BLUE TUBE HOLD STAT 08/29/2016 7:00 PM EDT SEDIMENTATION RATE STAT 08/29/2016 7: 00 PM EDT CBC (WITH DIFF) STAT 08/29/2016 7:00 PM EDT TROPONIN STAT 08/29/2016 7:00 PM EDT EKG 12-LEAD STAT 08/29/2016 6:52 PM EDT documented in this encounter Results * XR Chest PA & Lateral (Generic) (08/29/2016 8:17 PM EDT) Anatomical Region Laterality Modality Chest N/A Digital Radiogra phy Impressions 08/29/2016 9:13 PM EDT No acute cardiopulmonary abnormality. I have personally reviewed the image(s) and the residents interpretation and agree with the findings, JOSEFA COOK at 08/29/2016 9:13 PM Narrative 08/29/2016 9:13 PM EDT EXAMINATION: XR CHEST PA AND LATERAL (GENERIC) CLINICAL HISTORY: chest pain TECHNIQUE: AP and lateral upright views of the chest COMPARISON: None FINDINGS: Lung volumes are low. No focal consolidation, pleural effusion, or pneumothorax. Cardiomediastinal silhouette, karolina, and pulmonary vasculature are normal. No acute osseous abnormalities. Procedure Note Josefa Cook MD - 08/29/2016 EXAMINATION: XR CHEST PA AND LATERAL (GENERIC) CLINICAL HISTORY: chest pain TECHNIQUE: AP and lateral upright views of the chest COMPARISON: None FINDINGS: Lung volumes are low. No focal consolidation, pleural effusion, orpneumothorax. Cardiomediastinal silhouette, karolina, and pulmonary vasculature are normal.No acute osseous abnormalities. IMPRESSION No acute cardiopulmonary abnormality. I have personally reviewed the image(s) and the residents interpretationand agree with the findings, JOSEFA COOK at 08/29/2016 9:13 PM Alize Mcdowell MD IMG DX ORDERABLES * Gold Tube HOLD (08/29/2016 7:00 PM EDT) Gold Hold Sample in lab. [facility] Blood specimen (specimen) Venous Draw / Unknown 08/29/2016 7:00 PM EDT 08/29/2016 7:22 PM EDT Alize Mcdowell MD CHEMISTRY ORDERABLE S [facility] [place] [address] * Blue Tube HOLD (08/29/2016 7:00 PM EDT) Pathologist [facility] Blue Hold Sample in lab. [facility] Blood specimen (specimen) Venous Draw / Unknown 08/29/2016 7:00 PM EDT 08/29/2016 7:22 PM EDT Alize Mcdowell MD HEMATOLOGY ORDERABL ES [facility] [place] [address] * Differential, Automated (08/29/2016 7:00 PM EDT) [facility] Neutrophil % 60.1 % [facility] Neutrophil Absolute 4.94 1.70 - 6.10 x10(3)/[facility] Lymph % 27.2 % [facility] Lymphocytes Abs 2.2 0.9 - 3.2 x10(3)/[facility] Monocyte % 6.2 % [facility] Monocyte Abs 0.5 0.3 - 0.9 x10(3)/[facility] Eos % 5.5 % [facility] Eosinophils Abs 0.4 0.0 - 0.4 x10(3)/[facility] Basophil % 0.6 % [facility] Baso Absolute 0.0 0.0 - 0.1 x10(3)/[facility] Immature Gran % 0.40 % [facility] Comment: Immature granulocytes(IG's)percentage and absolute count will include metamyelocytes, myelocytes, and promyelocytes. Blood smears from CBCs yielding IG's will be scanned manually for concordance. If this scan disagrees with the automated IG or if promyelocytes are noted, a manual differential will be performed. Immature Gran Absolute 0.03 0.00 - 0.04 x10(3)/[facility] Blood specimen (specimen) 08/29/2016 7:00 PM EDT 08/29/2016 7:21 PM EDT Narrative Resulting Agency Comment Spec In Lab Alize Mcdowell MD HEMATOLOGY ORDERABL ES [facility] [place] [address] * Hemogram (08/29/2016 7:00 PM EDT) White Blood Cell 8.2 4.0 - 9.5 x10(3)/[facility] Red Blood Cell 5.13 4.00 - 5.21 x10(6)/[facility] Hemoglobin 13.9 11.7 - 15.5 gm/dL [facility] Hematocrit 42.6 35.7 - 45.8 % [facility] Mean Cell Volume 83.0 82.6 - 94.4 fL [facility] Mean Cell Hemoglobin 27.1 27.1 - 32.0 pg [facility] Mean Cell Hemoglobin Concentration 32.6 31.7 - 35.0 gm/dL [facility] Platelet 303 145 - 357 x10(3)/[facility] RDW Standard Deviation 38.4 37.0 - 46.0 [facility] RDW coefficient of variation 12.5 11.5 - 14.1 % [facility] Mean Platelet Volume 10.6 7.6 - 12.9 fL [facility] NRBC% auto 0.0 % [facility] NRBC Absolute 0.000 0.000 - 0.000 x10(3)/[facility] Blood specimen (specimen) 08/29/2016 7:00 PM EDT 08/29/2016 7:21 PM EDT Narrative Resulting Agency Comment Spec In Lab Alize Mcdowell MD HEMATOLOGY ORDERABL ES [facility] [place] [address] * (ABNORMAL) BMP w/fasting Glucose (08/29/2016 7:00 PM EDT) [facility] Glucose Fasting 110(H) 65 - 99 mg/dL [facility] Comment: ?Fasting* Glucose Interpretive Criteria Normal ?65-99 mg/dL Impaired Fasting glucose ?100-125 mg/dL Consistent with Diabetes Mellitus ? >or= 126 mg/dL *Fasting is defined as no caloric intake for at least 8 hours In the absence of unequivocal hyperglycemia a plasma glucose value of >or= 126 mg/dL should be repeated on a subsequent day. Diagnosis and Classification of Diabetes Mellitus, Position Statement from the [place] [employer]. ??Diabetes Care, Volume 33, Supplement 1, Feb 2009 Blood Urea Nitrogen 14 8 - 18 mg/dL [facility] Creatinine 0.73 0.70 - 1.20 mg/dL [facility] Comment: Please note that the pediatric reference intervals supplied above were not validated at [facility]. Results from pediatric patients should be interpreted in conjunction to the patient's age, height and muscle mass. Sodium 137 135 - 145 mmol/L [facility] Potassium 4.3 3.5 - 5.0 mmol/L [facility] Comment: Please note: ??Patients with WBC >100,000 may have falsely elevated Potassium levels. ??For accurate Potassium quantification in these patients send serum separator tube (gold top) for subsequent determinations. ??Contact the Clinical Chemistry Laboratory if there are any questions. Chloride 102 98 - 107 mmol/L [facility] Carbon Dioxide 24 22 - 31 mmol/L [facility] Anion Gap 11 5 - 15 mmol/L [facility] Calcium 9.2 8.5 - 10.5 mg/dL [facility] Est Glomerular Filtration Rate >60 >=60 [facility] Comment: This estimated GFR (eGFR) value was calculated using the MDRD equation which has been validated on patients between the ages of 18 and 70. The MDRD should not be used to assess kidney function in patients < 18 years of age or in patients with extremes of body mass, or in patients with acute kidney failure. This value should be multiplied by 1.2 for patients. For further information please copy and paste the following links into your internet browser. [email or web address] [email or web address] Blood specimen (specimen) 08/29/2016 7:00 PM EDT 08/29/2016 7:21 PM EDT Narrative Resulting Agency Comment Spec In Lab Alize Mcdowell MD CHEMISTRY ORDERABLE S Performing Organization Address [facility] Co de Phone Number [facility] [place] [address] * (ABNORMAL) CRP, acute inflammation (08/29/2016 7:00 PM EDT) C-Reactive Protein 5.9(H) <=4.9 mg/L [facility] Blood specimen (specimen) 08/29/2016 7:00 PM EDT 08/29/2016 7:21 PM EDT Narrative Resulting Agency Comment Spec In Lab Alize Mcdowell MD CHEMISTRY ORDERABLE S Performing Organization Address [facility] Co de Phone Number [facility] [place] [address] * Sedimentation rate (08/29/2016 7:00 PM EDT) Sedimentation Rate Automated 10 0 - 20 mm/hr [facility] Blood specimen (specimen) 08/29/2016 7:00 PM EDT 08/29/2016 7:21 PM EDT Narrative Resulting Agency Comment Spec In Lab Alize Mcdowell MD HEMATOLOGY ORDERABL ES Performing Organization Address [facility] Co de Phone Number [facility] [place] [address] * Troponin T (08/29/2016 7:00 PM EDT) Troponin-T <0.03 <=0.03 ng/mL [facility] Comment: 0.03 ng/mL: Represents the 99th percentile upper reference limit for normals. >0.03 ng/mL: Elevated cardiac troponin T level indicative of myocardial damage. Diagnosis of acute, evolving or recent CT requires a typical rise and gradual fall of cTnT with at least ONE of the following: a) Ischemic symptoms b) Development of pathologic Q waves on the ECG c) ECG changes indicative of eschemia (S-T segment elevation/depression) d) Coronary artery intervention Serial bloods should be obtained for testing on admission, at 6 to 9 hrs and again at 12 to 24 hrs if earlier samples are negative and the clinical index of suspicion is high. Reference: [Myocardial infarction redefined? a consensus document of the Joint Society of Cardiology/[place] [employer] Committee for the redefinition of myocardial infarction. ??Journal of the [place] College of [employer]iology 2000; 36: 959-969] Blood specimen (specimen) 08/29/2016 7:00 PM EDT 08/29/2016 7:21 PM EDT Narrative Resulting Agency Comment Spec In Lab Alize Mcdowell MD CHEMISTRY ORDERABLE S Performing Organization Address City/State/[facility] Co de Phone Number [facility] [place] [address] * EKG 12 Lead (08/29/2016 6:52 PM EDT) Pathologist [facility] Ventricular rate 74 BPM MUSE SYSTEM Atrial Rate 74 BPM MUSE SYSTEM P-R Interval 134 ms MUSE SYSTEM QRS Duration 74 ms MUSE SYSTEM Q-T Interval 406 ms MUSE SYSTEM QTC Calculated (Bezet) 450 ms MUSE SYSTEM Calculated P Bogata -8 degrees MUSE SYSTEM Calculated R [place] 8 degrees MUSE SYSTEM Calculated T [place] 43 degrees MUSE SYSTEM INTERPRETATION Normal sinus rhythm Normal ECG No previous ECGs available Confirmed by MD Chelsea, Robert Banks ([id number]) on 08/30/2016 8:18:29 AM MUSE SYSTEM 08/29/2016 6:52 PM EDT 08/30/2016 8:18 AM EDT Alize Mcdowell MD ECG ORDERABLES [employer] SYSTEM documented in this encounter Visit Diagnoses Diagnosis Skin rash Rash and other nonspecific skin eruption Cellulitis, unspecified cellulitis site Cellulitis of left leg Cellulitis and abscess of leg, except foot documented in this encounter Care Teams Restaurant Assistant Manager Relationship Specialty Start Date End Date Murphy Stewart MD [address] [place] [address] PCP - General 09/05/10 03/05/22 documented as of this encounter
--- OUTSIDE RECORDS SUMMARY | 2023-10-03 12:38 | XMS_ITS | Encounter Summary ---
Author Organization [facility] Address [facility] [address] [place] [address] Care Team Providers Care Local Company Flatbed Truck Driver Name Role Phone Murphy Stewart MD Primary Care Provider [phone] Encounter Details Date Type Department Care Team (Late st Contact Info) Description 09/06/2010 Orders Only [facility] [address] [facility] [place] [address] Lucinda Borrero MD [facility] [place] [address] Abnormal mammogram, unspecified (Primary Dx) Social History Tobacco Use Types [...] on file documented as of this encounter Results * Mammo breast US [...] Lucinda Borrero MD IMG MAMMO ORD ERABLES * Mammo call back diagnostic extra view unilateral (09/12/2010 2:04 PM EDT) Anatomical Region Laterality Modality Breast N/A Mammography 09/12/2010 2:04 PM EDT Narrative 09/13/2010 12:49 PM EDT [...] this encounter Visit Diagnoses Diagnosis Abnormal mammogram, unspecified- Primary Abnormal mammogram, unspecified Abnormal mammogram, unspecified documented in this encounter Care Teams Local Company Flatbed Truck Driver Relationship Specialty Start Date End Date Murphy Stewart MD [address] [place] [address] PCP - General 09/05/10 03/05/22 documented as of this encounter
--- OUTSIDE RECORDS SUMMARY | 2023-10-03 12:38 | XMS_ITS | Encounter Summary ---
Author Organization [facility] Address [address] [place] [address] Care Team Providers Care Accounting Consultant Name Role Phone JudsondanaDelaney colbert REN Primary Care Provider [phone] Encounter Details Date Type Department Care Team (Late st Contact Info) Description 06/30/2013 Results Only [facility] Services - [facility] [place] [place] [address], [place] [id number] Kassi Judge, [facility] [address] [place] [address] Social History Tobacco Use Types [...] Diagnosis Comments PAP TEST- RESULT ONLY Routine 06/30/2013 0:00 EDT documented in this encounter Results * PAP TEST- RESULT ONLY (06/30/2013 0:00 EDT) Pathology Report: CYTOPATHOLOGY REPORT Reports generated via electronic interface contain original data; however they are lacking the format of the original report. Caution should be taken when reading/interpreti ng unformatted reports. Name: ? PAYTON LOOMIS ? Accession #: ? [id number] ? : ? 1955 (Age: 58) ??F ?Collect Date: ? 06/30/2013 ? Location: ? [facility] ? Receive Date: ? 07/01/2013 ? Provider: KASSI JUDGE [facility] Copy to: GLADYS VINSON MD ? Final Report SPECIMEN ADEQUACY ? Satisfactory for Evaluation - transformation zone component present GENERAL CATEGORIZATION ? Negative for Intraepithelial Lesion or Malignancy ?? Last Menstrual Period: 03/2013 Specimen/Source: ??Pap Test, Cervix/Endocervix, ThinPrep Imaging System with manual evaluation Document reviewed and electronically signed by: ? Nakia Carl, CT(ASCP)(IAC) ? Report ??Date: 07/09/2013 11:56 HPV with Pap Test ? Date Ordered: ? 07/09/2013 ? Status: ?? Signed Out ?Date Complete: ? 07/11/2013 ? By: ??System Interface ? Date Reported: ? 07/11/2013 ? Interpretation RESULT: Negative for HPV. No E6 or E7 mRNA is detected from HPV types 16,18,31,33,35, 39,45,51,52,56,58, 59,66, and 68 by oyster bed worker mediated amplification. Comments Document reviewed and electronically signed by: ? System Interface ? Report date: 07/11/2013 By the signature above, the attending physician certifies that he/she has personally conducted a gross and/or microscopic examination of the described specimens and rendered or confirmed the above diagnosis. End of Report [facility] 06/30/2013 07/01/2013 Kassi Judge NEON TUBE PUMPER PATHOLOGY ORDERABLES [facility] [address] [place] [address] documented in this encounter Visit Diagnoses Not on filedocumented in this encounter Care Teams Accounting Consultant Relationship Specialty Start Date End Date Delaney Loza NP [facility] [place] [address] PCP - General 01/03/11 documented as of this encounter
--- OUTSIDE RECORDS SUMMARY | 2023-10-03 12:38 | XMS_ITS | Clinical Summary ---
Author Organization [facility] Address [address] [place] [address] Care Team Providers Care Senior Interior Designer Name Role Phone Delaney Loza NP Primary Care Provider [phone] Social History Tobacco Use Types Packs/Day Years Used Date Smoking Tobacco: Never Assessed Sex and Gender Information Value Date Recorded Sex Assigned at Not on file Gender Identity Not on file Sexual Orientation Not on file Plan of Treatment Health Maintenance Due Date Last Done Comments Hepatitis C Screen 1955 RSV Immunization ( o r 60+ Years) (1 - 1-dose 60+ series) 2017 Fall Risk Screening 2022 COVID-19 Vaccine (24 season) 2022 Care Teams Senior Interior Designer Relationship Specialty Start Date End Date Delaney Loza NP [address] [place] [address] PCP - General 01/03/11
--- OUTSIDE RECORDS SUMMARY | 2023-10-03 12:38 | XMS_ITS | Encounter Summary ---
Author Organization [facility] Address [facility] [place] [address] Care Team Providers Care Track Oiler Name Role Phone Murphy Stewart MD Primary Care Provider [phone] Encounter Details Date Type Department Care Team (Late st Contact Info) Description 09/12/2010 12:34 PM EDT - 09/12/2010 11:59 PM EDT Hospital [place] [id number] CLINIC, Murphy Valente MD [facility] [address] [facility] [address] [place] [address] Abnormal mammogram, unspecified Discharge Disposition: Home Social History Tobacco Use [...] Name Priority Date/Time Associated Diagnosis Comments MAMMO CALL BACK DIAGNOSTIC EXTRA VIEW UNILATERAL Routine 09/12/2010 2:04 PM EDT Abnormal mammogram, unspecified documented in this encounter Results * Mammo call back diagnostic extra view [...] unspecified documented in this encounter Care Teams Track Oiler Relationship Specialty Start Date End Date Murphy Stewart MD [address] [place] [address] PCP - General 09/05/10 03/05/22 documented as of this encounter
--- OUTSIDE RECORDS SUMMARY | 2023-10-03 12:38 | XMS_ITS | Encounter Summary ---
Author Organization [facility] Address [address] [place] [address] Care Team Providers Care Financial Sales Consultant Name Role Phone Unavailable Primary Care Provider Unavailabl e Encounter Details Date Type Department Care Team (Late st Contact Info) Description 12/20/2010 Results Only [facility] Laboratory Services - [facility] ([facility] [place] [address] [place] [address] Kassi Judge, [facility] [address] [place] [address] Social History Tobacco Use Types [...] Diagnosis Comments PAP TEST- RESULT ONLY Routine 12/20/2010 0:00 EDT documented in this encounter Results * PAP TEST- RESULT ONLY (12/20/2010 0:00 EDT) Pathology Report: CYTOPATHOLOGY REPORT Reports generated via electronic interface contain original data; however they are lacking the format of the original report. Caution should be taken when reading/interpreti ng unformatted reports. Name: ? PAYTON LOOMIS ? Accession #: ? [id number] ? : ? 1955 (Age: 55) ??F ?Collect Date: ? 12/20/2010 ? Location: ? [facility] ? Receive Date: ? 12/21/2010 ? Provider: KASSI JUDGE ROD MILL TENDER Copy to: KYAW HAIRSTON FOLDER OPERATOR ? Final Report SPECIMEN ADEQUACY ? Satisfactory for Evaluation - transformation zone component present GENERAL CATEGORIZATION ? Negative for Intraepithelial Lesion or Malignancy ?? Last Menstural Period: 11/09/10 Treatment History: Cryotherapy: age 20's, normal paps since Specimen/Source: ??Pap Test, Cervix/Endocervix, ThinPrep Imaging System with manual evaluation Document reviewed and electronically signed by: ? ALVAREZ Delarosa(ASCP) ? Report ??Date: 12/28/2010 14:18 HPV with Pap Test ? Date Ordered: ? 12/28/2010 ? Status: ?? Signed Out ?Date Complete: ? 01/02/2011 ? By: ??System Interface ? Date Reported: ? 01/02/2011 ? Interpretation RESULT: Negative for HPV types 16, 18, 31, 33, 35, 39, 45, 51, 52, 56, 58, 59, and 68. Comments Document reviewed and electronically signed by: ? System Interface ? Report date: 01/02/2011 By the signature above, the attending physician certifies that he/she has personally conducted a gross and/or microscopic examination of the described specimens and rendered or confirmed the above diagnosis. End of Report [facility] 12/20/2010 12/21/2010 Kassi Judge ROD MILL TENDER PATHOLOGY ORDERABLES Performing Organization Address City/State/[facility] Co de Phone Number [facility] [address] [address] documented in this encounter Visit Diagnoses Not on filedocumented in this encounter
--- OUTSIDE RECORDS SUMMARY | 2023-10-03 12:38 | XMS_ITS | Encounter Summary ---
Author Organization [facility] Address [facility] [place] [address] Care Team Providers Care Probation Agent Name Role Phone Murphy Stewart MD Primary Care Provider [phone] Reason for Visit * Reason Comments Varicose Veins Encounter Details Date Type Department Care Team (Late st Contact Info) Description 09/05/2010 2:20 PM EDT Office Visit [place] [address] [facility] [place] [place] [address] Varicose veins (Primary Dx) Discharge Disposition: Home Social History Tobacco Use [...] Sign Reading Time Taken Comments Blood Pressure 130/88 09/05/2010 1:47 PM EDT Lef t arm Pulse 80 09/05/2010 1:47 PM EDT Temperature - - Respiratory Rate - - Oxygen Saturation - - Inhaled Oxygen Concentration - - Weight 85.3 kg (188 lb) 09/05/2010 1:47 PM EDT Height 154.9 cm (5' 1) 09/05/2010 1:47 PM EDT Body Mass Index 35.52 09/05/2010 1:47 PM EDT documented in this encounter Progress Notes * Damian Love MD - 09/07/2010 6:16 PM EDT Subjective: Patient ID: Marsha Beaulieu is a 55 y.o. female. HPI Pt has long h/o of varicose veins LLE now presents with 2 instances of severe bleeding from medial spider/ variocse veins. This was controlled with leg elevation and compression. No h/o DVT or leg swelling. She has used compression stockings when bleeding occurred. She has a signififcant family h/jani sister with DVT , sisters daughter with fatal PE, and father with DVT. No known hypercoag state. Patient Active Problem List Diagnoses Code ??? Hyperlipidemia 272.4S ??? Varicose veins 454.9E Review of Systems Constitutional: Negative. HENT: Negative. Eyes: Positive for visual disturbance. 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 Cardiovascular: Negative. Gastrointestinal: Negative. Genitourinary: Negative. Musculoskeletal: Negative. Skin: Positive for rash. Neurological: Negative. Hematological: Bruises/bleeds easily. Psychiatric/Behavioral: Negative. Objective: Physical Exam Constitutional: She is oriented to person, place, and time. She appears well-developed. HENT: Head: Normocephalic. Eyes: Conjunctivae are normal. Pupils are equal, round, and reactive to light. Neck: Normal range of motion. Cardiovascular: Normal rate and regular rhythm. Pulses: Dorsalis pedis pulses are 2+ on the right side, and 2+ on the left side. Pulmonary/Chest: Effort normal. Abdominal: Soft. Musculoskeletal: Normal range of motion. She exhibits tenderness. She exhibits no edema. Legs: Neurological: She is alert and oriented to person, place, and time. She has normal reflexes. No cranial nerve deficit. Coordination normal. Skin: Skin is warm and dry. Psychiatric: She has a normal mood and affect. Her behavior is normal. Thought content normal. Assessment and Plan: Symptomatic Left lower extremity spider and varicose veins. I have explained the etiology of varicose veins and chronic venous insufficiency (valve incompetence and venous hypertension). I have explained that these conditions can be bothersome, they are not dangerous and the main reason for intervention is quality of life and disability from pain. Because of bleeding I suggested that she proceed with either scleroRx or VNUS and excision of varicose veins, because of her family h/o of DVT/PE I suggested that scleroRx may be the best initial choice. She wishes to think this over and will call my office if she wishes to proceed. documented in this encounter Plan of Treatment Not on file documented as of this encounter Visit Diagnoses Diagnosis Varicose veins- Primary Asymptomatic varicose veins documented in this encounter Care Teams Probation Agent Relationship Specialty Start Date End Date Murphy Stewart MD [address] [place] [address] PCP - General 09/05/10 03/05/22 documented as of this encounter
--- OUTSIDE RECORDS SUMMARY | 2023-10-03 12:38 | XMS_ITS | Encounter Summary ---
Author Organization [facility] [place] [address] Care Team Providers Care Heel Seat Flap Stapler Name Role Phone Murphy Stewart MD Primary Care Provider [phone] Encounter Details Date Type Department Care Team (Late st Contact Info) Description 09/05/2010 12:30 PM EDT Office Visit [place] [address] Gabriela Moreland, RVT Social History Tobacco Use Types Packs/Day Years [...] on filedocumented in this encounter Care Teams Heel Seat Flap Stapler Relationship Specialty Start Date End Date Murphy Stewart MD [address] [place] [address] [address] [place] [address] PCP - General 09/05/10 03/05/22 documented as of this encounter
[2023-10-03 21:33] LABS: ALT 36 U/L (14-59); AST 24 U/L (15-37); Albumin 3.9 g/dL (3.4-5.0); Alkaline Phosphatase 126 U/L (46-116); BUN 11 mg/dL (7-18); Bilirubin, Total 0.54 mg/dL (0.2-1.0); CREATININE 0.7 mg/dL (0.55-1.02); Calcium 9.7 mg/dL (8.5-10.1); Calculated LDL 103 mg/dL (<100); Chloride 101 mmol/L (98-107); Cholesterol 192 mg/dL (<200); Estimated GFR 95.32 (mL/min/1.73m2); Glucose 137 mg/dL (74-106); HDL Cholesterol 70 mg/dL (40-60); Potassium 4.4 mmol/L (3.5-5.1); Sodium 137 mmol/L (136-145); Total Protein 7.6 g/dL (6.4-8.2); Triglyceride 98 mg/dL (<150)
[2023-10-05 09:07] LABS: HIV-1/2 Ag & Ab Screen Negative (Negative)
[2023-10-05 09:33] LABS: Hepatitis C Ab w Rflx HCV PCR Negative (Negative)
== END 2023-10-03 12:36 | disposition home or self-care (01) ==
LOC: LBN 12:35
PROVIDERS: PCP Nurse Practitioner Family; Visit Provider Nurse Practitioner Family
DX: Z11.4 Encounter for screening for human immunodeficiency virus [HIV] (principal); E78.5 Hyperlipidemia, unspecified; Z11.59 Encounter for screening for other viral diseases; Z12.4 Encounter for screening for malignant neoplasm of cervix
CPT/HCPCS: 80053; 80061; 86803; 87389; 88142

== ENCOUNTER 2024-04-22 16:21 | Outpatient (CLI) | payer MEDICARE, MEDICAID, SELFPAY ==
--- NOTE | 2024-04-22 15:45 | DI.RAD_ITS ---
Exam(s) XR THORACIC SPINE COMPLETE EXAM: XR THORACIC SPINE COMPLETE CLINICAL HISTORY: fall Pain in Thoracic spine M54.6. TECHNIQUE: 2D digital imaging was performed. COMPARISON: CT CT CHEST PE CTA from 09/16/2022 FINDINGS: 3 views There is a compression fracture of T10 which was not evident on prior CT scan of August 2022. There is approximately 20 percent height loss. No obvious retropulsion. No listhesis. No significant disc space narrowing. IMPRESSION: T10 superior endplate compression fracture with approximately 20 percent height loss. DATA REPOSITORY: RADIATION DOSE DELIVERED:
== END 2024-04-22 16:41 ==
LOC: DI 16:22
PROVIDERS: PCP Nurse Practitioner Family; Visit Provider Nurse Practitioner Family
DX: M54.6 Pain in thoracic spine (principal)
CPT/HCPCS: 72072

== ENCOUNTER 2024-07-17 16:59 | Emergency (ER) | payer MEDICARE, MEDICAID, SELFPAY ==
[2024-07-17] VITALS (19 sets, daily range): BP systolic 150–197; BP diastolic 72–97; PULSE 74–92; RESP 12–21; TEMP 37; O2SAT 96–100
--- NOTE | 2024-07-17 18:47 | W.ED.GENAD ---
Discharge Plan Disposition Patient Disposition: Home Condition: Stable Discharge Details Clinical Impression: Swelling of left lower extremity, Ulcer of left lower extremity Primary Care Provider: Jose Antonio Ivey ED Provider: Graciela Howard Home Meds and New Rx's Prescriptions: New cephalexin 500 mg capsule 500 mg PO QID 5 Days Qty: 20 0RF sulfamethoxazole-trimethoprim [Bactrim DS] 800-160 mg tablet 1 tab PO BID 5 Days Qty: 10 0RF No Action cetirizine [Allergy Relief (cetirizine)] 5 mg tablet 5 mg PO DAILY PRN (Reason: allergy symptoms) Qty: 90 0RF docusate sodium [Colace] 100 mg capsule 100 mg PO BID Qty: 60 0RF polyethylene glycol 3350 17 gram powder in packet 17 g PO BID PRN PRN (Reason: constipation) Qty: 60 0RF triamcinolone acetonide 0.1 % ointment 1 applic topical BID Qty: 80 1RF Patient Comments: does not take Rx Instructions: to affected area prn (DME) blood-glucose meter [[employer] Voice Glucose Meter] Kit See Rx Instructions .Route Qty: 1 0RF Rx Instructions: As directed (DME) Prodigy No Coding Strip See Rx Instructions .Route Qty: 50 0RF Rx Instructions: Test blood glucose 1x daily as directed (DME) lancing device [Prodigy Lancing Device] Misc See Rx Instructions .Route Qty: 1 0RF Rx Instructions: As directed (DME) lancets [Prodigy Lancets] 26 gauge misc See Rx Instructions .Route Qty: 100 4RF Rx Instructions: Take blood glucose 1x daily ketoconazole 2 % cream 1 applic topical DAILY Qty: 120 6RF Rx Instructions: Apply to toenails once daily rosuvastatin 5 mg tablet 5 mg PO DAILY Qty: 90 4RF Patient Comments: does not take aspirin [Aspirin Low-Strength] 81 MG tablet,chewable 1 - 2 tab PO DAILY PRN Patient Comments: 06/07/17 Taking one tab daily. LR multivitamin [Daily-Lorin] 1 EACH tablet 1 ea PO DAILY ibuprofen 200 mg capsule 200 mg PO Q6H PRN pantoprazole 20 mg tablet,delayed release (DR/EC) 20 mg PO DAILY@0730 Qty: 90 1RF Discharge Instructions Instructions: Cellulitis (Skin Infection), Adult ED Additional Instructions: You were seen in the emergency department today for evaluation of left lower extremity swelling, pain, and new discharge from your chronic wound. In our department you do full physical examination performed, had laboratory studies that were reassuring, though the lab for blood clot was slightly elevated. You had an ultrasound performed at bedside that did not show any obvious large DVT, but this is not a formal ultrasound. I have ordered a formal ultrasound to be done in the next few days at our department. Given the reassuring bedside ultrasounds, we have held on initiation of blood thinning medications until you have been definitively diagnosed. If you develop shortness of breath, chest pain, or a sudden change or worsening of your leg swelling you need to return to the emergency department sooner. You have evidence of a mild skin infection in the area of your ulcer known as cellulitis. You were started on 2 antibiotics to cover the most common bacteria that cause problems with these wounds. Please take all of the medicine until it is gone, even if you start to feel better. Please follow-up with your primary care provider in the next few days to discuss this visit and any symptoms that change, worsen, or persist. Thank you for allowing us to be part of your care. Discharge Orders Other Ambulatory Orders: US lower extremity venous LT (Routine) Timeframe: 3 Days Facility: [facility] - Location: DIAGNOSTIC IMAGING Ordered By: Graciela Howard [facility] General Mode of arrival: ambulatory. Date/Time Provider Initiated Documentation: 07/17/24 17:02. Limitations to Documentation: no limitations. Information obtained by: patient and old records reviewed. HPI Narrative: This is a 69-year-old female patient with a history of diabetes, STAN, and venous stasis with an ulcer of her left lower leg, presenting for evaluation of worsening leg swelling as well as new drainage from the area. The patient first noticed that this area had changed today during her wound care, the dressing was being changed and she noted some purulent discharge. She has had intermittent worsening of her pain, especially at night, and notices some swelling of the left lower extremity that is chronic for her. She has not had a fever or chills, has been taking her medications as prescribed, is not currently on any antibiotics. She was sent to the emergency department by [facility] for evaluation for infection versus DVT. She is not anticoagulated. Related Data Home Medications ?Medication ?Instructions ?Recorded ?Confirmed aspirin 81 mg chewable tablet 1 - 2 tab PO DAILY PRN 08/07/12 07/17/24 (Aspirin Low-Strength) multivitamin (Daily-Lorin tablet) 1 ea PO DAILY 07/05/17 07/17/24 ibuprofen 200 mg capsule 200 mg PO Q6H PRN 01/05/20 07/17/24 Prodigy Voice Glucose Meter #1 ea 09/29/22 07/17/24 (blood-glucose meter) blood sugar diagnostic (Prodigy No #50 ea 09/29/22 07/17/24 Coding strips) lancets 26 gauge (Prodigy Lancets) #100 ea 09/29/22 07/17/24 lancing device (Competitory Lancing #1 ea 09/29/22 07/17/24 Device) cetirizine 5 mg tablet (Allergy 5 mg PO DAILY PRN allergy symptoms 01/02/23 07/17/24 Relief (cetirizine)) #90 tabs ketoconazole 2 % topical cream 1 applic topical DAILY #120 grams 05/09/23 07/17/24 rosuvastatin 5 mg tablet 5 mg PO DAILY #90 tabs 01/04/24 07/17/24 docusate sodium 100 mg capsule 100 mg PO BID #60 caps 04/22/24 07/17/24 (Colace) polyethylene glycol 3350 17 gram 17 g PO BID PRN PRN constipation 04/22/24 07/17/24 oral powder packet #60 ea triamcinolone acetonide 0.1 % 1 applic topical BID #80 grams 04/22/24 07/17/24 topical ointment pantoprazole 20 mg tablet,delayed 20 mg PO DAILY@0730 #90 tabs 07/15/24 07/17/24 release cephalexin 500 mg capsule 500 mg PO QID 5 days #20 caps 07/17/24 sulfamethoxazole 800 1 tab PO BID 5 days #10 tabs 07/17/24 mg-trimethoprim 160 mg tablet (Bactrim DS) Previous Rx's ?Medication ?Instructions ?Recorded Prodigy Voice Glucose Meter #1 ea 09/29/22 (blood-glucose meter) blood sugar diagnostic (Prodigy No #50 ea 09/29/22 Coding strips) lancets 26 gauge (Prodigy Lancets) #100 ea 09/29/22 lancing device (Prodigy Lancing #1 ea 09/29/22 Device) cetirizine 5 mg tablet (Allergy 5 mg PO DAILY PRN allergy symptoms 01/02/23 Relief (cetirizine)) #90 tabs ketoconazole 2 % topical cream 1 applic topical DAILY #120 grams 05/09/23 rosuvastatin 5 mg tablet 5 mg PO DAILY #90 tabs 01/04/24 docusate sodium 100 mg capsule 100 mg PO BID #60 caps 04/22/24 (Colace) polyethylene glycol 3350 17 gram 17 g PO BID PRN PRN constipation 04/22/24 oral powder packet #60 ea triamcinolone acetonide 0.1 % 1 applic topical BID #80 grams 04/22/24 topical ointment pantoprazole 20 mg tablet,delayed 20 mg PO DAILY@0730 #90 tabs 07/15/24 release cephalexin 500 mg capsule 500 mg PO QID 5 days #20 caps 07/17/24 sulfamethoxazole 800 1 tab PO BID 5 days #10 tabs 07/17/24 mg-trimethoprim 160 mg tablet (Bactrim DS) Allergies Allergy/AdvReac Type Severity Reaction Status Date / Time lidocaine Allergy Intermediate CHEST PAINS Verified 07/17/24 17:08 amoxicillin trihydrate (From Allergy Mild Hives, per Verified 07/17/24 17:08 Trimox) pt erythromycin base AdvReac Intermediate HEART RACES Verified 07/17/24 17:08 levofloxacin AdvReac Mild Other (See Verified 07/17/24 17:08 Comment) mepivacaine AdvReac Unknown RAPID Verified 07/17/24 17:08 HEART RATE General Stated Complaint: Vascular UMU: 3 Exam Narrative Exam Narrative: Gen: Awake and alert, in no apparent distress HEENT: Non-icteric sclera Neck: Supple Lungs: No apparent respiratory distress, normal respiratory effort. CV: Appears well perfused, strong distal pulses, regular rate and rhythm Abdomen: Non-distended MSK: Moves 4 extremities without apparent limitation in ROM. The patient does have 1-2+ peripheral edema of the left lower extremity, with strong DP pulses and full CSM's at the foot. She has a 2 cm round venous stasis ulcer with scant yellow drainage, no surrounding induration, redness, or tenderness suggestive of cellulitis, no palpable fluctuance. Some tenderness with palpation/squeezing of the posterior calf. Skin: Visualized skin without rashes, cyanosis other than chronic venous stasis changes of the left lower extremity Neuro: No obvious focal deficits or facial asymmetry. Speaks in full, clear sentences. Psych: Appropriate for situation. Course Vital Signs Vital signs: Vital Signs Temperature 37.0 C 07/17/24 17:04 Pulse 84 07/17/24 17:04 Respiratory Rate 20 07/17/24 17:04 Blood Pressure 157/83 H 07/17/24 17:04 Pulse Oximetry 97 07/17/24 17:04 Temperature 37.0 C 07/17/24 17:04 Pulse 84 07/17/24 17:04 Respiratory Rate 20 07/17/24 17:04 Blood Pressure 157/83 H 07/17/24 17:04 Blood Pressure Position Sitting 07/17/24 17:04 Pulse Oximetry 97 07/17/24 17:04 Oxygen Delivery Method Room Air 07/17/24 17:04 Oxygen Flow Rate 0 07/17/24 17:04 Medical Decision Making This is a 69-year-old female patient presenting for evaluation of new drainage from a chronic venous stasis ulcer as well as acute on chronic worsening of her left lower extremity swelling. My differential includes but is not limited to skin and soft tissue infection including cellulitis, no physical exam evidence for abscess, and the patient is hemodynamically well, decreasing my suspicion for NSTI, bacteremia, and sepsis. Considered osteomyelitis. I considered DVT, in this patient with unilateral leg swelling, though my bedside ultrasound shows compressible veins from the inguinal crease to the popliteal fossa. We will obtain an x-ray to evaluate for osteomyelitis, and laboratory studies to include CBC, CMP, magnesium, ESR, CRP, and D-dimer. I will provide the patient with a dose of Tylenol for her discomfort. - I independently interpreted the laboratory studies, which show no significant leukocytosis, significant anemia, or thrombocytopenia, though her hemoglobin is lower compared to labs obtained several years ago. The chemistry panel is without evidence of electrolyte abnormality, kidney dysfunction, or liver injury. Inflammatory markers are not elevated. The patient's D-dimer is 721. In the setting of her negative bedside ultrasound for DVT, and a more compelling diagnosis of chronic venous stasis and wound infection, I do not see an indication to empirically anticoagulate this patient, which would come with risks of increased bleeding. However, I think that early formal ultrasound to definitively exclude DVT is indicated, and this study was ordered to be performed in the next 3 days. I will provide the patient with cephalexin and Bactrim for her purulent cellulitis, and recommended follow-up with her outpatient providers for reassessment to ensure that she is improving as expected. At this time, the patient has had a full medical evaluation and is safe for discharge to home. They are hemodynamically stable, ambulatory, and tolerating PO. They are understanding of the follow-up plan and return precautions. They left our facility without incident. Graciela Howard MD Medical Records Medical records reviewed: Yes I reviewed the patient's medical records. Lab Data Lab results reviewed: Yes I reviewed the patient's lab results. 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) Peripheral venous insufficiency (Acute) Type 2 diabetes mellitus without complication, without long-term current use of insulin (Chronic 09/11/17) Obstructive sleep apnea (Chronic) CPAP- doesn't use this- could not tolerate it Constipation (Chronic) Visual loss (Acute) legally blind both eyes, very limited vision Retinitis Pigmentosa Toe pain, left (Acute) Nail dystrophy (Acute) Pain, foot (Acute) Low back pain (Acute) Overactive bladder (Acute) Cervical dystonia (Acute) Umbilical hernia (Acute) Swelling of left lower extremity (Acute) Medical History Hematoma of right thigh Chest pain URI (upper respiratory infection) Chest pain Chest discomfort COVID-19 02/2021 tx with antibody infusion Cervical paraspinal muscle spasm Uterine leiomyoma (12/20/10) Obesity Chronic bilateral low back pain without sciatica (06/07/17) Surgical History History of section Family History Mother Personal history of malignant neoplasm Multiple myeloma Father Essential hypertension Heart disease Hyperlipidemia Sister Diabetes Personal history of malignant neoplasm Heart disease Hyperlipidemia Sister Essential hypertension Diabetes Personal history of malignant neoplasm Ovarian Heart disease Mental disorder Sister Diabetes Personal history of malignant neoplasm Adrenal carcinoma(?) Hyperlipidemia Sister Essential hypertension Diabetes Heart disease Hyperlipidemia Brother No problems noted. Brother Abnormal thyroid exam Grandmother Stroke Grandfather Heart disease Grandfather Essential hypertension Heart disease Grandmother No problems noted. Son Sleep trouble Daughter No problems noted. Daughter No problems noted. Social History Smoking/Tobacco Use Status: Never Second Hand Exposure: Yes Smoking risk assessment performed?: Yes Alcohol Intake: current Alcohol Intake frequency: holidays/special occasions only Drug use: Never Substance use type: does not use Adopted: No Caregiver/Support person: No Household members: none Housing: apartment Communication Needs: Hard of Hearing and Blind Education Level: other Details: LEGALLY BLIND Do you need help understanding health information?: Never Pets and animals: No Sexually active: No Do you think of yourself as: straight/heterosexual Current gender identity: female What is your relationship status?: How often do you talk on the phone with friends or family?: three or more times per week How often do you get together with friends or relatives?: once per week Do you belong to any clubs or organized social groups?: no Panel score (0-1 are the most socially isolated patients): 1 What type of physical activity do you participate in: walking Duration: 15-30 minutes/day Frequency: daily Dora/Jew: None Seatbelt use: always Helmet use: No Drive intox or ride w/intox driver license reviewing officer: No Firearms in home: No Do you feel safe at home: Yes Victim of physical abuse: No Victim of emotional abuse: No Victim of sexual abuse: No PAWSS Have you Been Recently Intoxicated or Drunk Within the Last 30 days?: No Have you Ever Experienced Previous Episodes of Alcohol Withdrawal?: No Have you ever Experienced Withdrawal Seizures?: No Have you ever Experienced Delirium Tremens(DT)s?: No Have you ever undergone Alcohol Rehabilitation Treatment (i.e, inpt ot outpatient treatment programs)?: No Have you ever Experienced Blackouts?: No Have you ever Combined Alcohol with other Downers within the last 90 days?: No Have you ever Combined Alcohol with any other Substance of Abuse during the last 90 days?: No Positive Blood Alcohol level on Presentation? [PCS.BAL]: No Evidence of Increased Autonomic Activity (i.e. HR>120, tremor, sweating, agitation, nausea)?: No Result: 0 POCUS Exam (ED) Limited Vascular Exam DATE OF EXAM: 07/17/24 TIME OF EXAM: 18:47 PROVIDER THAT PERFORMED THE STUDY: Graciela Howard IS THIS A REPEAT EXAM DURING THIS ENCOUNTER: No Vascular Exam: Left lower extremity REASON FOR EXAM: Concern for DVT left lower extremity, Left lower extremity pain and Left lower extremity swelling/edema VISUALIZED STRUCTURES: Left common femoral vein and Left popliteal vein PERTINENT FINDINGS/IMPRESSION: Compressible veins left leg and No apparent abnormalities Exam Complete
[2024-07-17 19:08] LABS: Abs Immature Grans 0.03 10^3/uL (0.0-0.06); Absolute Basophil Count 0.04 10^3/uL (0.0-0.2); Absolute Eosinophil Count 0.05 10^3/uL (0.0-0.7); Absolute Lymphocyte Count 1.58 10^3/uL (1.2-3.4); Absolute Monocyte Count 0.44 10^3/uL (0.1-0.8); Absolute Neutrophil Count 6.19 10^3/uL (1.2-6.7); Basophils % 0.5 %; Eosinophils % 0.6 %; HCT 34.2 % (36.0-46.0); HGB 11.1 g/dL (11.2-15.7); Immature Grans % 0.4 %; MCH 26.3 pg (27.0-33.0); MCHC 32.5 % (32.0-36.0); MCV 81 fL (80-95); MPV 10.8 fL (8.0-11.0); Monocytes % 5.3 %; Neutrophils % 74.2 %; Platelet Count 268 10^3/uL (130-400); RBC 4.22 10^6/uL (3.93-5.22); WBC 8.33 10^3/uL (4.4-10.8)
[2024-07-17 19:09] LABS: ESR 6 mm/hr (0-30)
--- NOTE | 2024-07-17 19:16 | DI.RAD_ITS ---
Exam(s) XR ANKLE LT 2V EXAM: XR ANKLE LT 2V CLINICAL HISTORY: eval osteo. TECHNIQUE: 2D digital imaging was performed. COMPARISON: No exams were available for comparison FINDINGS: Two views There is diffuse soft tissue swelling around the ankle and in the calf. No evidence of fracture or w idening the ankle mortise. Talar dome unremarkable. No osseous tarsal coalition. No evidence of os teomyelitis. Small inferior calcaneal spur noted. Also small enthesophyte on the posterior calcaneu s Achilles insertion site. IMPRESSION: Soft tissue swelling. No acute osseous findings. DATA REPOSITORY: RADIATION DOSE DELIVERED:
[2024-07-17 19:33] LABS: ALT 25 U/L (14-59); AST 22 U/L (15-37); Albumin 3.5 g/dL (3.4-5.0); Alkaline Phosphatase 106 U/L (46-116); Anion Gap 6.7 mmol/L (3-11); BUN 15 mg/dL (7-18); Bilirubin, Total 0.3 mg/dL (0.2-1.0); CO2 28.3 mmol/L (21.0-32.0); CREATININE 0.6 mg/dL (0.55-1.02); Calcium 9.3 mg/dL (8.5-10.1); Chloride 105 mmol/L (98-107); D-Dimer 721 ng/mlFEU (<500); Estimated GFR 98.32 (mL/min/1.73m2); Glucose 100 mg/dL (74-106); Magnesium 2.3 mg/dL (1.8-2.4); Potassium 4.2 mmol/L (3.5-5.1); Sodium 140 mmol/L (136-145); Total Protein 6.7 g/dL (6.4-8.2)
--- NOTE | 2024-07-17 19:33 | DI.VRAD_ITS ---
PROCEDURE INFORMATION: Exam: XR Left Ankle Exam date and time: 07/17/2024 7:14 PM Age: 69 years old Clinical indication: Other: Eval osteo TECHNIQUE: Imaging protocol: Radiologic exam of the left ankle. Views: 1 or 2 views. COMPARISON: US LOWER EXTREMITY VENOUS LT 04/14/2022 2:27 PM FINDINGS: Bones/joints: Plantar calcaneal spur. Posterior calcaneal spur. No acute fracture or subluxation. No focal osseous erosion. Soft tissues: Generalized soft tissue swelling. Evidence of probable chronic ligamentous injury medially. IMPRESSION: No acute bony pathology. Dictated and Authenticated by: Agueda Resendiz MD. Orderin [facility] Rodrigo Owens MD
[2024-07-17 19:35] LABS: C-Reactive Protein < 0.50 mg/dL (<or=0.5)
[2024-07-17] MEDS: Cephalexin 500 MG CAP, 4 CAPS/BTL PO (20:36)
[2024-07-17] MEDS: Sulfameth/Trimeth DS, 2 TABS/BTL 1 TAB PO (20:36)
== END 2024-07-17 20:38 | disposition home or self-care (01) ==
PROVIDERS: Emergency Provider Emergency Medicine; PCP Nurse Practitioner Family
DX: R22.42 Localized swelling, mass and lump, left lower limb (principal); L03.116 Cellulitis of left lower limb; I10 Essential (primary) hypertension; E11.9 Type 2 diabetes mellitus without complications; Z79.82 Long term (current) use of aspirin
CPT/HCPCS: 80053; 85652; 93971; 99283; 73600; 83735; 85025; 85379; 86140

== ENCOUNTER 2024-07-18 13:50 | Outpatient (REF) | payer MEDICARE, MEDICAID, SELFPAY | END 2024-07-18 13:51 | disposition home or self-care (01) | LOC: LBN 13:50 | PROVIDERS: PCP Nurse Practitioner Family; Visit Provider Nurse Practitioner Family | DX: T14.8XXA Other injury of unspecified body region, initial encounter (principal) | CPT/HCPCS: 87077; 87070; 87186; 87205 ==

== ENCOUNTER 2024-07-24 02:09 | Outpatient (CLI) | payer MEDICARE, MEDICAID, SELFPAY ==
--- NOTE | 2024-07-24 08:00 | DI.US_ITS ---
Exam(s) US LOWER EXTREMITY VENOUS LT EXAM: US LOWER EXTREMITY VENOUS LT CLINICAL HISTORY: Evaluate DVT, leg swelling,M79.89 TECHNIQUE: Left lower extremity venous ultrasound performed using grayscale, color-flow, and spectra l Doppler analysis. COMPARISON: US US LOWER EXTREMITY VENOUS LT from 04/14/2022 FINDINGS: The left common femoral, femoral and popliteal veins demonstrate normal compressibility, augmentation , and color Doppler. The posterior tibial and peroneal veins are patent. The saphenofemoral junction is unremarkable. There is no evidence of a Mays cyst. The soft tissues are unremarkable. IMPRESSION: No evidence of a left lower extremity DVT. DATA REPOSITORY:
== END 2024-07-24 02:29 ==
LOC: DI 02:09
PROVIDERS: PCP Nurse Practitioner Family; Visit Provider Emergency Medicine
DX: M79.89 Other specified soft tissue disorders (principal)
CPT/HCPCS: 93971

== ENCOUNTER 2024-09-30 19:53 | Emergency (ER) | payer MEDICARE, MEDICAID, SELFPAY ==
[2024-09-30 20:02] VITALS: BP 137/78; PULSE 98; RESP 16; TEMP 37.5; O2SAT 98
[2024-09-30 20:06] VITALS: BP 137/78; PULSE 98; RESP 16; TEMP 37.5; O2SAT 98
--- NOTE | 2024-09-30 20:28 | W.ED.GENAD ---
Discharge Plan Disposition Patient Disposition: Home Condition: Stable Discharge Details Clinical Impression: Cellulitis of left lower leg Primary Care Provider: Jose Antonio Ivey ED Provider: Moise Montero Home Meds and New Rx's Prescriptions: New clindamycin HCl [Cleocin HCl] 150 mg capsule 450 mg PO TID 10 Days Qty: 90 0RF Continued cetirizine [Allergy Relief (cetirizine)] 5 mg tablet 5 mg PO DAILY PRN (Reason: allergy symptoms) Qty: 90 0RF docusate sodium [Colace] 100 mg capsule 100 mg PO BID Qty: 60 0RF polyethylene glycol 3350 17 gram powder in packet 17 g PO BID PRN PRN (Reason: constipation) Qty: 60 0RF triamcinolone acetonide 0.1 % ointment 1 applic topical BID Qty: 80 1RF Patient Comments: does not take Rx Instructions: to affected area prn (DME) blood-glucose meter [[place] Voice Glucose Meter] Kit See Rx Instructions .Route Qty: 1 0RF Rx Instructions: As directed (DME) Prodigy No Coding Strip See Rx Instructions .Route Qty: 50 0RF Rx Instructions: Test blood glucose 1x daily as directed (DME) lancing device [Prodigy Lancing Device] Misc See Rx Instructions .Route Qty: 1 0RF Rx Instructions: As directed (DME) lancets [Prodigy Lancets] 26 gauge misc See Rx Instructions .Route Qty: 100 4RF Rx Instructions: Take blood glucose 1x daily ketoconazole 2 % cream 1 applic topical DAILY Qty: 120 6RF Rx Instructions: Apply to toenails once daily rosuvastatin 5 mg tablet 5 mg PO DAILY Qty: 90 4RF aspirin [Aspirin Low-Strength] 81 MG tablet,chewable 1 - 2 tab PO DAILY PRN Patient Comments: 06/07/17 Taking one tab daily. LR multivitamin [Daily-Lorin] 1 EACH tablet 1 ea PO DAILY ibuprofen 200 mg capsule 200 mg PO Q6H PRN pantoprazole 20 mg tablet,delayed release (DR/EC) 20 mg PO DAILY@0730 Qty: 90 1RF Discharge Instructions Instructions: Clindamycin (Systemic), Cellulitis (Skin Infection), Adult ED Additional Instructions: You were seen in the emergency department for your right lower extremity swelling, we are going to start you on clindamycin as you had a recent course of cephalexin that failed to improve your leg infection. There is no evidence of lesion, please continue with routine wound care visits, bedside ultrasound showed no evidence of blood clot in the leg and it did show evidence of a superficial cellulitis in the areas of redness. Please take the clindamycin as directed, take Tylenol and ibuprofen as needed and follow-up with your regular provider, please return for any emergent concerns. Referrals: Jose Antonio Ivey NP [Primary Care Provider, Medicine] HPI General Date/Time Provider Initiated Documentation: 09/30/24 20:05. HPI Narrative: 69 year-old female presents to ED today by POV/ambulating with a friend with a chief complaint of L leg redness, has been being managed for leg ulcers- with unna boots- encouraged to present to ED as she could not make it to a scheduled PCP appointment tomorrow. Quality described as mild swelling and redness, no radiation to calf pain, medial thigh pain, gross swelling, current lesions- looking well healed. Severity is described as mild. Palliating factors include Unna boots and a course of Keflex in late August with improvement. Provoking factors include nothing specific. Patient not anticoagulated. Related Data Home Medications ?Medication ?Instructions ?Recorded ?Confirmed aspirin 81 mg chewable tablet 1 - 2 tab PO DAILY PRN 08/07/12 09/30/24 (Aspirin Low-Strength) multivitamin (Daily-Lorin tablet) 1 ea PO DAILY 07/05/17 09/30/24 ibuprofen 200 mg capsule 200 mg PO Q6H PRN 01/05/20 09/30/24 Prodigy Voice Glucose Meter #1 ea 09/29/22 09/30/24 (blood-glucose meter) blood sugar diagnostic ([place] No #50 ea 09/29/22 09/30/24 Coding strips) lancets 26 gauge (Prodigy Lancets) #100 ea 09/29/22 09/30/24 lancing device (Prodigy Lancing #1 ea 09/29/22 09/30/24 Device) cetirizine 5 mg tablet (Allergy 5 mg PO DAILY PRN allergy symptoms 01/02/23 09/30/24 Relief (cetirizine)) #90 tabs ketoconazole 2 % topical cream 1 applic topical DAILY #120 grams 05/09/23 09/30/24 rosuvastatin 5 mg tablet 5 mg PO DAILY #90 tabs 01/04/24 09/30/24 docusate sodium 100 mg capsule 100 mg PO BID #60 caps 04/22/24 09/30/24 (Colace) polyethylene glycol 3350 17 gram 17 g PO BID PRN PRN constipation 04/22/24 09/30/24 oral powder packet #60 ea triamcinolone acetonide 0.1 % 1 applic topical BID #80 grams 04/22/24 09/30/24 topical ointment pantoprazole 20 mg tablet,delayed 20 mg PO DAILY@0730 #90 tabs 07/15/24 09/30/24 release clindamycin HCl 150 mg capsule 450 mg (3 x 150 mg) PO TID 10 days 09/30/24 (Cleocin HCl) #90 caps Previous Rx's ?Medication ?Instructions ?Recorded [place] Voice Glucose Meter #1 ea 09/29/22 (blood-glucose meter) blood sugar diagnostic ([facility] [place] No #50 ea 09/29/22 Coding strips) lancets 26 gauge (Prodigy Lancets) #100 ea 09/29/22 lancing device (Prodigy Lancing #1 ea 09/29/22 Device) cetirizine 5 mg tablet (Allergy 5 mg PO DAILY PRN allergy symptoms 01/02/23 Relief (cetirizine)) #90 tabs ketoconazole 2 % topical cream 1 applic topical DAILY #120 grams 05/09/23 rosuvastatin 5 mg tablet 5 mg PO DAILY #90 tabs 01/04/24 docusate sodium 100 mg capsule 100 mg PO BID #60 caps 04/22/24 (Colace) polyethylene glycol 3350 17 gram 17 g PO BID PRN PRN constipation 04/22/24 oral powder packet #60 ea triamcinolone acetonide 0.1 % 1 applic topical BID #80 grams 04/22/24 topical ointment pantoprazole 20 mg tablet,delayed 20 mg PO DAILY@0730 #90 tabs 07/15/24 release clindamycin HCl 150 mg capsule 450 mg (3 x 150 mg) PO TID 10 days 09/30/24 (Cleocin HCl) #90 caps Allergies Allergy/AdvReac Type Severity Reaction Status Date / Time lidocaine Allergy Intermediate CHEST PAINS Verified 07/17/24 17:08 amoxicillin trihydrate (From Allergy Mild Hives, per Verified 07/17/24 17:08 Trimox) pt erythromycin base AdvReac Intermediate HEART RACES Verified 07/17/24 17:08 levofloxacin AdvReac Mild Other (See Verified 07/17/24 17:08 Comment) mepivacaine AdvReac Unknown RAPID Verified 07/17/24 17:08 HEART RATE General Stated Complaint: Cellulitis UMU: 3 Review of Systems All systems reviewed & are unremarkable except as noted in HPI and below Exam Narrative Exam Narrative: GENERAL APPEARANCE: Well-nourished, non-toxic, awake and alert, atraumatic, no acute distress. SKIN: Warm, pink, dry, mild erythema diffusely to the left calf with some superficial nodularities and varicosities, no open lesions, appears healing to left lateral ankle with complete healing of any prior ulceration, neurovascularly intact in left foot, Homans negative, no medial thigh tenderness HEAD: Normocephalic, atraumatic, normal hair distribution for gender/age. EYES: Normal conjunctiva, no exudates on lids/lashes. ENT: Nares patent, no circumoral cyanosis, no facial swelling NECK: Supple, trachea midline, painless cervical ROM. LUNGS/CHEST: Non-labored respirations, normal A/P diameter, symmetrical expansion, no chest wall deformity HEART (CV/PV): Regular rate, L dorsalis pedis pulse 2+, no peripheral edema, no JVD. ABDOMEN: Soft, non-distended, no guarding. MSK: Normal ROM, no swelling/deformity to bilateral UEs or LEs, moving all extremities without weakness, no cyanosis, spine midline without tenderness, normal curvature. NEURO: Mental Status AAOx4 - alert to person, place, time, events No facial droop, no forehead involvement. Motor: No focal weakness - strength 5/5 in bilateral UEs and LEs, proximal and distal, symmetric. Sensory: sensation intact to light touch globally. Gait NT. PSYCH: euthymic, cooperative, pleasant, appropriate speech Course Vital Signs Vital signs: Vital Signs Temperature 37.5 C 09/30/24 20:02 Pulse 98 H 09/30/24 20:02 Respiratory Rate 16 09/30/24 20:02 Blood Pressure 137/78 09/30/24 20:02 Pulse Oximetry 98 09/30/24 20:02 Temperature 37.5 C 09/30/24 20:06 Pulse 98 H 09/30/24 20:06 Respiratory Rate 16 09/30/24 20:06 Blood Pressure 137/78 09/30/24 20:06 Pulse Oximetry 98 09/30/24 20:06 Pain Level 5 09/30/24 20:06 Medical Decision Making This dictation utilizes [id number] dictation software and may contain unedited grammatical errors. 69 year-old female presents to ED today by POV/ambulating with a friend with a chief complaint of L leg redness, has been being managed for leg ulcers- with unna boots- encouraged to present to ED as she could not make it to a scheduled PCP appointment tomorrow. Quality described as mild swelling and redness, no radiation to calf pain, medial thigh pain, gross swelling, current lesions- looking well healed. Severity is described as mild. Palliating factors include Unna boots and a course of Keflex in late August with improvement. Provoking factors include nothing specific. Patients' medical history: Hematomas, cellulitis, hypertension, T2DM. Family and social history: Noncontributory. Pertinent exam findings / vital signs include mild erythema diffusely to the left calf with some superficial nodularities and varicosities, no open lesions, appears healing to left lateral ankle with complete healing of any prior ulceration, neurovascularly intact in left foot, Homans negative, no medial thigh tenderness. Differential / pathologies of concern include DVT, cellulitis. Diagnostic studies of: - POCUS exam of the left lower extremity shows no DVT of the left lower extremity and does show cellulitic changes to the superficial left calf - see Dr. Ruelas's POCUS addendum Interventions of: - Rx for clindamycin as the patient was previously on Keflex, recommend routine follow-up with wound care with home health and PCP visits and. Findings not consistent with Fracture/Trauma or NV Compromise, DVT, or abscess. Disposition of Cellulitis of Left Lower Leg. Patient verbalized understanding of the plan and return to ED criteria and engaged in shared decision making. Medical Records Medical records reviewed: Yes I reviewed the patient's medical records. 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) Peripheral venous insufficiency (Acute) Type 2 diabetes mellitus without complication, without long-term current use of insulin (Chronic 09/11/17) Obstructive sleep apnea (Chronic) CPAP- doesn't use this- could not tolerate it Constipation (Chronic) Visual loss (Acute) legally blind both eyes, very limited vision Retinitis Pigmentosa Toe pain, left (Acute) Nail dystrophy (Acute) Pain, foot (Acute) Low back pain (Acute) Overactive bladder (Acute) Cervical dystonia (Acute) Umbilical hernia (Acute) Swelling of left lower extremity (Acute) Medical History Hematoma of right thigh Chest pain URI (upper respiratory infection) Chest pain Chest discomfort COVID-19 02/2021 tx with antibody infusion Cervical paraspinal muscle spasm Uterine leiomyoma (12/20/10) Obesity Chronic bilateral low back pain without sciatica (06/07/17) Surgical History History of section Family History Mother Personal history of malignant neoplasm Multiple myeloma Father Essential hypertension Heart disease Hyperlipidemia Sister Diabetes Personal history of malignant neoplasm Heart disease Hyperlipidemia Sister Essential hypertension Diabetes Personal history of malignant neoplasm Ovarian Heart disease Mental disorder Sister Diabetes Personal history of malignant neoplasm Adrenal carcinoma(?) Hyperlipidemia Sister Essential hypertension Diabetes Heart disease Hyperlipidemia Brother No problems noted. Brother Abnormal thyroid exam Grandmother Stroke Grandfather Heart disease Grandfather Essential hypertension Heart disease Grandmother No problems noted. Son Sleep trouble Daughter No problems noted. Daughter No problems noted. Social History Smoking/Tobacco Use Status: Never Second Hand Exposure: Yes Smoking risk assessment performed?: Yes Alcohol Intake: current Alcohol Intake frequency: holidays/special occasions only Drug use: Never Substance use type: does not use Adopted: No Caregiver/Support person: No Household members: none Housing: apartment Communication Needs: Hard of Hearing and Blind Education Level: other Details: LEGALLY BLIND Do you need help understanding health information?: Never Pets and animals: No Sexually active: No Do you think of yourself as: straight/heterosexual Current gender identity: female What is your relationship status?: How often do you talk on the phone with friends or family?: three or more times per week How often do you get together with friends or relatives?: once per week Do you belong to any clubs or organized social groups?: no Panel score (0-1 are the most socially isolated patients): 1 What type of physical activity do you participate in: walking Duration: 15-30 minutes/day Frequency: daily Dora/Alevism: None Seatbelt use: always Helmet use: No Drive intox or ride w/intox local driver: No Firearms in home: No Do you feel safe at home: Yes Victim of physical abuse: No Victim of emotional abuse: No Victim of sexual abuse: No
--- NOTE | 2024-09-30 21:32 | PROC.BLANK_ITS ---
Date of service: 09/30/24 Time of Service: 21:32 Medical Decision Making As we perform a DVT study with Acosta Montero physician assistant manager airside operations Medical Records Medical records reviewed: Yes I reviewed the patient's medical records. POCUS Exam (ED) Limited Vascular Exam DATE OF EXAM: 09/30/24 TIME OF EXAM: 21:33 PROVIDER THAT PERFORMED THE STUDY: Kalia Ruelas Vascular Exam: Left lower extremity REASON FOR EXAM: Left lower extremity pain VISUALIZED STRUCTURES: Left common femoral vein, Left popliteal vein, Left superficial femoral vein and Left greater saphenous vein PERTINENT FINDINGS/IMPRESSION: Compressible veins left leg, No apparent abnormalities and Other (No evidence of DVT good duplex Doppler venous flow with compressibility normal and augmentation) impression: cellulitis left lower leg Exam Complete
[2024-09-30] MEDS: Clindamycin 150 MG CAP 450 MG PO (21:39)
[2024-09-30 21:44] VITALS: BP 132/73; PULSE 85; O2SAT 99
== END 2024-09-30 21:46 | disposition home or self-care (01) ==
PROVIDERS: Emergency Provider Physician Assistant; PCP Nurse Practitioner Family
DX: L03.116 Cellulitis of left lower limb (principal)
CPT/HCPCS: 99284 ×2; 93971

== ENCOUNTER 2024-10-29 14:46 | Outpatient (CLI) | payer MEDICARE, MEDICAID, SELFPAY ==
[2024-10-29 16:17] LABS: ALT 41 U/L (14-59); AST 32 U/L (15-37); Albumin 4.1 g/dL (3.4-5.0); Alkaline Phosphatase 119 U/L (46-116); Anion Gap 9.3 mmol/L (3-11); BUN 13 mg/dL (7-18); Bilirubin, Total 0.5 mg/dL (0.2-1.0); CO2 26.7 mmol/L (21.0-32.0); Calcium 9.7 mg/dL (8.5-10.1); Calculated LDL 69 mg/dL (<100); Chloride 101 mmol/L (98-107); Cholesterol 171 mg/dL (<200); Estimated GFR 94.73 (mL/min/1.73m2); Glucose 127 mg/dL (74-106); HDL Cholesterol 94 mg/dL (>or=50); Potassium 4.5 mmol/L (3.5-5.1); Sodium 137 mmol/L (136-145); Total Protein 7.8 g/dL (6.4-8.2); Triglyceride 42 mg/dL (<150)
[2024-10-29 17:06] LABS: Hemoglobin A1C 6.1 % (<5.7)
[2024-10-30 10:23] LABS: HBs Antibody, Quant <3.1 mIU/mL (See Note); Hepatitis B Surface Antigen Negative (Negative)
== END 2024-10-29 14:47 | disposition home or self-care (01) ==
LOC: LOS 14:49
PROVIDERS: PCP Nurse Practitioner Family; Visit Provider Nurse Practitioner Family
DX: E11.9 Type 2 diabetes mellitus without complications (principal); E78.5 Hyperlipidemia, unspecified; Z11.59 Encounter for screening for other viral diseases
CPT/HCPCS: 36415; 80053; 80061; 86704; 86706; 87340; 83036

== ENCOUNTER 2024-11-29 18:06 | Emergency (ER) | payer MEDICARE, MEDICAID, SELFPAY ==
[2024-11-29 18:07] VITALS: BP 175/91; PULSE 98; RESP 17; TEMP 36.2; O2SAT 99
--- NOTE | 2024-11-29 18:15 | ED.GENADUL_ITS ---
Discharge Plan Disposition Patient Disposition: Home Condition: Improving Discharge Details Clinical Impression: Bleeding from varicose vein Primary Care Provider: Jose Antonio Ivey ED Provider: Kalia Ruelas Meds and New Rx's Prescriptions: Continued cetirizine [Allergy Relief (cetirizine)] 5 mg tablet 5 mg PO DAILY PRN (Reason: allergy symptoms) Qty: 90 0RF docusate sodium [Colace] 100 mg capsule 100 mg PO BID Qty: 60 0RF triamcinolone acetonide 0.1 % ointment 1 applic topical BID Qty: 80 1RF Patient Comments: does not take Rx Instructions: to affected area prn ketoconazole 2 % cream 1 applic topical DAILY Qty: 120 6RF Rx Instructions: Apply to toenails once daily pantoprazole 20 mg tablet,delayed release (DR/EC) 20 mg PO DAILY@0730 Qty: 90 1RF rosuvastatin 5 mg tablet 5 mg PO DAILY Qty: 90 4RF aspirin [Aspirin Low-Strength] 81 MG tablet,chewable 1 - 2 tab PO DAILY PRN Patient Comments: 06/07/17 Taking one tab daily. LR multivitamin [Daily-Lorin] 1 EACH tablet 1 ea PO DAILY ibuprofen 200 mg capsule 200 mg PO Q6H PRN polyethylene glycol 3350 17 gram powder in packet 17 g PO BID PRN PRN (Reason: constipation) Qty: 60 0RF (DME) blood-glucose meter [[employer] Voice Glucose Meter] Kit See Rx Instructions .Route Qty: 1 0RF Rx Instructions: As directed (DME) Prodigy No Coding Strip See Rx Instructions .Route Qty: 50 0RF Rx Instructions: Test blood glucose 1x daily as directed (DME) lancets [Prodigy Lancets] 26 gauge misc See Rx Instructions .Route Qty: 100 4RF Rx Instructions: Take blood glucose 1x daily (DME) lancing device [Prodigy Lancing Device] Misc See Rx Instructions .Route Qty: 1 0RF Rx Instructions: As directed Discharge Instructions Instructions: Treatment of Varicose Veins of the Leg, Vein ablation, How to Put On and Take Off Compression Stockings Discharge Data Discharge Physician: Kalia Ruelas HPI General Date/Time Provider Initiated Documentation: 11/29/24 18:15 . HPI Narrative: Patient presents to the emergency department for she had a left varicose vein that was bleeding. EMS dropped her to the emergency department, bleeding. Related Data Home Medications ?Medication ?Instructions ?Recorded ?Confirmed aspirin 81 mg chewable tablet 1 - 2 tab PO DAILY PRN 0 08/07/12 10/10/24 (Aspirin Low-Strength) multivitamin (Daily-Lorin tablet) 1 ea PO DAILY 8 10/10/24 ibuprofen 200 mg capsule 200 mg PO Q6H PRN 01/05/20 0 10/10/24 cetirizine 5 mg tablet (Allergy 5 mg PO DAILY PRN cookie rgy symptoms 01/02/23 10/10/24 Relief (cetirizine)) #90 tabs ketoconazole 2 % topical cream 1 applic topical DAILY #120 grams 05/09/23 10/10/24 docusate sodium 100 mg capsule 100 mg PO BID #60 caps 04/22/24 10/10/24 (Colace) triamcinolone acetonide 0.1 % 1 applic topical BID #80 grams 04/22/24 10/10/24 topical ointment pantoprazole 20 mg tablet,delayed 20 mg PO DAILY@0730 #90 tabs 10/10/24 10/10/24 release rosuvastatin 5 mg tablet 5 mg PO DAILY #90 tabs 10/1010/10/24 polyethylene glycol 3350 17 gram 17 g PO BID PRN PRN c onstipation 11/04/24 oral powder packet #60 ea [employer] Voice Glucose Meter #1 ea 11/28/24 (blood-glucose meter) blood sugar diagnostic (Prodigy No #50 ea 11/28/24 Coding strips) lancets 26 gauge (Prodigy Lancets) #100 ea 11/28/24 lancing device (Prodigy Lancing #1 ea 11/28/24 Device) Previous Rx's ?Medication ?Instructions ?Recorded cetirizine 5 mg tablet (Allergy 5 mg PO DAILY PRN cookie rgy symptoms 01/02/23 Relief (cetirizine)) #90 tabs ketoconazole 2 % topical cream 1 applic topical DAILY #120 grams 05/09/23 docusate sodium 100 mg capsule 100 mg PO BID #60 caps 04/22/24 (Colace) triamcinolone acetonide 0.1 % 1 applic topical BID #80 grams 04/22/24 topical ointment pantoprazole 20 mg tablet,delayed 20 mg PO DAILY@0730 #90 tabs 10/10/24 release rosuvastatin 5 mg tablet 5 mg PO DAILY #90 tabs 10/10 polyethylene glycol 3350 17 gram 17 g PO BID PRN PRN c onstipation 11/04/24 oral powder packet #60 ea [employer] Voice Glucose Meter #1 ea 11/28/24 (blood-glucose meter) blood sugar diagnostic (Prodigy No #50 ea 11/28/24 Coding strips) lancets 26 gauge (Prodigy Lancets) #100 ea 11/28/24 lancing device (Prodigy Lancing #1 ea 11/28/24 Device) Allergies Allergy/AdvReac Type Severity Reaction Status Date / Time lidocaine Allergy Intermediate CHEST PAINS Verified 10/10/24 11:21 amoxicillin trihydrate (From Allergy Mild Hives, per Verified 10/10/24 11:21 Trimox) pt erythromycin base AdvReac Intermediate HEART RACES Verified 10/10/24 11:21 levofloxacin AdvReac Mild Other (See Verified 10/10/24 11:21 Comment) mepivacaine AdvReac Unknown RAPID Verified 10/10/24 11:21 HEART RATE General Stated Complaint: Vascular UMU: 3 Review of Systems Narrative: Review of Systems: Constitutional: No fevers, chills, sweats Eye: No recent visual problems ENT: No ear pain, nasal congestion, sore throat Respiratory: No shortness of breath, cough Cardiovascular: No Chest pain, palpitations, syncope Gastrointestinal: No nausea, vomiting, diarrhea Genitourinary: No hematuria Jimmy/Lymph: Negative for bruising tendency, swollen lymph glands Endocrine: Negative for excessive thirst, excessive hunger Musculoskeletal: No back pain, neck pain, joint pain, muscle pain, decreased range of motion Integumentary: No rash, pruritus, abrasions Neurologic: Alert & oriented X 4 Psychiatric: No anxiety, depression Exam Narrative Exam Narrative: Exam; vitals signs as reported above normal Constitutional; In no acute distress, afebrile General: cooperative, healthy appearing, comfortable and no acute distress HEENT: Head: normal to inspection, no palpable skull fracture and normocephalic atraumatic Eyes: : appearance normal, both eyes and all related structures EOM intact bilaterally Pupils: PERRL : conjunctiva normal Direct ophthalmoscopy: normal light reflex, normal conjunctiva, normal visual acuity Ears: Normal TM, normal external canal Nose: normal no rhinorreha Neck no JVD, supple non tender Neck: normal visual inspection, full ROM and no lymphadenopathy Chest: normal inspection of the chest Respiratory : normal respiratory effort and able to speak in complete sentences no wheezing no rales Cardio Rate: regular rate, rhythm: regular rhythm normal heart sounds S1 and S2 no murmurs, gallops, or rubs GI : normal to inspection, normal bowel sounds, soft, non tender, non distended, no organomegaly Back/Spine/ no CVA tenderness Thoracic/Lumbar Spine: no tenderness or deformities Skin no rashes or lesions Neuro: patient alert oriented x 4 and no meningeal signs, Cranial Nerves: CN's II-XI intact bilaterally, Cognition: normal cognition, Speech: speech normal, Gait: normal gait, Depp tendon reflexes normal 2+ muscle strength 5/5 bilaterally Extremities, no edema, full range of motion, normal strength while posterior varicose veins exposed and no acute bleeding Course Vital Signs Vital signs: Vital Signs Temperature 36.2 C L 11/29/24 18:07 Pulse 98 H 11/29/24 18:07 Respiratory Rate 17 11/29/24 18:07 Blood Pressure 175/91 H 11/29/24 18:07 Pulse Oximetry 99 11/29/24 18:07 Temperature 36.2 C L 11/29/24 18:07 Temperature Source Tympanic 11/29/24 18:07 Pulse 98 H 11/29/24 18:07 Respiratory Rate 17 11/29/24 18:07 Blood Pressure 175/91 H 11/29/24 18:07 Pulse Oximetry 99 11/29/24 18:07 Pain Level 10 11/29/24 18:07 Medical Decision Making MDM: Summary Patient presents emergency department with request for this time there is no significant bleeding but he states that she believes Surgicel and pressure dressing. Patient does get a wound clinic and she will follow-up with Data Review Analysis All the data on this patient was reviewed by me including laboratory and imaging studies as well as bedside studies performed by me Independent review of Studies Imaging Lab: Risk Stratification: Patient with a varicose vein that she is hemostasis not bleeding Differential Diagnosis: 1. Varicose vein bleeding 2. 3. 4. 5. Consultants: Shared disposition: Patient and daughter and will follow accordingly Impression: Medical Records Medical records reviewed: Yes I reviewed the patient's medical records. 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) Peripheral venous insufficiency (Acute) Type 2 diabetes mellitus without complication, without long-term current use of insulin (Chronic 09/11/17) Obstructive sleep apnea (Chronic) CPAP- doesn't use this- could not tolerate it Constipation (Chronic) Visual loss (Acute) legally blind both eyes, very limited vision Retinitis Pigmentosa Toe pain, left (Acute) Nail dystrophy (Acute) Pain, foot (Acute) Low back pain (Acute) Overactive bladder (Acute) Cervical dystonia (Acute) Umbilical hernia (Acute) Swelling of left lower extremity (Acute) Medical History Cellulitis of left leg (~09/2024) Hematoma of right thigh Chest pain URI (upper respiratory infection) Chest pain Chest discomfort COVID-19 02/2021 tx with antibody infusion Cervical paraspinal muscle spasm Uterine leiomyoma (12/20/10) Obesity Chronic bilateral low back pain without sciatica (06/07/17) Surgical History History of section Family History Mother Personal history of malignant neoplasm Multiple myeloma Father Essential hypertension Heart disease Hyperlipidemia Sister Diabetes Personal history of malignant neoplasm Heart disease Hyperlipidemia Sister Essential hypertension Diabetes Personal history of malignant neoplasm Ovarian Heart disease Mental disorder Sister Diabetes Personal history of malignant neoplasm Adrenal carcinoma(?) Hyperlipidemia Sister Essential hypertension Diabetes Heart disease Hyperlipidemia Brother No problems noted. Brother Abnormal thyroid exam Grandmother Stroke Grandfather Heart disease Grandfather Essential hypertension Heart disease Grandmother No problems noted. Son Sleep trouble Daughter No problems noted. Daughter No problems noted. Social History Smoking/Tobacco Use Status: Never Second Hand Exposure: Yes Smoking risk assessment performed?: Yes Alcohol Intake: current Alcohol Intake frequency: holidays/special occasions only Drug use: Never Substance use type: does not use Adopted: No Caregiver/Support person: No Household members: none Housing: apartment Communication Needs: Hard of Hearing and Blind Education Level: other Details: LEGALLY BLIND Do you need help understanding health information?: Never Pets and animals: No Sexually active: No Do you think of yourself as: straight/heterosexual Current gender identity: female What is your relationship status?: How often do you talk on the phone with friends or family?: three or more times per week How often do you get together with friends or relatives?: once per week Do you belong to any clubs or organized social groups?: no Panel score (0-1 are the most socially isolated patients): 1 What type of physical activity do you participate in: walking Duration: 15-30 minutes/day Frequency: daily Dora/Hoahaoism: None Seatbelt use: always Helmet use: No Drive intox or ride w/intox school bus driver/custodian: No Firearms in home: No Do you feel safe at home: Yes Victim of physical abuse: No Victim of emotional abuse: No Victim of sexual abuse: No
[2024-11-29] MEDS: Gelatin SPONGE 12-7 MM PKT 1 EACH TP (18:54)
== END 2024-11-29 19:46 | disposition home or self-care (01) ==
PROVIDERS: Emergency Provider Emergency Medicine Emergency Medical Services; PCP Nurse Practitioner Family
DX: I83.892 Varicose veins of left lower extremity with other complications (principal)
CPT/HCPCS: 99281 ×2

== ENCOUNTER 2024-12-25 12:43 | Outpatient (CLI) | payer MEDICARE, MEDICAID, SELFPAY ==
--- NOTE | 2024-12-25 12:30 | RT.EKG_ITS ---
APPROVED REPORT Exam: Resting ECG Reason for Exam: palpatations Patient Location: O HR:71 bpm ECG Measurements Heart Rate 71 AXIS MS 163 P 23 QRSd 86 QRS 16 QT 388 T 60 QTc 422 Conclusion Sinus rhythm...normal P axis, V-rate 50- 99 Normal Electrocardiogram
== END 2024-12-25 12:44 | disposition home or self-care (01) ==
LOC: DI.CM 12:44
PROVIDERS: PCP Nurse Practitioner Family; Visit Provider Nurse Practitioner Family
DX: R06.02 Shortness of breath (principal); R00.2 Palpitations
CPT/HCPCS: 93010

== ENCOUNTER 2025-01-22 09:56 | Outpatient (RCR) | payer MEDICARE, OTHER, MEDICAID, SELFPAY ==
--- NOTE | 2025-01-27 09:31 | W.HOLTRPT ---
Date of service: 01/27/25 Time of Service: 09:31 Holter Monitor Report Referring Provider:: Jose Antonio Palomo Indications:: Palpitations Holter Monitor Note: This is a 48-hour Holter monitor. Rhythm throughout was sinus with an average heart rate of 76. Minimum was 46, maximum 115 There were very rare isolated atrial and ventricular ectopic beats There was no atrial fibrillation, no high-grade AV block, no pauses greater than 3 seconds No symptoms were reported
== END 2025-02-18 23:59 | disposition home or self-care (01) ==
LOC: CARDOPNVT 09:56
PROVIDERS: PCP Nurse Practitioner Family; Visit Provider Internal Medicine Cardiovascular Disease
DX: R00.2 Palpitations (principal)
CPT/HCPCS: 93227; 93225; 93226